=== PATIENT | female | born 1975 | race African-American/Black ===

== ENCOUNTER 2018-04-11 21:44 | Emergency (ER) | payer OTHER ==
[~2018-04-11] VITALS: Ht 170.2 cm; Wt 93.4 kg
[~2018-04-11 21:44] MED LIST: NO MEDS; PHENTERMINE H37.5 MG PO; TOPAMAX25 MG PO
--- OUTSIDE RECORDS SUMMARY | 2018-04-11 21:48 | XMS REPORT | Continuity of Care Document ---
Author Author Interface Organization Interface Address Unknown Phone Unavailable Problems Problem Status Onset Date Classification Date Reported Comments Source FOLLOW UP Active 03/30/2018 [facility] Benign neoplasm of meninges, unspecified 01/02/201803/2018 [facility] Encounter for antineoplastic radiation therapy 12/03/2017 03/06/2018 [facility] IMRT Active 10/29/2017 [facility] CONSULT Active 09/14/2017 [facility] Discharge Diagnosis: Abscess of right external cheek 07/04/2017 07/07/2017 [facility] ABSCESS Active 07/04/2017 [facility] BRAIN TUMOR Active 2016 [facility] Discharge Diagnosis: Headache 06/11/2017 06/14/2017 [facility] PAIN ON RIGHT SIDE OF HEAD BLURED VISION Active 06/07/2017 [facility] LAB, FOLLOW UP Active 2016 [facility] DVT; PRE SURGICAL CLEARANCE Active 02/04/2017 [facility] CAROTID OCCLUSION Active [facility] SEIZURE Active 01/02/2017 [facility] DX: D33.0=BENIGN NEOPLASM OF BRAIN, SUPR Active 05/06/2016 [facility] Discharge Diagnosis: Acute headache 04/16/20162015 [facility] Discharge Diagnosis: Brain mass 04/16/2016 04/19/2016 [facility] HEADACHE/NAUSEA Active 2015 [facility] Discharge Diagnosis: Corneal abrasion, left 06/24/2015 06/27/2015 [facility] EYE PAIN Active 06/24/2015 [facility] HEADACHE/BLURRED VISION Active 11/26/2013 [facility] RIGHT SIDE FACIAL PAIN Active 06/21/2013 [facility] Brain tumor Active Problem 04/06/2018 [facility], [facility] GERD (<span [id number]</span>) Active Problem 04/06/2018 [facility], [facility] Obesity Active Problem 04/06/2018 [facility], [facility] Obesity (<span [id number]">Confirmed</span>)<sup>1</sup> Active Problem 04/06/2018 BMI-33.3 [facility], [facility] Brain tumor Active Problem 06/25/2013 [facility] Skin lesion of cheek Active Diagnosis 01/19/2018 Enayet Rahim Screening for breast cancer Active Diagnosis 01/19/2018 Enayet Rahim Encounter to establish care Active Diagnosis 01/19/2018 Enayet Rahim Screening for cervical cancer Active Diagnosis 2017 Enayet Rahim UNSPECIFIED CONVULSIONS Active [facility] Medications Medication Details Route Status Patient Instructions Ordering Provider Order Date Source Ondansetron 8 MG Oral Tablet
8 mg=1 tab, PO, TID , as needed for nausea, # 90 tab, 0 Refill(s), Pharmacy: [facility]/pharmacy #[id number] Active 11/13/2017 [facility] {21 (Methylprednisolone 4 MG Oral Tablet [Medrol]) } Pack [Medrol Dosepak]
See Instructions, PO, Take by mouth as directed on label., # 1 Pack, 0 Refill(s), Pharmacy: [id number] Active 11/05/2017 [facility] Ondansetron 8 MG Oral Tablet
8 mg=1 tab, PO, TID , as needed for nausea, # 90 tab, 0 Refill(s), Pharmacy: [facility] [id number] Active 11/05/2017 [facility] Ondansetron 8 MG Oral Tablet
8 mg=1 tab, PO, TID , as needed for nausea, # 90 tab, 0 Refill(s), Pharmacy: [facility]/pharmacy #[id number] Active 10/29/2017 [facility] Acetaminophen 325 MG / Hydrocodone Bitartrate 10 MG Oral Tablet
1 tab, PO, Q6H, PRN Pain Score 4-6, # 60 tab, 0 Refill(s) Active 08/19/2017 [facility] Ondansetron 4 MG Oral Tablet [Zofran]
4 mg=1 tab , PO, Q8H, PRN Nausea/vomiting, # 30 tab, 0 Refill(s), Pharmacy: [facility]/pharmacy # [id number] Active 08/19/2017 [facility] senna 8.6 mg oral tablet
17.2 mg=2 tab, PO, Bedtime, PRN Constipation, X 10 day, # 20 tab, 0 Refill(s), Pharmacy: [facility]/ pharmacy #[id number] Active 2016 [facility] magnesium citrate 58.2 MG/ML Oral Solution
8.725 fn=784 ml, PO, ONCE, if no bowel movement in couple days, # 300 ml, 0 Refill(s) , Pharmacy: [facility]/pharmacy #[id number] Active 08/19/2017 [facility] Dexamethasone 4 MG Oral Tablet
See Instructions, 4 mg TID on days 1 and 2 2 mg BID on days 3 and 4 2 mg daily on days 5 and 6 1 mg daily on day 7 and then stop, # 20 tab, 0 Refill(s), Pharmacy: [facility]/ pharmacy #[id number] Active 2016 [facility] Docusate Sodium 100 MG Oral Capsule [Colace]
100 mg=1 cap, PO, BID, # 28 cap, 0 Refill(s), Pharmacy: [facility]/pharmacy #[id number] Active 08/19/2017 [facility] heparin sodium, porcine 2500 UNT/ML Injectable Solution
5,000 unit, 1 mL, Route: SUB-Q, Drug form: INJ, Q8H, Dosing Weight 100, kg, Start date: 08/19/17 0:00:00 CDT, Duration: 30 day, Stop date: 09/17/17 16: 00:00 [employer]
Notes: porcine heparin Inactive 08/19/2017 [facility] Erythromycin
1 appl, Route: RIGHT EYE, QID, Drug form: OINT, Start date: 08/18/17 21:00:00 CDT, Duration: 5 day, Stop date: 08/23 17:00:00 CDT No Longer Active 08/19/2017 [facility] Amlodipine
5 mg, 1 tab, Route: PO, Drug form: TAB , Daily, Dosing Weight 100, kg, Priority: NOW, Start date: 08/18/17 13:27:00 CDT , Duration: 30 day, Stop date: 09/17/17 9:00:00 [employer]
Notes: (Same as: Norvasc ) No Longer Active 08/18/2017 [facility] Cefazolin
2 gm, Route: IVPB, Q8H, Dosing Weight 100, kg, Start date: 08/17/17 22:00:00 CDT, Duration: 3 doses or times, Stop date: 08/18/17 14:00:00 CDT, ABX Indication: Surgical Prophylaxis
Notes: ( Same As: Annia Jensen) Cefazolin FOR IV SET ONLY MEDICATION WASTE * Product Size: 1000 mg Product Wasted: ___ mg No Longer Active 08/18/2017 [facility] Levetiracetam 500 MG Oral Tablet
1,000 mg, 2 tab , Route: PO, Drug form: TAB, Q12H, Dosing Weight 100, kg, Start date: 08/17/17 21:00:00 CDT, Duration: 30 day, Stop date: 09/16/17 9:00:00 [employer]
Notes: ( Same as:Keppra) No Longer Active 08/18/2017 [facility] Saline Flush 0.9%
10 ml, Route: IVP, Drug Form: INJ, Dosing Weight 100, kg, Q12H, Start date: 08/17/17 21:00:00 CDT, Duration: 30 day, Stop date: 09/16/17 9:00:00 [employer]
Notes: (Same as: BD Posiflush) No Longer Active 08/18/2017 [facility] Docusate
100 mg, 1 cap, Route: PO, Drug form: CAP , Q12H, Dosing Weight 100, kg, Start date: 08/17/17 21:00:00 CDT, Duration: 30 day, Stop date: 09/16/17 9:00:00 [employer]
Notes: (Same as: Colace) (Do Not Crush ) No Longer Active 08/18/2017 [facility] Famotidine
20 mg, 2 mL, Route: IVP, Drug form: INJ, Q12H, Dosing Weight 100, kg, Start date: 08/17/17 21:00:00 CDT, Duration: 30 day, Stop date: 09/16/17 9:00:00 [employer]
Notes: (Same as: Pepcid) Can be dilute in 5-10cc NS IVP: Slow IV push over at least 2 minutes. No Longer Active 08/18/2017 [facility] sennosides, RETIREMENT
8.6 mg, 1 tab, Route: PO, Drug Form: TAB, Dosing Weight 100, kg, Q12H, Start date: 08/17/17 21:00:00 CDT, Duration: 30 day, Stop date: 09/16/17 9:00:00 [employer]
Notes: (Same as: Garrettokot) No Longer Active 08/18/2017 [facility] Nicardipine
20 mg, 200 mL, Rate: Titrate, Start Dose: 5 mg/hr, Titration: 2.5 mg/hr every 15 minutes, Goal(s): SBP 110-140, Max Dose: 15 mg/hr, Route: IV, Dosing Weight 100 kg, Total Volume: 200, Start date: 08/17/17 19:34:00 CDT, Duration: 30 day, Stop date: ...
Notes: Same as: Cardene Concentration: (0.1 mg/ 1 ml) No Longer Active 08/18/2017 [facility] Ondansetron
4 mg, 2 mL, Route: IVP, Drug form: INJ, Q6H, Dosing Weight 100, kg, PRN Nausea & Vomiting, Priority: NOW, Start date: 08/17/17 19:10:00 CDT, Duration: 30 day, Stop date: 09/16/17 19:09:00 [employer]< br/>Notes: (Same as: Mily) MEDICATION WASTE Product Size: 4 mg Product Wasted: ___ mg No Longer Active 08/18/2017 [facility] Dexamethasone
4 mg, 1 mL, Route: IVP, Drug form: INJ, Q6H, Dosing Weight 100, kg, Start date: 08/17/17 19:07:00 CDT, Duration: 30 day, Stop date: 09/16/17 19:00:00 [employer] No Longer Active 08/18/2017 [facility] Labetalol
10 mg, 2 mL, Route: IVP, Drug form: INJ , Q4H, Dosing Weight 100, kg, PRN Hypertension, Start date: 08/17/17 19:00:00 CDT, Duration: 30 day, Stop date: 09/16/17 18:59:00 [employer] No Longer Active 08/18/2017 [facility] Nicardipine
20 mg, 200 mL, Rate: Titrate, Start Dose: 5 mg/hr, Titration: 2.5 mg/hr every 15 minutes, Goal(s): SBP < 140, Max Dose: 15 mg/hr, Route: IV, Dosing Weight 100 kg, Total Volume: 200, Start date: 08/17/17 18:48:00 CDT, Duration: 30 day, Stop date: 09/16...
Notes: Same as : Cardene Concentration: (0.1 mg/ 1 ml) Inactive 08/17/2017 [facility] Potassium Chloride
20 mEq, 1 tab, Route: PO, Drug form: ERTAB, PRN, Dosing Weight 100, kg, PRN Abnormal Lab Result, Start date: 08/17/17 17:37:00 CDT, Duration: 30 day, Stop date: 09/16/17 16:36:00 [employer] , FOR ICU USE ONLY
Notes: (Same as: K-Dur 20) "Do Not Crush" With food and full glass of water No Longer Active 08/17/2017 [facility] potassium phosphate
45 mmol, 15 mL, Route: IVPB, PRN, Dosing Weight 100, kg, PRN Abnormal Lab Result, Start date: 08/17/17 17:37: 00 CDT, Duration: 30 day, Stop date: 09/16/17 16:36:00 [employer], FOR ICU USE ONLY<br/ >Notes: (Same as: K Phosphate.) 1 mMol phoshate has 1.47 mEq potassium Infuse over 4 hours No Longer Active 08/17/2017 [facility] sodium phosphate
45 mmol, 15 mL, Route: IVPB, PRN , Dosing Weight 100, kg, PRN Abnormal Lab Result, Start date: 08/17/17 17:37:00 CDT, Duration: 30 day, Stop date: 09/16/17 16:36:00 [employer], FOR ICU USE ONLY No Longer Active 08/17/2017 [facility] Magnesium Sulfate
2 gm, 50 mL, Route: IVPB, Drug form: INJ, PRN, Dosing Weight 100, kg, PRN Abnormal Lab Result, Start date: 17:37:00 CDT, Duration: 30 day, Stop date: 09/16/17 16:36:00 [employer], FOR ICU USE ONLY
Notes: WASTE: F/P - Sink; E - Municipal Trash Bin No Longer Active 08/17/2017 [facility] Calcium Carbonate 500 MG Chewable Tablet
1,000 mg , 2 tab, Route: PO, Drug form: CHEWTAB, PRN, Dosing Weight 100, kg, PRN Abnormal Lab Result, FOR ICU USE ONLY, Start date: 08/17/17 17:37:00 CDT, Duration: 30 day, Stop date: 09/16/17 16:36:00 [employer]
Notes: (Same As: Tums) Calcium Carbonate 500 zc=328 mg elemental calcium Dose= mg calcium carbonate ( mg elemental calcium) No Longer Active 08/17/2017 [facility] Magnesium Oxide
800 mg, 2 tab, Route: PO, Drug form: TAB, PRN, Dosing Weight 100, kg, PRN Abnormal Lab Result, FOR ICU USE ONLY , Start date: 08/17/17 17:37:00 CDT, Duration: 30 day, Stop date: 09/16/17 16:36 :00 [employer]
Notes: (Same as: Mag-Ox 400) Magnesium oxide [id number] elemental magnesium Dose=____mg magnesium oxide (___mg elemental magnesium) No Longer Active 08/17/2017 [facility] potassium phosphate-sodium phosphate 250 mg-280 mg-160 mg oral powder for reconstitution
2 pkt, Route: PO, Drug Form: PDR/ REC, Dosing Weight 100, kg, PRN, PRN Abnormal Lab Result, FOR ICU USE ONLY, Start date: 08/17/17 17:37:00 CDT, Duration: 30 day, Stop date: 09/16/17 16:36: 00 [employer]
Notes: (Same as: Phos-NaK) Each 1.5 gm pkt has 250mg phosphorous. Mix w/2.5oz water and stir. No Longer Active 08/17/2017 [facility] Calcium Gluconate
1 gm, 10 mL, Route: IVPB, PRN, Dosing Weight 100, kg, PRN Abnormal Lab Result, Start date: 08/17/17 17:37:00 CDT, Duration: 30 day, Stop date: 09/16/17 16:36:00 [employer], FOR ICU USE ONLY<br/&gt ;Notes: WASTE: F/P - Sink; E - Municipal Trash Bin No Longer Active 08/17/2017 [facility] Nicardipine
20 mg, 200 mL, Rate: Titrate, Start Dose: 5 mg/hr, Titration: 2.5 mg/hr every 15 minutes, Goal(s): SBP < 140, Max Dose: 15 mg/hr, Route: IV, Dosing Weight 100 kg, Total Volume: 200, Start date: 08/17/17 15:30:00 CDT, Duration: 30 day, Stop date: 09/16... Inactive 08/17/2017 [facility] labetalol (ANES)
Route: IV, Drug form: INJ, ONCE , Stop date: 08/17/17 15:22:00 CDT Inactive 08/17/2017 [facility] niCARdipine (ANES)
Route: IV, Drug form: INJ, ONCE, Stop date: 08/17/17 15:22:00 CDT Inactive 08/17/2017 [facility] Hydralazine
10 mg, 0.5 mL, Route: IVP, Drug form : INJ, Q4H, Dosing Weight 100, kg, PRN Hypertension, Start date: 08/17/17 15:12: 00 CDT, Duration: 30 day, Stop date: 09/16/17 15:11:00 [employer]
Notes: (Same as: Apresoline) Push over 5 minutes No Longer Active 08/17/2017 [facility] Labetalol
10 mg, Route: IVP, Drug form: INJ, [id number], Dosing Weight 100, kg, PRN Hypertension, Start date: 08/17/17 15:11: 00 CDT, Duration: 3 doses or times, Stop date: Limited # of times Inactive 08/17/2017 [facility] Saline Flush 0.9%
10 ml, Route: IVP, Drug Form: INJ, Dosing Weight 100, kg, PRN, PRN Line Flush, Start date: 08/17/17 15:08:00 CDT, Duration: 30 day, Stop date: 09/16/17 14:07:00 [employer]
Notes: (Same as: BD Posiflush) No Longer Active [facility] Ondansetron
4 mg, 2 mL, Route: IVP, Drug form: INJ, Q8H, Dosing Weight 100, kg, PRN Nausea & Vomiting, Start date: 08/17/17 15: 08:00 CDT, Duration: 30 day, Stop date: 09/16/17 15:07:00 [employer]
Notes: (Same as: Mily) MEDICATION WASTE Product Size: 4 mg Product Wasted: ___ mg Inactive 08/17/2017 [facility] Acetaminophen 325 MG / Hydrocodone Bitartrate 10 MG Oral Tablet
1 tab, Route: PO, Drug Form: TAB, Dosing Weight 100, kg, Q4H, PRN Pain Score 4-6, Start date: 08/17/17 15:08:00 CDT, Duration: 30 day, Stop date: 09/16/17 15:07:00 [employer]
Notes: Do not exceed 4gm/day of acetaminophen. (Same as: [place] 325/10) No Longer Active 08/17/2017 [facility] Morphine
2 mg, 0.5 mL, Route: IVP, Drug form: SOLN, Q2H, Dosing Weight 100, kg, PRN Pain Score 7-10, Start date: 08/17/17 15: 08:00 CDT, Stop date: 09/16/17 15:07:00 [employer]
Notes: (Same as:MORPhine Sulfate ) No Longer Active 08/17/2017 [facility] sodium chloride 0.9% 1000 ml INJ 1,000 mL
1,000 mL, Rate: 100 ml/hr, Infuse over: 10 hr, Route: IV, Dosing Weight 100 kg, Total Volume: 1,000, Start date: 08/17/17 15:08:00 CDT, Stop date: 09/16/17 15:07:00 [employer] No Longer Active 2016 [facility] ondansetron (ANES)
Route: IV, Drug form: INJ, ONCE, Stop date: 08/17/17 14:52:00 CDT Inactive 08/17/2017 [facility] acetaminophen (ANES)
Route: IV, Drug form: INJ, ONCE, Stop date: 08/17/17 13:22:00 CDT Inactive 08/17/2017 [facility] Flumazenil
0.2 mg, 2 mL, Route: IVP, Drug form: INJ, PRN, Dosing Weight 100, kg, PRN Benzodiazepine Reversal, Initial dose, Start date: 08/17/17 12:57:00 CDT, Duration: 30 day, Stop date: 09/16/17 11:56: 00 [employer]
Notes: (Same as: Romazicon) Inactive 08/17/2017 [facility] Naloxone
0.4 mg, 1 mL, Route: IVP, Drug form: INJ , Q2MIN, Dosing Weight 100, kg, PRN Narcotic Reversal, Start date: 08/17/17 12: 57:00 CDT, Duration: 8 doses or times, Stop date: 08/18/17 0:00:00 CDT
Notes : Same as Narcan Inactive 08/17 [facility] Dexamethasone
4 mg, 1 mL, Route: IVP, Drug form: INJ, ONCE, Dosing Weight 100, kg, PRN Nausea & Vomiting, Start date: 08/17/17 12 :57:00 CDT
Notes: Concentration: 4mg/ml Inactive 08/17/2017 [facility] Ondansetron
4 mg, 2 mL, Route: IVP, Drug form: INJ, ONCE, Dosing Weight 100, kg, PRN Nausea & Vomiting, Start date: 08/17/17 12 :57:00 CDT
Notes: (Same as: Zoan) MEDICATION WASTE Product Size : 4 mg Product Wasted: ___ mg Inactive 08/17/2017 [facility] Hydralazine
10 mg, 0.5 mL, Route: IVP, Drug form : INJ, Q20Min, Dosing Weight 100, kg, PRN Elevated BP, Start date: 08/17/17 12: 57:00 CDT, Duration: 2 doses or times, Stop date: 08/18/17 0:00:00 CDT
Notes : (Same as: Apresoline) Push over 5 minutes Inactive 08/17/2017 [facility] Hydromorphone
0.5 mg, 0.25 mL, Route: IVP, Drug form: INJ, Q5Min, Dosing Weight 100, kg, PRN Pain Score 7-10, Start date: 12:57:00 CDT, Duration: 4 doses or times, Stop date: 08/18/17 0:00:00 CDT<br/ >Notes: Same as: Dilaudid Inactive 08/17/2017 [facility] famotidine (ANES)
Route: IV, Drug form: INJ, ONCE , Stop date: 08/17/17 10:17:00 CDT Inactive 08/17/2017 [facility] calcium chloride (ANES)
Route: IV, Drug form: INJ , ONCE, Stop date: 08/17/17 10:12:00 CDT Inactive 08/17/2017 [facility] phenylephrine (ANES)
Route: IV, Drug form: INJ, ONCE, Stop date: 08/17/17 10:02:00 CDT Inactive 08/17/2017 [facility] ePHEDrine (ANES)
Route: IV, Drug form: INJ, ONCE , Stop date: 08/17/17 10:02:00 CDT Inactive 08/17/2017 [facility] ceFAZolin (ANES)
Route: IV, Drug form: INJ, ONCE , Stop date: 08/17/17 10:02:00 CDT Inactive 08/17/2017 [facility] levETIRAcetam (ANES)
Route: IV, Drug form: INJ, ONCE, Stop date: 08/17/17 9:57:00 CDT Inactive 08/17/2017 [facility] dexamethasone (ANES)
Route: IV, Drug form: INJ, ONCE, Stop date: 08/17/17 9:37:00 CDT Inactive 08/17/2017 [facility] lidocaine (ANES)
Route: IV, Drug form: INJ, ONCE , Stop date: 08/17/17 9:32:00 CDT Inactive 08/17/2017 [facility] propofol (ANES)
Route: IV, Drug form: INJ, ONCE, Stop date: 08/17/17 9:32:00 CDT Inactive 08/17/2017 [facility] rocuronium (ANES)
Route: IV, Drug form: INJ, ONCE , Stop date: 08/17/17 9:32:00 CDT Inactive 08/17/2017 [facility] fentaNYL (ANES)
Route: IV, Drug form: INJ, ONCE, Stop date: 08/17/17 9:32:00 CDT Inactive 08/17/2017 [facility] mannitol (ANES) (ANES)
Route: IV, Drug form: INJ , Start date: 08/17/17 8:45:00 CDT, Stop date: 08/17/17 9:45:00 CDT Inactive 08/17/2017 [facility] sodium chloride 0.9% 1000 ml INJ (ANES)
Route: IV , Total Volume: 1,000, Start date: 08/17/17 8:30:00 CDT, Stop date: 08/17/17 9: 30:00 CDT Inactive 08/17/2017 [facility] sodium chloride 0.9% 500 ml INJ (ANES)
Route: IV , Total Volume: 500, Start date: 08/17/17 8:29:00 CDT, Stop date: 08/17/17 9:29: 00 CDT Inactive 08/17/2017 [facility] propofol (ANES) (ANES)
Route: IV, Drug form: INJ , Start date: 08/17/17 7:43:00 CDT, Stop date: 08/17/17 8:43:00 CDT Inactive 08/17/2017 [facility] remifentanil (ANES) (ANES)
Route: IV, Drug form: INJ, Start date: 08/17/17 7:43:00 CDT, Stop date: 08/17/17 8:43:00 CDT Inactive 08/17/2017 [facility] LR 1000 mL INJ (ANES)
Route: IV, Total Volume: 1, 000, Start date: 08/17/17 7:30:00 CDT, Stop date: 08/17/17 8:30:00 CDT Inactive 08/17/2017 [facility] Ibuprofen
PO, PRN, 0 Refill(s) No Longer Active 08/12/2017 [facility] Cephalexin 500 MG Oral Capsule [Keflex]
500 mg=1 cap, PO, BID, X 7 day, # 14 cap, 0 Refill(s) Active 07/05/2017 [facility] ibuprofen 600 mg oral tablet
600 mg=1 tab, PO, Q6H, PRN Pain or Fever, Take with food, X 10 day, # 40 tab, 0 Refill(s) Active 07/05/2017 [facility] Famotidine 20 MG Oral Tablet [Pepcid]
20 mg=1 tab , PO, BID, # 28 tab, 0 Refill(s) Active 06/11/2017 [facility] Dexamethasone 4 MG Oral Tablet
4 mg=1 tab, PO, BID, X 14 day, # 28 tab, 0 Refill(s) Active 06/11/2017 [facility] Compazine
10 mg, Route: IV, ONCE, Dosing Weight 95, kg, Start date: 06/11/17 5:45:00 CDT, Stop date: 06/11/17 5:45:00 CDT Inactive 06/11/2017 [facility] Ibuprofen
800 mg, Route: PO, Drug form: TAB, ONCE , Dosing Weight 95, kg, Priority: STAT, Start date: 06/11/17 5:44:00 CDT, Stop date: 06/11/17 5:44:00 CDT Inactive 06/11/2017 [facility] Valium
5 mg, Route: PO, ONCE, Dosing Weight 95, kg, Priority: STAT, Start date: 06/11/17 1:34:00 CDT, Stop date: 06/11/17 1:34: 00 CDT Inactive 06/11/2017 [facility] sodium chloride 0.9% 1000 ml INJ 1,000 mL
1,000 mL, Rate: 100 ml/hr, Infuse over: 10 hr, Route: IVPB, Dosing Weight 95 kg, Total Volume: 1,000, Start date: 06/10/17 23:41:00 CDT, Duration: 30 day, Stop date: 07/10/17 23:40:00 CDT No Longer Active 06/11/2017 [facility] Ketorolac
30 mg, Route: IVP, Drug form: INJ, ONCE , Dosing Weight 95, kg, Priority: STAT, Start date: 06/10/17 23:34:00 CDT, Stop date: 06/10/17 23:34:00 CDT Inactive 06/11/2017 [facility] Ketorolac
30 mg, Route: IM, Drug form: INJ, ONCE , Dosing Weight 95, kg, Priority: STAT, Start date: 06/10/17 22:51:00 CDT, Stop date: 06/10/17 22:51:00 CDT Inactive 06/11/2017 [facility] Reglan
10 mg, Route: IVP, Drug form: INJ, ONCE, Dosing Weight 95, kg, Priority: STAT, Start date: 06/10/17 22:51:00 CDT, Stop date: 06/10/17 22:51:00 CDT Inactive 06/11/2017 [facility] apixaban 5 mg oral tablet
5 mg=1 tab, PO, BID, # 120 tab, 0 Refill(s) Active 05/2017 [facility] apixaban 5 mg oral tablet
10 mg=2 tab, PO, BID, # 24 tab, 0 Refill(s) Active [facility] Acetaminophen 300 MG / Codeine Phosphate 30 MG Oral Tablet [Tylenol with Codeine #3]
1 tab, PO, Q6H, PRN Pain, X 5 day, # 20 tab, 0 Refill(s) Active 03/2017 [facility] apixaban 5 mg oral tablet
10 mg=2 tab, PO, Q12H, # 28 tab, 0 Refill(s) Inactive 02/04/2017 [facility] Levetiracetam 500 MG Oral Tablet
1,000 mg=2 tab, PO, Q12H, 0 Refill(s) Active [facility] apixaban
10 mg, 2 tab, Route: PO, Drug form: TAB , Q12H, Dosing Weight 99.54, kg, Start date: 02/03/17 21:00:00 CDT, Duration: 7 day, Stop date: 02/10/17 9:00:00 CDT
Notes: Same as: Eliquis No Longer Active 02/04/2017 [facility] heparin sodium, porcine 2500 UNT/ML Injectable Solution
5,000 unit, 1 mL, Route: SUB-Q, Drug form: INJ, Q8H, Dosing Weight 99.545, kg, Start date: 02/03/17 16:00:00 CDT, Duration: 30 day, Stop date: 02/16 8:00:00 CDT
Notes: porcine heparin Inactive 02/03/2017 [facility] Dexamethasone
4 mg, 1 mL, Route: IV, Drug form: INJ, Q6H, Dosing Weight 99.545, kg, Start date: 02/03/17 12:00:00 CDT, Duration : 30 day, Stop date: 03/05/17 6:00:00 CDT
Notes: Concentration: 4mg/ml Inactive 02/03/2017 [facility] iodixanol
85 mL, Route: IVP, Drug Form: SOLN, Dosing Weight 99.545, kg, ONCALL, STAT, Start date: 02/03/17 10:51:00 CDT, Duration: 1 doses or times, Dose=2.2ml/kg, Max [id number] -- "To be infused by Radiology Staff ONLY" Inactive 02/03/2017 [facility] niCARdipine (ANES)
Route: IV, Drug form: INJ, ONCE, Stop date: 02/03/17 10:38:00 CDT Inactive 02/03/2017 [facility] ceFAZolin (ANES)
Route: IV, Drug form: INJ, ONCE , Stop date: 02/03/17 10:38:00 CDT Inactive 02/03/2017 [facility] remifentanil (ANES)
Route: IV, Drug form: INJ, ONCE, Stop date: 02/03/17 10:38:00 CDT Inactive 02/03/2017 [facility] ceFAZolin (ANES)
Route: IV, Drug form: INJ, ONCE , Stop date: 02/03/17 10:05:00 CDT Inactive 02/03/2017 [facility] naloxone (ANES)
Route: IV, Drug form: INJ, ONCE, Stop date: 02/03/17 10:05:00 CDT Inactive 02/03/2017 [facility] fentaNYL (ANES)
Route: IV, Drug form: INJ, ONCE, Stop date: 02/03/17 10:05:00 CDT Inactive 02/03/2017 [facility] rocuronium (ANES)
Route: IV, Drug form: INJ, ONCE , Stop date: 02/03/17 10:05:00 CDT Inactive 02/03/2017 [facility] propofol (ANES)
Route: IV, Drug form: INJ, ONCE, Stop date: 02/03/17 10:05:00 CDT Inactive 02/03/2017 [facility] ondansetron (ANES)
Route: IV, Drug form: INJ, ONCE, Stop date: 02/03/17 10:05:00 CDT Inactive 02/03/2017 [facility] lidocaine (ANES)
Route: IV, Drug form: INJ, ONCE , Stop date: 02/03/17 10:05:00 CDT Inactive 02/03/2017 [facility] Saline Flush 0.9%
10 ml, Route: IVP, Drug Form: INJ, Dosing Weight 99.545, kg, Q12H, Start date: 02/03/17 9:00:00 CDT, Duration : 30 day, Stop date: 03/04/17 21:00:00 CDT
Notes: Same as: BD Posiflush Sterile No Longer Active 2016 [facility] sennosides, RETIREMENT
8.6 mg, 1 tab, Route: PO, Drug Form: TAB, Dosing Weight 99.545, kg, Q12H, Start date: 02/03/17 9:00:00 CDT, Duration: 30 day, Stop date: 03/04/17 21:00:00 CDT
Notes: (Same as: Senokot ) No Longer Active 02/03/2017 [facility] Docusate
100 mg, 1 cap, Route: PO, Drug form: CAP , Q12H, Dosing Weight 99.545, kg, Start date: 02/03/17 9:00:00 CDT, Duration: 30 day, Stop date: 03/04/17 21:00:00 CDT
Notes: (Same as: Colace) (Do Not Crush) No Longer Active 2016 [facility] Famotidine
20 mg, 2 mL, Route: IVP, Drug form: INJ, Q12H, Dosing Weight 99.545, kg, Start date: 02/03/17 9:00:00 CDT, Duration : 30 day, Stop date: 03/04/17 21:00:00 CDT
Notes: (Same as: Pepcid) Can be dilute in 5-10cc NS IVP: Slow IV push over at least 2 minutes. Inactive 02/03/2017 [facility] Levetiracetam
1,000 mg, 2 tab, Route: PO, Drug form: TAB, Q12H, Dosing Weight 99.545, kg, Start date: 02/03/17 9:00:00 CDT, Duration: 30 day, Stop date: 03/04/17 21:00:00 CDT
Notes: (Same as:Keppra) No Longer Active 02/03/2017 [facility] Cefazolin
2 gm, Route: IVPB, ABXQ8H, Dosing Weight 99.545, kg, Start date: 02/03/17 8:00:00 CDT, Duration: 3 doses or times , Stop date: 02/04/17 0:00:00 CDT
Notes: (Same As: Ancef, Kefzol) MEDICATION WASTE Product Size: 1000 mg Product Wasted: ___ mg No Longer Active 02/03/2017 [facility] remifentanil (ANES) (ANES)
Route: IV, Drug form: INJ, Start date: 02/03/17 7:49:00 CDT, Stop date: 02/03/17 8:49:00 CDT Inactive 02/03/2017 [facility] LR 1000 mL INJ (ANES)
Route: IV, Total Volume: 1, 000, Start date: 02/03/17 7:47:00 CDT, Stop date: 02/03/17 8:47:00 CDT Inactive 02/03/2017 [facility] Regular Insulin, Human 100 UNT/ML Injectable Solution
7 unit, 0.07 mL, Route: SUB-Q, Drug form: SOLN, PRN, Dosing Weight 99.545, kg, PRN Abnormal Lab Result, Start date: 02/03/17 6:26:00 CDT, Duration: 30 day , Stop date: 03/05/17 6:25:00 CDT
Notes: (Same as: Humulin R) Roll in palms of hands gently; Do not shake vigorously. "single patient use only" ( Restricted to patients requiring a dose > 60 units) WASTE: F/P - Black; E - Municipal Trash Bin Stable for 28 days at room temperature Expires in days from Date Inactive 02/03/2017 [facility] Dextrose 50% Syringe
6.25 gm, 12.5 mL, Route: IVP , Drug Form: INJ, Dosing Weight 99.545, kg, PRN, PRN Abnormal Lab Result, Start date: 02/03/17 6:26:00 CDT, Duration: 30 day, Stop date: 03/05/17 6:25:00 CDT Inactive 02/03/2017 [facility] Saline Flush 0.9%
10 ml, Route: IVP, Drug Form: INJ, Dosing Weight 99.545, kg, PRN, PRN Line Flush, Start date: 02/03/17 6:26: 00 CDT, Duration: 30 day, Stop date: 03/05/17 6:25:00 CDT
Notes: Same as: BD Posiflush Sterile No Longer Active 02/03/2017 [facility] Hydromorphone
0.5 mg, 0.25 mL, Route: IV, Drug form: INJ, Q3H, Dosing Weight 99.545, kg, PRN Pain Score 7-10, Start date: 02/03 6:26:00 CDT, Duration: 30 day, Stop date: 03/05/17 6:25:00 CDT
Notes: Same as: Dilaudid No Longer Active 02/03/2017 [facility] Ondansetron
4 mg, 2 mL, Route: IVP, Drug form: INJ, Q8H, Dosing Weight 99.545, kg, PRN Nausea & Vomiting, Start date: 02/03/17 6:26:00 CDT, Duration: 30 day, Stop date: 03/05/17 6:25:00 CDT
Notes: ( Same as: Mily) MEDICATION WASTE Product Size: 4 mg Product Wasted: ___ mg No Longer Active 02/03 [facility] Metoclopramide
10 mg, 2 mL, Route: IVP, Drug form : INJ, Q6H, Dosing Weight 99.545, kg, PRN as needed for nausea/vomiting, Start date: 02/03/17 6:26:00 CDT, Duration: 48 hr, Stop date: 02/05/17 6:25:00 CDT<br/ >Notes: (Same as: Reglan) No Longer Active 02/03/2017 [facility] Acetaminophen 325 MG / Hydrocodone Bitartrate 5 MG Oral Tablet
1 tab, Route: PO, Drug Form: TAB, Dosing Weight 99.545, kg, Q4H, PRN Pain Score 1-3, Start date: 02/03/17 6:26:00 CDT, Duration: 30 day, Stop date: 03/05/17 6:25:00 CDT
Notes: (Same as: [place] 325/5) Do not exceed 4gm/ day of acetaminophen. No Longer Active 02/03/2017 [facility] Acetaminophen 325 MG / Hydrocodone Bitartrate 10 MG Oral Tablet
1 tab, Route: PO, Drug Form: TAB, Dosing Weight 99.545, kg, Q4H , PRN Pain Score 4-6, Start date: 02/03/17 6:26:00 CDT, Duration: 30 day, Stop date: 03/05/17 6:25:00 CDT
Notes: Do not exceed 4gm/day of acetaminophen. ( Same as: [place] 325/10) No Longer Active 02/03/2017 [facility] Ibuprofen 400 MG Oral Tablet
600 mg, Route: PO, ONCE, Dosing Weight 94.545, kg, Start date: 01/27/17 16:13:00 CDT, Stop date: 16:13:00 CDT Inactive [facility] Ofirmev
1,000 mg, Route: IV, Drug form: INJ, ONCE , Dosing Weight 94.545, kg, PRN Pain Score 1-3, for > or=50 kg, Start date: 14:10:00 CDT Inactive [facility] Verapamil
5 mg, Route: INTRAARTERIAL, ONCE, Dosing Weight 94.545, kg, Start date: 01/27/17 12:15:00 CDT, Stop date: 12:15:00 CDT Inactive 2016 [facility] Nitroglycerin
200 microgram, Route: INTRAARTERIAL , ONCE, Dosing Weight 94.545, kg, Start date: 01/27/17 12:12:00 CDT, Stop date: 01/27/17 12:12:00 CDT Inactive 01/27/2017 [facility] Nitroglycerin
200 microgram, Route: INTRAARTERIAL , ONCE, Dosing Weight 94.545, kg, Start date: 01/27/17 12:08:00 CDT, Stop date: 01/27/17 12:08:00 CDT Inactive 01/27/2017 [facility] Lidocaine Hydrochloride 10 MG/ML Injectable Solution < br/>1 ml, Route: SUB-Q, Dosing Weight 94.545, kg, ONCE, Start date: 01/27/17 11: 33:00 CDT, Stop date: 01/27/17 11:33:00 CDT Inactive 01/27/2017 [facility] Omnipaque 300
150 ml, Route: INTRAARTERIAL, Dosing Weight 94.545, kg, ONCE, Start date: 01/27/17 11:32:00 CDT, Stop date: 11:32:00 CDT Inactive [facility] Saline Flush 0.9%
10 ml, Route: IVP, Drug Form: INJ, Dosing Weight 93.636, kg, Q12H, Start date: 01/02/17 21:00:00 [employer], Duration : 30 day, Stop date: 02/01/17 9:00:00 CDT
Notes: Same as: BD Posiflush Sterile Inactive 01/03/2017 [facility] Famotidine
20 mg, 2 mL, Route: IVP, Drug form: INJ, Q12H, Dosing Weight 93.636, kg, Start date: 01/02/17 21:00:00 [employer], Duration : 30 day, Stop date: 02/01/17 9:00:00 CDT
Notes: (Same as: Pepcid) Can be dilute in 5-10cc NS IVP: Slow IV push over at least 2 minutes. Inactive 01/03/2017 [facility] sennosides, RETIREMENT
8.6 mg, 1 tab, Route: PO, Drug Form: TAB, Dosing Weight 93.636, kg, Q12H, Start date: 01/02/17 21:00:00 [employer], Duration: 30 day, Stop date: 02/01/17 9:00:00 CDT
Notes: (Same as: Senokot) Inactive 01/03/2017 [facility] Docusate
100 mg, 1 cap, Route: PO, Drug form: CAP , Q12H, Dosing Weight 93.636, kg, Start date: 01/02/17 21:00:00 [employer], Duration: 30 day, Stop date: 02/01/17 9:00:00 CDT
Notes: (Same as: Colace) (Do Not Crush) Inactive 01/03/2017 [facility] Levetiracetam 500 MG Oral Tablet [Keppra]
500 mg , 1 tab, Route: PO, Drug form: TAB, BID, Dosing Weight 93.636, kg, Start date: 01/02/17 21:00:00 [employer], Duration: 30 day, Stop date: 02/01/17 9:00:00 CDT
Notes: (Same as:Keppra) Inactive 01/03/2017 [facility] pneumococcal capsular polysaccharide type 1 vaccine / pneumococcal capsular polysaccharide type 10A vaccine / pneumococcal capsular polysaccharide type 11A vaccine / pneumococcal capsular polysaccharide type 12F vaccine / pneumococcal capsular polysacchar
0.5 mL, Route: IM, Drug Form : INJ, Daily, Start date: 01/02/17 18:30:00 [employer], Duration: 1 doses or times, Stop date: 01/02/17 18:30:00 [employer]
Notes: (Same as: Pneumovax 23) Refrigerate Inactive 2016 [facility] Dexamethasone
4 mg, 1 tab, Route: PO, Drug form: TAB, Q6H, Dosing Weight 93.636, kg, Start date: 01/02/17 18:00:00 [employer], Duration : 30 day, Stop date: 02/01/17 12:00:00 CDT
Notes: Give with food. (Same As: Decadron) Inactive 01/03/2017 [facility] dexamethasone 4 mg oral tablet
4 mg=1 tab, PO, BID, with food, X 7 day, # 14 tab, 0 Refill(s) Active 01/02/2017 [facility] dexamethasone 4 mg oral tablet
4 mg=1 tab, PO, BID, with food, 0 Refill(s) Inactive 01/02/2017 [facility] Famotidine 20 MG Oral Tablet [Pepcid]
20 mg=1 tab , PO, BID, # 60 tab, 0 Refill(s) Active 01/02/2017 [facility] Levetiracetam 500 MG Oral Tablet [Keppra]
1,000 mg=2 tab, PO, BID, # 120 tab, 0 Refill(s) Active 01/02/2017 [facility] Saline Flush 0.9%
10 ml, Route: IVP, Drug Form: INJ, Dosing Weight 93.636, kg, PRN, PRN Line Flush, Start date: 01/02/17 11:26: 00 [employer], Duration: 30 day, Stop date: 02/01/17 12:25:00 CDT
Notes: Same as: BD Posiflush Sterile Inactive 01/02/2017 [facility] Ondansetron
4 mg, 2 mL, Route: IVP, Drug form: INJ, Q8H, Dosing Weight 93.636, kg, PRN Nausea & Vomiting, Start date: 01/02/17 11:26:00 [employer], Duration: 30 day, Stop date: 02/01/17 11:25:00 CDT
Notes: ( Same as: Mily) MEDICATION WASTE Product Size: 4 mg Product Wasted: ___ mg Inactive 01/02/2017 [facility] Dexamethasone
10 mg, 1 mL, Route: IVP, Drug form : INJ, ONCE, Dosing Weight 93.636, kg, Start date: 01/02/17 11:26:00 [employer], Stop date: 01/02/17 11:26:00 [employer]
Notes: MEDICATION WASTE Product Size: 10 mg Product Wasted: ___ mg Inactive 01/02/2017 [facility] Acetaminophen
650 mg, 2 tab, Route: PO, Drug form : TAB, Q4H, Dosing Weight 93.636, kg, PRN Pain 1-3/Temp > 99.5 F, Start date: 11:26:00 [employer], Duration: 30 day, Stop date: 02/01/17 11:25:00 CDT
Notes: Do not exceed 4 gm/day. (Same as: Tylenol) Inactive 01/02/2017 [facility] Acetaminophen 325 MG / Hydrocodone Bitartrate 5 MG Oral Tablet
1 tab, Route: PO, Drug Form: TAB, Dosing Weight 93.636, kg, Q4H, PRN Pain Score 1-3, Start date: 01/02/17 11:26:00 [employer], Duration: 30 day, Stop date: 02/01/17 11:25:00 CDT
Notes: (Same as: [place] 325/5) Do not exceed 4gm /day of acetaminophen. Inactive 01/02/2017 [facility] Keppra
1,000 mg, Route: IVP, ONCE, Dosing Weight 93.636, kg, Start date: 01/02/17 9:24:00 [employer], Stop date: 01/02/17 9:24:00 [employer] Inactive 01/02/2017 [facility] Iohexol
60 mL, Route: IVP, Drug Form: SOLN, Dosing Weight 93.636, kg, ONCALL, STAT, Start date: 01/02/17 9:15:00 [employer], Duration: 1 doses or times, Stop date: 01/02/17 21:00:00 [employer], Dose=2.2ml/kg, Max smpd=[id number] -- "To be infused by Radiology Staff ONLY"
Notes: (same as: Omnipaque 350). WASTE: F/P - Black; E - Municipal Trash Bin Inactive 01/02/2017 [facility] Valium
5 mg, Route: PO, ONCE, Dosing Weight 93.636, kg, Priority: STAT, Start date: 01/02/17 8:56:00 [employer], Stop date: 8:56:00 [employer] Inactive 2016 [facility] Isolyte S PH-7.4 (Bolus) IV
1,000 mL, Route: IV, Dosing Weight 93.636, kg, ONCE, Start date: 01/02/17 6:10:00 [employer], Stop date: 01/16 6:10:00 [employer] Inactive 12/2016 [facility] Acetaminophen 325 MG / Hydrocodone Bitartrate 5 MG Oral Tablet [[place] 5/325]
1 tab, PO, Q6H, PRN for pain, X 3 day, # 12 tab, 0 Refill(s) Active 04/16/2016 [facility] Morphine
4 mg, Route: IVP, Drug form: INJ, ONCE, Dosing Weight 91.818, kg, Priority: STAT, Start date: 04/16/16 14:37:00 CDT, Stop date: 04/16/16 14:37:00 CDT Inactive 04/16/2016 [facility] Sodium Chloride 0.154 MEQ/ML Injectable Solution
500 mL, 500 ml/hr, Infuse Over: 1 hr, Route: IV, ONCE, Priority: STAT, Dosing Weight 91.818 kg, Start date: 04/16/16 13:48:00 CDT, Duration: 1 doses or times , Stop date: 04/16/16 13:48:00 CDT Inactive 04/16/2016 [facility] Reglan
20 mg, Route: IV, ONCE, Dosing Weight 91.818, kg, Start date: 04/16/16 13:48:00 CDT, Stop date: 04/16/16 13:48:00 CDT Inactive 04/16/2016 [facility] Benadryl
25 mg, Route: IVP, ONCE, Dosing Weight 91.818, kg, Start date: 04/16/16 13:48:00 CDT, Stop date: 04/16/16 13:48:00 CDT Inactive 04/16/2016 [facility] tramadol hydrochloride 50 MG Oral Tablet
50 mg=1 tab, PO, Q6H, PRN Pain, X 7 day, # 28 tab, 0 Refill(s) Active 06/25/2015 [facility] moxifloxacin 0.5% ophthalmic solution
1 drp, Each Affected Eye, TID, X 7 day, # 3 mL, 0 Refill(s) Active 06/25/2015 [facility] Acetaminophen 325 MG / Hydrocodone Bitartrate 7.5 MG Oral Tablet [[place] 7.5/325 ]
1 tab, Route: PO, Drug Form: TAB, Dosing Weight 90, kg, ONCE, STAT, Start date: 06/24/15 20:24:00, Stop date: 06/24/15 20:24:00 Inactive 06/25/2015 [facility] Zofran ODT 4 mg, Route: PO, ONCE, Dosing Weight 90, kg , Start date: 11/26/13 18:01:00, Stop date: 11/26/13 18:01:00 Inactive Will 11/27/2013 [facility] Zofran 4 mg oral tablet 4 mg=1 tab, PO, BID, # 6 tab, 0 Refill(s) Active Will [facility] [place] 5/325 oral tablet 1 tab, PO, Q4-6H, as needed for pain, # 12 tab, 0 Refill(s) Active Will 11/26/2013 [facility] Dilaudid 1 mg, 1 mL, Route: IM, Drug form: INJ, ONCE, Dosing Weight 90, kg, Start date: 11/26/13 17:00:00, Stop date: 11/26/13 17:00: 00 Inactive Will 2013 [facility] ondansetron 4 mg, 1 tab, Route: PO, Drug form: TABDIS , ONCE, Dosing Weight 90, kg, Priority: STAT, Start date: 11/26/13 16:59:00, Stop date: 11/26/13 16:59:00(Same as: Zofran ODT) Inactive Will 11/26/2013 [facility] acetaminophen-hydrocodone 325 mg-5 mg oral tablet 1 tab, PO, Q4H, PRN, 12 tab, for pain, Substitution Allowed, Maintenance, TAB PO Active [place] 06/23/2013 [facility] ketorolac 30 mg, Route: IVP, Drug form: INJ, ONCE, kg , Priority: STAT, Start date: 06/23/13 0:13:00, Stop date: 06/23/13 0:13:00 IVP No Longer Active Ch[facility] Reglan 20 mg, Route: IV, ONCE, kg, Start date: 0:13:00, Stop date: 06/23/13 0:13:00 IV No Longer Active [place] 06/23/2013 [facility] Benadryl 25 mg, Route: IVP, ONCE, kg, Priority: STAT, Start date: 06/23/13 0:13:00, Stop date: 06/23/13 0:13:00 IVP No Longer Active [place] 06/23/2013 [facility] Sodium Chloride 0.9% (Bolus) IV 1000 mL 1,000 mL, Rate : 1,000 ml/hr, Infuse over: 1 hr, Route: IV, Total Volume: 1,000, Priority: STAT , Start date: 06/23/13 0:13:00, Duration: 1 doses or times, Stop date: 06/23/13 1:12:00, Bolus Dose
Bolus Dose IV No Longer Active [place] 06/23/2013 [facility] Allergies, Adverse Reactions, Alerts Substance Category Reaction Severity Reaction type Status Date Reported Comments Source N.K.D.A. Adverse Reaction Info Not Available Adverse Reaction Active 01/11/2018 [facility] DOUGLASS Assertion Drug allergy Active [facility] Immunizations Immunization Date Given Site Status Last Updated Comments Source pneumococcal 23-valent vaccine 01/03/2017 Left deltoid completed [place] [facility], CALIN Chávez,[facility] Results Order Name Results Value Reference Range Date Interpretation Comments Source Brain w/wo contrast MRI Brain w/wo contrast MRI EXAM: MRI BRAIN WITHOUT AND WITH CONTRAST DATE: 02/09/2018 INDICATION: 42 years old Female patient with history of - D32.9 Benign neoplasm of meninges, unspecified. COMPARISON: MRI brain 09/25/2017 TECHNIQUE: Multiplanar, multisequence non-contrast MRI images of the brain. Multiplanar imaging is subsequently obtained following intravenous gadolinium contrast. FINDINGS: Evolving postoperative changes of the right pterional craniectomy for debulking of the right paraclinoid meningioma. A resection cavity is again identified in the right frontotemporal lobes. Interval resolution of the linear enhancement along the margins of the resection cavity seen in the prior exam compatible with resolved postoperative changes. Residual enhancing tissue is again identified in the right cavernous sinus and encasing the cavernous and supraclinoid right internal carotid artery, unchanged compared to prior exam. Small residual tumor is again identified in the right prepontine cistern, unchanged. FLAIR hyperintensity is again identified surrounding the resection cavity in the right frontal and temporal lobes, unchanged. No significant mass effect or midline shift is present. Passive dilatation of the right lateral ventricle is again identified. The ventricles are unchanged in size. Small intrinsic T1 hyperintense extra axial fluid in the craniectomy site compatible with hemorrhagic fluid. No focal brain parenchymal diffusion restriction is identified. No acute intracranial hemorrhage is identified. Hemosiderin deposition is seen along the margins of the resection cavity. No additional brain parenchymal enhancing lesion is identified. The paranasal sinuses are clear. Trace right mastoid effusion is identified. Major intracranial vascular flow voids are preserved. IMPRESSION: 1. Evolving postoperative changes of the debulking of the right paraclinoid/ supraclinoid meningioma, as detailed above. Residual tumor is again identified along the right clinoid process, right cavernous sinus, encasing the supraclinoid right ICA and along the right aspect of the prepontine cistern, unchanged. 2. Hemorrhagic fluid and thick dural enhancement overlying the right frontotemporal lobes, postoperative, not significantly changed. 02/09/2018 - - Read by: Armaan Oneal MD Dictated Date/time: 02/10/18 08:36 Electronically Signed by: Armaan Oneal MD 02/10/18 08 :54 FINAL REPORT [facility] CHEM PANEL eGFR 123 mL/min/ 1.73m2 10/08/2017 Result Comment: The eGFR is calculated using the CKD-EPI formula. In most young, healthy individuals the eGFR will be >90 mL/min/1.73m2. The eGFR declines with age. An eGFR of 60-89 may be normal in some populations, particularly the elderly, for whom the CKD- EPI formula has not been extensively validated. Use of the eGFR is not recommended in the following populations: Individuals with unstable creatinine concentrations, including patients and those with serious co-morbid conditions. Patients with extremes in muscle mass or diet. The data above are obtained from the National Kid[employer] Disease Education Program ( NKDEP) which additionally recommends that when the eGFR is used in patients with extremes of body mass index for purposes of drug dosing, the eGFR should be multiplied by the estimated BMI. [facility] CHEM PANEL POC Creatinine 0.7 mg/dL 0.5 - 1.4 2016 [facility] Brain w/wo contrast MRI Brain w/wo contrast MRI EXAM: Brain w/wo contrast MRI DATE: 09/25/2017 3:57 PM [employer] INDICATION: - STEALTH PROTOCOL COMPARISON: MRI 06/11/2017 TECHNIQUE: Multiplanar multisequence images of the ring were obtained before and after the intravenous administration of 20 cc Dotarem DISCUSSION: Postoperative changes of a right frontal temporal craniotomy. There has been interval debulking of the suprasellar component of the large central skull base meningioma on the right side. Residual tumor is present in the right cavernous sinus encasing the right DENNIS extending superiorly into the right paraclinoid region, displacing posteriorly the supraclinoid right ICA and proximal right MCA stem. There is tumor in the prepontine cistern on the right side. Interval removal of the tumor involving the right optic canal. Evaluation of the prechiasmatic right optic nerve is limited due slice thickness. Residual tumor measures approximately 18 x 29 mm. There is postoperative encephalomalacia lateral to the head of the right caudate nucleus. Foci of thickened dural enhancement along the roof of the right orbit and right fovea ethmoidalis are compatible with small meningiomas. Thickened dural enhancement deep to the craniotomy is present. Small amount of blood is present at the operative bed. No mass effect. No hydrocephalus or midline shift. No restricted diffusion. IMPRESSION: Postoperative changes following debulking of the large central skull base meningioma with residual tumor in the right cavernous sinus and supraclinoid region encasing the right ICA and proximal right MCA stem. There is also residual tumor in the prepontine cistern on the right side. 09/25/2017 - - Read by: Adriana Quinonez MD Dictated Date/time: 09/25/17 17:14 Electronically Signed by: Adriana Quinonez MD 09/25/17 17 :44 FINAL REPORT [facility] Ch[facility] BACTERIAL - SEROLOGY MRSA by PCR Negative (08/18/17 8:58 AM) 2016 [facility] ELECTROLYTES Potassium Lvl 4.3 meq/L 3.5 - 5.1 2016 [facility] CARDIAC ENZYMES Total CK 1299 unit/L 12 - 191 2016 [facility] CHEM PANEL Phosphorus 3.1 mg/ dL 2.5 - 4.5 08/18/2017 [facility] CHEM PANEL Magnesium Lvl 1.8 mg/dL 1.8 - 2.4 08/18/2017 [facility] CHEM PANEL eGFR 84 mL/min/ 1.73m2 08/18/2017 Result Comment: The eGFR is calculated using the CKD-EPI formula. In most young, healthy individuals the eGFR will be >90 mL/min/1.73m2. The eGFR declines with age. An eGFR of 60-89 may be normal in some populations, particularly the elderly, for whom the CKD- EPI formula has not been extensively validated. Use of the eGFR is not recommended in the following populations: Individuals with unstable creatinine concentrations, including patients and those with serious co-morbid conditions. Patients with extremes in muscle mass or diet. The data above are obtained from the National Kidney Disease Education Program ( NKDEP) which additionally recommends that when the eGFR is used in patients with extremes of body mass index for purposes of drug dosing, the eGFR should be multiplied by the estimated BMI. [facility] CHEM PANEL Glucose Lvl 134 mg /dL 70 - 99 08/18/2017 [facility] CHEM PANEL BUN 5 mg/dL 7 - 22 08/18/2017 [facility] CHEM PANEL Chloride Lvl 104 meq/L 95 - 109 08/18/2017 [facility] CHEM PANEL Potassium Lvl 3.4 meq/L 3.5 - 5.1 08/18/2017 [facility] CHEM PANEL Calcium Lvl 8.4 mg /dL 8.5 - 10.5 08/18/2017 [facility] CHEM PANEL CO2 22 meq/L 24 - 32 08/18/2017 [facility] CHEM PANEL Sodium Lvl 140 meq /L 135 - 145 08/18/2017 [facility] CHEM PANEL Creatinine Lvl 0.96 mg/dL 0.50 - 1.40 2016 [facility] CHEM PANEL AGAP 17.4 meq/L 10.0 - 20.0 08/18/2017 [facility] HEMATOLOGY PTT 30.8 s 22.9 - 35.8 08/18/2017 [facility] HEMATOLOGY PT 14.6 s 12.0 - 14.7 08/18/2017 [facility] HEMATOLOGY INR 1.12 0.85 - 1.17 08/18/2017 [facility] HEMATOLOGY Hgb 10.6 g/dL 12.0 - 16.0 08/18/2017 [facility] HEMATOLOGY WBC 15.1 K/CMM 3.7 - 10.4 08/18/2017 [facility] HEMATOLOGY RBC 3.72 M/CMM 4.20 - 5.40 08/18/2017 [facility] HEMATOLOGY MCHC 33.3 g/dL 32.0 - 36.0 08/18/2017 [facility] HEMATOLOGY RDW 14.4 % 11.5 - 14.5 08/18/2017 [facility] HEMATOLOGY MCV 85.7 fL 80.0 - 98.0 08/18/2017 [facility] HEMATOLOGY MCH 28.5 pg 27.0 - 31.0 08/18/2017 [facility] HEMATOLOGY Hct 31.9 % 36.0 - 48.0 08/18/2017 [facility] HEMATOLOGY MPV 8.2 fL 7.4 - 10.4 08/18/2017 [facility] HEMATOLOGY Platelet 285 K/ CMM 133 - 450 08/18/2017 [facility] HEMATOLOGY Segs 92.1 % 45.0 - 75.0 08/18/2017 [facility] HEMATOLOGY Lymphocytes 5.5 % 20.0 - 40.0 08/18/2017 [facility] HEMATOLOGY Monocytes 2.3 % 2.0 - 12.0 08/18/2017 [facility] HEMATOLOGY Basophils 0.1 % 0.0 - 1.0 08/18/2017 [facility] HEMATOLOGY Monocytes # 0.3 K/ CMM 0.0 - 0.8 08/18/2017 [facility] HEMATOLOGY Segs-Bands # 13.9 K/CMM 1.5 - 8.1 08/18/2017 [facility] HEMATOLOGY Lymphocytes # 0.8 K/CMM 1.0 - 5.5 08/18/2017 [facility] PARATHYROID PROFILE Ca Ion WB 1.09 mMol/L 1.05 - 1.25 [facility] PARATHYROID PROFILE Ca Norm WB 1.09 mMol/L 1.05 - 1.25 [facility] Chest 1view DX Chest 1view DX EXAM: XR CHEST 1 VIEW DATE: 08/18/2017 3:00 AM CDT INDICATION: - follow up COMPARISON: Chest radiograph 08/17/2017 TECHNIQUE: AP chest FINDINGS: Lines, tubes and hardware: None. Lungs and pleura: The lung volumes are diminished. The nodular opacity overlying the right midlung seen on the prior study is not clearly identified on this study, likely represented a pulmonary vessel. Mild bibasilar atelectasis is present. The costophrenic sulci are sharp. No definite pneumothorax is seen within the limitations of this semierect radiograph. Heart and mediastinum: The cardiomediastinal silhouette is stable. Bones: The osseous structures are stable. IMPRESSION: 1. No acute cardiopulmonary abnormality. 08/18/2017 - - This report was dictated by a Cell Reliner/Fellow. I have personally reviewed the images as well as the Resident's interpretation and agree with the findings. Read by: Oj Patterson (Fellow) Resident: Oj Patterson (Fellow) Dictated Date/time: 08/18/17 09:03 Electronically Signed by: Rodrigo Aguilera MD 08/18/17 09 :14 FINAL REPORT [facility] CARDIAC ENZYMES Total CK 1114 unit/L 12 - 191 2016 [facility] CARDIAC ENZYMES Troponin-I null 0.00 - 0.40 08/18/2017 [facility] CARDIAC ENZYMES CK MB Index 0.5 0.0 - 2.5 08/18/2017 [facility] CARDIAC ENZYMES CK MB 6.0 ng/ mL 0.5 - 3.6 08/18/2017 [facility] HEMATOLOGY PTT 28.6 s 22.9 - 35.8 08/18/2017 [facility] HEMATOLOGY PT 13.9 s 12.0 - 14.7 08/18/2017 [facility] HEMATOLOGY INR 1.05 0.85 - 1.17 08/18/2017 [facility] CHEM PANEL Phosphorus 2.5 mg/ dL 2.5 - 4.5 08/17/2017 [facility] CHEM PANEL Magnesium Lvl 1.7 mg/dL 1.8 - 2.4 08/17/2017 [facility] ELECTROLYTES AGAP 11.1 meq/L 10.0 - 20.0 08/17/2017 [facility] ELECTROLYTES eGFR 89 mL/min/ 1.73m2 08/17/2017 Result Comment: The eGFR is calculated using the CKD-EPI formula. In most young, healthy individuals the eGFR will be >90 mL/min/1.73m2. The eGFR declines with age. An eGFR of 60-89 may be normal in some populations, particularly the elderly, for whom the CKD- EPI formula has not been extensively validated. Use of the eGFR is not recommended in the following populations: Individuals with unstable creatinine concentrations, including patients and those with serious co-morbid conditions. Patients with extremes in muscle mass or diet. The data above are obtained from the National Kidney Disease Education Program ( NKDEP) which additionally recommends that when the eGFR is used in patients with extremes of body mass index for purposes of drug dosing, the eGFR should be multiplied by the estimated BMI. [facility] ELECTROLYTES Potassium Lvl 4.1 meq/L 3.5 - 5.1 2016 [facility] ELECTROLYTES Sodium Lvl 139 meq/L 135 - 145 08/17/2017 [facility] ELECTROLYTES CO2 23 meq/L 24 - 32 08/17/2017 [facility] ELECTROLYTES Chloride Lvl 109 meq/L 95 - 109 2016 [facility] ELECTROLYTES Calcium Lvl 7.8 mg/dL 8.5 - 10.5 08/17/2017 [facility] ELECTROLYTES Creatinine Lvl 0.91 mg/dL 0.50 - 1.40 2016 [facility] ELECTROLYTES Glucose Lvl 143 mg/dL 70 - 99 08/17/2017 [facility] ELECTROLYTES BUN 6 mg/dL 7 - 22 08/17/2017 [facility] HEMATOLOGY MCHC 33.1 g/dL 32.0 - 36.0 08/17/2017 [facility] HEMATOLOGY RDW 14.7 % 11.5 - 14.5 08/17/2017 [facility] HEMATOLOGY Platelet 247 K/ CMM 133 - 450 08/17/2017 [facility] HEMATOLOGY MPV 7.7 fL 7.4 - 10.4 08/17/2017 [facility] HEMATOLOGY MCV 86.6 fL 80.0 - 98.0 08/17/2017 [facility] HEMATOLOGY MCH 28.6 pg 27.0 - 31.0 08/17/2017 [facility] HEMATOLOGY Hgb 9.6 g/dL 12.0 - 16.0 08/17/2017 [facility] HEMATOLOGY Hct 29.1 % 36.0 - 48.0 08/17/2017 [facility] HEMATOLOGY WBC 7.5 K/CMM 3.7 - 10.4 08/17/2017 [facility] HEMATOLOGY RBC 3.37 M/CMM 4.20 - 5.40 08/17/2017 [facility] HEMATOLOGY PTT 28.6 s 22.9 - 35.8 08/17/2017 [facility] HEMATOLOGY PT 14.5 s 12.0 - 14.7 08/17/2017 [facility] HEMATOLOGY INR 1.11 0.85 - 1.17 08/17/2017 [facility] HEMATOLOGY Segs 82.1 % 45.0 - 75.0 08/17/2017 [facility] HEMATOLOGY Lymphocytes 15.5 % 20.0 - 40.0 08/17/2017 [facility] HEMATOLOGY Monocytes 2.0 % 2.0 - 12.0 08/17/2017 [facility] HEMATOLOGY Segs-Bands # 6.2 K /CMM 1.5 - 8.1 08/17/2017 [facility] HEMATOLOGY Lymphocytes # 1.2 K/CMM 1.0 - 5.5 08/17/2017 [facility] HEMATOLOGY Eosinophils 0.1 % 0.0 - 4.0 08/17/2017 [facility] HEMATOLOGY Basophils 0.3 % 0.0 - 1.0 08/17/2017 [facility] HEMATOLOGY Monocytes # 0.1 K/ CMM 0.0 - 0.8 08/17/2017 [facility] Chest 1 v for Placement DX Chest 1 v for Placement DX EXAM: XR CHEST 1 VIEW DATE: 08/17/2017 3:52 PM CDT INDICATION: Line Placement - attempted LIJ line placement unsuccessful COMPARISON: CXR 1 view 01/02/2017 TECHNIQUE: AP chest FINDINGS: Lines, tubes and hardware: None. Lungs and pleura: There is incomplete expansion of the lungs resulting in vascular crowding. The bilateral costophrenic sulci are sharp. No pneumothorax identified. There is a small nodular opacity overlying the right lower midlung. This may represent a pulmonary vessel or overlying object and is not thought to represent a nodule. Heart and mediastinum: The heart size is normal for technique. The mediastinal contours are normal. Bones: No acute bony abnormality is identified. IMPRESSION: The lungs are clear. No pneumothorax. 08/17/2017 - - This report was dictated by a Cell Reliner/Fellow. I have personally reviewed the images as well as the Resident's interpretation and agree with the findings. Read by: Sharif Paris MD Resident: Sharif Paris MD Dictated Date/time: 08/17/17 15:55 Electronically Signed by: Rodrigo Aguilera MD 08/17/17 16 :37 FINAL REPORT [facility] BLOOD BANK RESULTS ABO/Rh A POS 08/17/2017 [facility] BLOOD BANK RESULTS Antibody Scrn Negative (08/17/17 6:06 AM) 2016 [facility] CHEM PANEL eGFR 123 mL/min/ 1.73m2 08/12/2017 Result Comment: The eGFR is calculated using the CKD-EPI formula. In most young, healthy individuals the eGFR will be >90 mL/min/1.73m2. The eGFR declines with age. An eGFR of 60-89 may be normal in some populations, particularly the elderly, for whom the CKD- EPI formula has not been extensively validated. Use of the eGFR is not recommended in the following populations: Individuals with unstable creatinine concentrations, including patients and those with serious co-morbid conditions. Patients with extremes in muscle mass or diet. The data above are obtained from the National Kidney Disease Education Program ( NKDEP) which additionally recommends that when the eGFR is used in patients with extremes of body mass index for purposes of drug dosing, the eGFR should be multiplied by the estimated BMI. [facility] CHEM PANEL Calcium Lvl 8.9 mg /dL 8.5 - 10.5 08/12/2017 [facility] CHEM PANEL CO2 28 meq/L 24 - 32 08/12/2017 [facility] CHEM PANEL Chloride Lvl 104 meq/L 95 - 109 08/12/2017 [facility] CHEM PANEL Creatinine Lvl 0.69 mg/dL 0.50 - 1.40 2016 [facility] CHEM PANEL Glucose Lvl 90 mg/ dL 70 - 99 08/12/2017 [facility] CHEM PANEL Sodium Lvl 141 meq /L 135 - 145 08/12/2017 [facility] CHEM PANEL BUN 11 mg/dL 7 - 22 08/12/2017 [facility] CHEM PANEL AGAP 13.9 meq/L 10.0 - 20.0 08/12/2017 [facility] HEMATOLOGY Hct 38.7 % 36.0 - 48.0 08/12/2017 [facility] HEMATOLOGY Hgb 12.8 g/dL 12.0 - 16.0 08/12/2017 [facility] HEMATOLOGY MCV 87.3 fL 80.0 - 98.0 08/12/2017 [facility] HEMATOLOGY Platelet 313 K/ CMM 133 - 450 08/12/2017 [facility] HEMATOLOGY MPV 8.3 fL 7.4 - 10.4 08/12/2017 [facility] HEMATOLOGY RDW 14.8 % 11.5 - 14.5 08/12/2017 [facility] HEMATOLOGY MCH 28.8 pg 27.0 - 31.0 08/12/2017 [facility] HEMATOLOGY MCHC 33.0 g/dL 32.0 - 36.0 08/12/2017 [facility] HEMATOLOGY RBC 4.43 M/CMM 4.20 - 5.40 08/12/2017 [facility] HEMATOLOGY WBC 7.5 K/CMM 3.7 - 10.4 08/12/2017 [facility] HEMATOLOGY TEG Data See Note (08/12/17 1:30 PM) 2016 [facility] HEMATOLOGY Coag Index 2.1 -3.0-3.0 - 3.0 08/12/2017 [facility] HEMATOLOGY Max Amp 70.5 mm 50.0 - 70.0 08/12/2017 [facility] HEMATOLOGY Angle 71.0 degrees 53.0 - 72.0 2016 [facility] HEMATOLOGY Ly30 0.2 % 0.0 - 7.5 08/12/2017 [facility] HEMATOLOGY G-value 11.9 K d/ sc 4.5 - 11.0 08/12/2017 [facility] HEMATOLOGY K-time 1.3 min 1.0 - 3.0 08/12/2017 [facility] HEMATOLOGY R-time 5.6 min 5.0 - 10.0 08/12/2017 [facility] HEMATOLOGY TEG Interp Thrombelastograph results show increased values of MA. This finding is suggestive of platelet hypercoagulation.[id number] 08/12/2017 [facility] HEMATOLOGY Basophils # 0.1 K/ CMM 0.0 - 0.2 08/12/2017 [facility] HEMATOLOGY Lymphocytes # 3.5 K/CMM 1.0 - 5.5 08/12/2017 [facility] HEMATOLOGY Segs-Bands # 3.4 K /CMM 1.5 - 8.1 08/12/2017 [facility] HEMATOLOGY Eosinophils # 0.1 K/CMM 0.0 - 0.5 08/12/2017 [facility] HEMATOLOGY Monocytes # 0.5 K/ CMM 0.0 - 0.8 08/12/2017 [facility] HEMATOLOGY Basophils 0.8 % 0.0 - 1.0 08/12/2017 [facility] HEMATOLOGY Lymphocytes 46.0 % 20.0 - 40.0 08/12/2017 [facility] HEMATOLOGY Eosinophils 0.8 % 0.0 - 4.0 08/12/2017 [facility] HEMATOLOGY Monocytes 6.7 % 2.0 - 12.0 08/12/2017 [facility] HEMATOLOGY Segs 45.7 % 45.0 - 75.0 08/12/2017 [facility] HEMATOLOGY INR 0.93 0.85 - 1.17 06/11/2017 [facility] HEMATOLOGY PT 12.7 s 12.0 - 14.7 06/11/2017 [facility] HEMATOLOGY PTT 31.5 s 22.9 - 35.8 06/11/2017 [facility] HEMATOLOGY Angle Rapid 81 degrees 64 - 80 06/11/2017 [facility] HEMATOLOGY Max Amplitude Rapid 68 mm 52 - 71 06/11/2017 [facility] HEMATOLOGY G-value Rapid 10.4 K d/sc 5.0 - 11.6 2016 [facility] HEMATOLOGY ACT (TEG) Rapid 89 s 86 - 118 06/11/2017 [facility] HEMATOLOGY R-time Rapid 0.4 min 0.4 - 0.7 06/11/2017 [facility] HEMATOLOGY K-time Rapid 0.8 min 0.6 - 2.3 06/11/2017 [facility] HEMATOLOGY [place] Rapid 0.3 min 06/11/2017 [facility] HEMATOLOGY Estimated % Lysis Rapid 0.3 % 0.0 - 7.5 2016 [facility] Brain w/wo contrast MRI Brain w/wo contrast MRI EXAM: MRI BRAIN WITH AND WITHOUT CONTRAST EXAM: MRI BRAIN WITH CONTRAST, [facility] PR[facility] DATE: 06/11/2017 12:16 AM CDT INDICATION: Right meningioma clinoidal, vision loss COMPARISON: MRI brain 01/02/[address] brain 06/23/2013 TECHNIQUE: Multiplanar, multisequence non-contrast MRI images of the brain. Multiplanar imaging is subsequently obtained following intravenous gadolinium contrast. Thin section postcontrast T1-weighted images were obtained through the brain as per standard [facility] protocol IV contrast: 18 mL MultiHance FINDINGS: There is a 2.9 x 2.1 cm extra-axial suprasellar/clinoidal mass which is slightly increased when compared to the MRI brain from 01/02/2017 where it measured 2.6 x 2 on a similar image. The mass is involves the bone of the lesser wing of the sphenoid and has components on either side including involvement of the orbital apex. Vasogenic edema is seen in the portion of the adjacent parenchyma. There is persistent involvement of the cavernous sinus (series 6, image 14) and the mass is contiguous with the sella. The mass engulfs the prechiasmatic right optic nerve and displaces the left optic nerve. Postsurgical changes related to right frontal craniotomy from prior partial resection. Stable defect in the right orbital roof and right frontal encephalocele/gliosis. Dural thickening and enhancement underlying the right craniotomy defect is stable when compared to the 01/02/2017 exam and likely reactive. The appearance of the remainder of the brain parenchyma and associated postoperative changes are stable. No restricted diffusion to suggest acute ischemia. No acute intracranial hemorrhage. No ventriculomegaly. The visible paranasal sinuses and skull base are unremarkable. IMPRESSION: 1. 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 2. Dural thickening and enhancement underlying the right craniotomy defect is stable when compared to the 01/02/2017 exam and likely postoperative. 3. Images are adequate for localization purpose. 06/11/2017 - - This report was dictated by a Cell Reliner/Fellow. I have personally reviewed the images as well as the Resident's interpretation and agree with the findings. Read by: Stevie Portillo MD Resident: Stevie Portillo MD Dictated Date/time: 06/11/17 08:36 Electronically Signed by: Piotr Dangelo MD 06/11/17 11 :19 FINAL REPORT [facility] Brain w contrast MRI [facility] Brain w contrast MRI [facility] EXAM: MRI BRAIN WITH AND WITHOUT CONTRAST EXAM: MRI BRAIN WITH CONTRAST, [facility] PROT[facility] DATE: 06/11/2017 12:16 AM CDT INDICATION: Right meningioma clinoidal, vision loss COMPARISON: MRI brain 01/02/[address] brain 06/23/2013 TECHNIQUE: Multiplanar, multisequence non-contrast MRI images of the brain. Multiplanar imaging is subsequently obtained following intravenous gadolinium contrast. Thin section postcontrast T1-weighted images were obtained through the brain as per standard [employer] protocol IV contrast: 18 mL MultiHance FINDINGS: There is a 2.9 x 2.1 cm extra-axial suprasellar/clinoidal mass which is slightly increased when compared to the MRI brain from 01/02/2017 where it measured 2.6 x 2 on a similar image. The mass is involves the bone of the lesser wing of the sphenoid and has components on either side including involvement of the orbital apex. Vasogenic edema is seen in the portion of the adjacent parenchyma. There is persistent involvement of the cavernous sinus (series 6, image 14) and the mass is contiguous with the sella. The mass engulfs the prechiasmatic right optic nerve and displaces the left optic nerve. Postsurgical changes related to right frontal craniotomy from prior partial resection. Stable defect in the right orbital roof and right frontal encephalocele/gliosis. Dural thickening and enhancement underlying the right craniotomy defect is stable when compared to the 01/02/2017 exam and likely reactive. The appearance of the remainder of the brain parenchyma and associated postoperative changes are stable. No restricted diffusion to suggest acute ischemia. No acute intracranial hemorrhage. No ventriculomegaly. The visible paranasal sinuses and skull base are unremarkable. IMPRESSION: 1. 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 2. Dural thickening and enhancement underlying the right craniotomy defect is stable when compared to the 01/02/2017 exam and likely postoperative. 3. Images are adequate for localization purpose. 06/11/2017 - - This report was dictated by a Cell Reliner/Fellow. I have personally reviewed the images as well as the Resident's interpretation and agree with the findings. Read by: Stevie Portillo MD Resident: Stevie Portillo MD Dictated Date/time: 06/11/17 08:36 Electronically Signed by: Piotr Dangelo MD 06/11/17 11 :19 FINAL REPORT [facility] ELECTROLYTES Potassium Lvl 4.6 meq/L 3.5 - 5.1 2016 [facility] ELECTROLYTES Chloride Lvl 104 meq/L 95 - 109 2016 [facility] ELECTROLYTES Calcium Lvl 8.8 mg/dL 8.5 - 10.5 06/11/2017 [facility] ELECTROLYTES CO2 27 meq/L 24 - 32 06/11/2017 [facility] ELECTROLYTES eGFR 93 mL/min/ 1.73m2 06/11/2017 Result Comment: The eGFR is calculated using the CKD-EPI formula. In most young, healthy individuals the eGFR will be >90 mL/min/1.73m2. The eGFR declines with age. An eGFR of 60-89 may be normal in some populations, particularly the elderly, for whom the CKD- EPI formula has not been extensively validated. Use of the eGFR is not recommended in the following populations: Individuals with unstable creatinine concentrations, including patients and those with serious co-morbid conditions. Patients with extremes in muscle mass or diet. The data above are obtained from the National Kidney Disease Education Program ( NKDEP) which additionally recommends that when the eGFR is used in patients with extremes of body mass index for purposes of drug dosing, the eGFR should be multiplied by the estimated BMI. [facility] ELECTROLYTES Creatinine Lvl 0.88 mg/dL 0.50 - 1.40 2016 [facility] ELECTROLYTES BUN 13 mg/dL 7 - 22 06/11/2017 [facility] ELECTROLYTES Glucose Lvl 100 mg/dL 70 - 99 06/11/2017 [facility] ELECTROLYTES Sodium Lvl 139 meq/L 135 - 145 06/11/2017 [facility] ELECTROLYTES AGAP 12.6 meq/L 10.0 - 20.0 06/11/2017 [facility] HEMATOLOGY Segs 47.3 % 45.0 - 75.0 06/11/2017 [facility] HEMATOLOGY Lymphocytes 43.1 % 20.0 - 40.0 06/11/2017 [facility] HEMATOLOGY Lymphocytes # 2.7 K/CMM 1.0 - 5.5 06/11/2017 [facility] HEMATOLOGY Eosinophils 1.3 % 0.0 - 4.0 06/11/2017 [facility] HEMATOLOGY Basophils 0.7 % 0.0 - 1.0 06/11/2017 [facility] HEMATOLOGY Segs-Bands # 3.0 K /CMM 1.5 - 8.1 06/11/2017 [facility] HEMATOLOGY Monocytes 7.6 % 2.0 - 12.0 06/11/2017 [facility] HEMATOLOGY Monocytes # 0.5 K/ CMM 0.0 - 0.8 06/11/2017 [facility] HEMATOLOGY Eosinophils # 0.1 K/CMM 0.0 - 0.5 06/11/2017 [facility] HEMATOLOGY PTT 28.4 s 22.9 - 35.8 06/11/2017 [facility] HEMATOLOGY PT 12.3 s 12.0 - 14.7 06/11/2017 [facility] HEMATOLOGY INR 0.90 0.85 - 1.17 06/11/2017 [facility] HEMATOLOGY MPV 8.0 fL 7.4 - 10.4 06/11/2017 [facility] HEMATOLOGY Hgb 13.1 g/dL 12.0 - 16.0 06/11/2017 [facility] HEMATOLOGY Hct 39.6 % 36.0 - 48.0 06/11/2017 [facility] HEMATOLOGY MCH 28.4 pg 27.0 - 31.0 06/11/2017 [facility] HEMATOLOGY MCV 85.7 fL 80.0 - 98.0 06/11/2017 [facility] HEMATOLOGY MCHC 33.1 g/dL 32.0 - 36.0 06/11/2017 [facility] [facility] HEMATOLOGY Platelet 294 K/ CMM 133 - 450 06/11/2017 [facility] HEMATOLOGY RDW 13.7 % 11.5 - 14.5 06/11/2017 [facility] HEMATOLOGY RBC 4.62 M/CMM 4.20 - 5.40 06/11/2017 [facility] HEMATOLOGY WBC 6.3 K/CMM 3.7 - 10.4 06/11/2017 [facility] Brain wo contrast CT Brain wo contrast CT EXAM: CT BRAIN WITHOUT CONTRAST DATE: 06/10/2017 INDICATION: Dizziness COMPARISON: Brain CT and MRI dated 01/02/2017 TECHNIQUE: Routine axial images of the brain were obtained. IV contrast: None DISCUSSION: There is no acute intracerebral hemorrhage or recent ischemic change. The ventricles are patent. Postsurgical changes are again shown, consistent with prior right-sided craniotomy. Previously described sellar/suprasellar mass invading the right cavernous sinus is again demonstrated. The overall size and appearance of the lesion are similar in comparison with the reference studies. Right anterior frontal in cephalocele is again shown, unchanged. IMPRESSION: No acute intracranial abnormality Sellar/suprasellar mass invading the right cavernous sinus is again demonstrated. Stable right anterior frontal and cephalocele and postsurgical changes 06/10/2017 - - This report was dictated by a Cell Reliner/Fellow. I have personally reviewed the images as well as the Resident's interpretation and agree with the findings. Read by: Marcela Alarcon MD Resident: Marcela Alarcon MD Dictated Date/time: 06/10/17 20:21 Electronically Signed by: Vitaliy Valera MD 06/10/17 20 :53 FINAL REPORT [facility] Ext Upper Venous Doppler Bilat US Ext Upper Venous Doppler Bilat US EXAM: US BILATERAL UPPER EXTREMITY VENOUS DOPPLER EXAM: US BILATERAL LOWER EXTREMITY VENOUS DOPPLER DATE: 05/04/2017 10:42 AM CDT INDICATION: I82.90 Acute embolism and thrombosis of unspecified vein - NO ADDITIONAL INFORMATION: None. COMPARISON: Deep vein thrombosis ultrasound 02/03/2017 TECHNIQUE: Multiplanar grayscale, color Doppler and spectral Doppler ultrasound of the bilateral upper and lower extremity veins. FINDINGS: Right Upper Extremity Veins: Internal Jugular: Patent. Subclavian: Patent. Axillary: Patent. Brachial: Patent. Basilic: Patent. Cephalic: Not visualized. Left Upper Extremity Veins: Internal Jugular: Patent and fully compressible. Echogenic focus in the left internal jugular vein felt to be artifactual (image 51). Subclavian: Patent. Axillary: Patent. Brachial: Patent. Basilic: Patent. Cephalic: Patent. Right Thigh Veins: Common Femoral: Patent. Femoral (SFV): Patent. Popliteal: Patent. Proximal Greater Saphenous: Patent. Deep Femoral Veins: Patent. Left Thigh Veins: Common Femoral: Patent. Femoral (SFV): Patent. Popliteal: Patent. Proximal Greater Saphenous: Patent. Deep Femoral Veins: Patent. Other: None. IMPRESSION: No deep venous thrombosis (DVT) in the upper or lower extremity. Echogenic focus in the left internal jugular vein is felt to be artifactual. However, recommend correlation with physical exam in this area for any pain or swelling. 05/04/2017 - - Read by: Jason Reaves MD Dictated Date/time: 05/04/17 13:54 Electronically Signed by: Jason Reaves MD 05/04/17 14 :08 FINAL REPORT [facility] Ext Lower Venous Doppler Bilat US Ext Lower Venous Doppler Bilat US EXAM: US BILATERAL UPPER EXTREMITY VENOUS DOPPLER EXAM: US BILATERAL LOWER EXTREMITY VENOUS DOPPLER DATE: 05/04/2017 10:42 AM CDT INDICATION: I82.90 Acute embolism and thrombosis of unspecified vein - NO ADDITIONAL INFORMATION: None. COMPARISON: Deep vein thrombosis ultrasound 02/03/2017 TECHNIQUE: Multiplanar grayscale, color Doppler and spectral Doppler ultrasound of the bilateral upper and lower extremity veins. FINDINGS: Right Upper Extremity Veins: Internal Jugular: Patent. Subclavian: Patent. Axillary: Patent. Brachial: Patent. Basilic: Patent. Cephalic: Not visualized. Left Upper Extremity Veins: Internal Jugular: Patent and fully compressible. Echogenic focus in the left internal jugular vein felt to be artifactual (image 51). Subclavian: Patent. Axillary: Patent. Brachial: Patent. Basilic: Patent. Cephalic: Patent. Right Thigh Veins: Common Femoral: Patent. Femoral (SFV): Patent. Popliteal: Patent. Proximal Greater Saphenous: Patent. Deep Femoral Veins: Patent. Left Thigh Veins: Common Femoral: Patent. Femoral (SFV): Patent. Popliteal: Patent. Proximal Greater Saphenous: Patent. Deep Femoral Veins: Patent. Other: None. IMPRESSION: No deep venous thrombosis (DVT) in the upper or lower extremity. Echogenic focus in the left internal jugular vein is felt to be artifactual. However, recommend correlation with physical exam in this area for any pain or swelling. 05/04/2017 - - Read by: Jason Reaves MD Dictated Date/time: 05/04/17 13:54 Electronically Signed by: Jason Reaves MD 05/04/17 14 :08 FINAL REPORT [facility] ANEMIA STUDY Vitamin B12 Lvl 547 pg/mL 254 - 1320 2016 [facility] IMMUNOLOGY C-REACTIVE PROTEIN 10.7 mg/L <=2.9 mg/L 2016 [facility] IMMUNOLOGY Treponemal Scr Non Reactive *NA* (02/03/17 9:15 PM) Non Reactive 02/04/2017 [facility] IMMUNOLOGY C4 Complement 31 mg/dL 16 - 47 02/04/2017 [facility] IMMUNOLOGY C3 Complement 158 mg/dL 88 - 201 02/04/2017 [facility] IMMUNOLOGY Homocyst Tot 12.0 umol/L 3.7 - 13.9 02/04/2017 [facility] IMMUNOLOGY HIV 1/2 Ab Negative *NA* (02/03/17 9:15 PM) Negative 02/04/2017 [facility] HEMATOLOGY dRVV Ratio 0.79 <=1.20 02/04/2017 [facility] HEMATOLOGY Hex Phos N Negative (02/03/17 9:14 PM) Negative 02/04/2017 [facility] HEMATOLOGY Lup Interp Negative for lupus anticoagulant with all tests performed (dRVVT, and hexagonal phospholipid neutralization). CPT: 75884 02/04/2017 [facility] HEMATOLOGY Sed Rate 4 mm/h 0 - 20 02/04/2017 [facility] HEMATOLOGY F2 Mutation PCR Negative (02/03/17 9:14 PM) 2016 [facility] HEMATOLOGY F2 Mut Interp FACTOR II PT: NegativeINTERPRETATION:Molecular analysis for the Factor II ( Prothrombin) [id number] mutation wasnegative. Other causes of elevated prothrombin levels and hereditary formsof venous thrombosis are not ruled out. Final diagnosis requires correlationwith clinical history and other pertinent laboratory findings.Where appropriate, medical consultation and genetic counseling should beoffered to inform and explain the risk implications and genetic implicationsof these test results.ASSAY LIMITATIONS:The assay uses the FDA-cleared Veronica Factor II (Prothrombin) [id number] IVD(Polymerase chain reaction/ FRET detection)kit, [employer] LC Instrumentand the Veronica LightCycler 1.2 Instrument. A 165-bp fragment of Factor IIgene(FII) containing the Factor II [id number] sequence is amplified in theassay. The assay is designed to detect the [id number] mutation only. Othercauses of elevated prothrombin levels and hereditary forms of venousthrombosis are not ruled out. However, the melting curve analysis mayimplicate the presence of a possible rare mutation at position 22683 (Furthertesting will be recommended in the report). A minimum detection level is 198copies of Factor II per reaction. The level of agreement between the FactorII(Prothrombin) [id number] Kit and sequence analysis was 98.9%. The test resultmust be interpreted along with the patient's clinical history and revelant laboratory data. This assay has been validated by [facility]. 02/04/2017 [facility] HEMATOLOGY F5 Leiden PCR Negative (02/03/17 9:14 PM) 2016 [facility] HEMATOLOGY F5 Leiden Intrp FACTOR V LEIDEN: NegativeINTERPRETATION:Molecular analysis for the Factor V Leiden, R506Q mutation was negative.Other causes of activated protein C resistance and hereditary forms of venousthrombosis are not ruled out. Final diagnosis requires correlation withclinical history and other pertinent laboratory findings.Where appropriate, medical consultation and/or genetic counseling should beoffered to inform and explain the risk implications and genetic implicationsof these test results.ASSAY LIMITATIONS:The assay uses the FDA-cleared Veronica Factor V Leiden IVD(Poymerase chain reaction/FRET detection) kit, Veronica [employer] LC Instrument and the Veronica LightCycler 1.2 Instrument. A 222-bp fragment of Factor V gene (FV) containing the Factor V Leiden sequence is amplified in the assay. The assay is designed to detect the G 1691A mutation only. Other causes of activated protein C resistance and hereditary forms of venous thrombosis are not ruled out. However,the melting curve analysis may implicate the presence of possible rare mutations at positions 1689, 1692 and 1696. (Further testing will be recommended in the report). A minimum detection level is 202 copies of Factor V Leiden per reaction. The level of agreement between the Factor V Leiden Kit and sequence analysis was 99.4%. The test result must be interpreted along with the patient's clinical history and relevant laboratory data. This assay has been validated by [facility]. 02/04/2017 [facility] HEMATOLOGY Protein S Func 73 % 54 - 137 02/04/2017 [facility] HEMATOLOGY AT III Func 105 % 77 - 140 02/04/2017 [facility] HEMATOLOGY Protein C Func 117 % 72 - 147 02/04/2017 [facility] HEMATOLOGY Factor VIII 207 % 50 - 242 02/04/2017 [facility] IMMUNOLOGY C-ANCA Negative (02/03/17 9:14 PM) Negative 02/04/2017 [facility] IMMUNOLOGY P-ANCA Negative (02/03/17 9:14 PM) Negative 02/04/2017 [facility] IMMUNOLOGY SS-B (La) Ab null <=0.9 AI 02/04/2017 [facility] IMMUNOLOGY SS-A (Ro) Ab null <=0.9 AI 02/04/2017 [facility] IMMUNOLOGY Hgb Interp No abnormal hemoglobins are detected. This is a normal hemoglobin electrophoresis pattern.The electronic medical record has been reviewed for relevant medical information.I have personally reviewed the test results and concur with the resident's interpretation.CPT 51223-GG 02/04/2017 [facility] IMMUNOLOGY Hgb C % 0.0 % 0.0 - 0.0 02/04/2017 [facility] IMMUNOLOGY Hgb S % 0.0 % 0.0 - 0.0 02/04/2017 [facility] IMMUNOLOGY Hgb F % 0.2 % 0.0 - 1.0 02/04/2017 [facility] IMMUNOLOGY Hgb A2 % 2.7 % 2.2 - 3.2 02/04/2017 [facility] IMMUNOLOGY Hgb A % 97.1 % 95.8 - 97.8 02/04/2017 [facility] IMMUNOLOGY IRVING Negative (02/03/17 9:14 PM) Negative 02/04/2017 [facility] IMMUNOLOGY DNA Ab (DS) Negative (02/03/17 9:14 PM) Negative 02/04/2017 [facility] IMMUNOLOGY Beta2-Glycoprotein IgM 0.2 unit/mL <=19.9 unit/mL 02/04/2017 [facility] IMMUNOLOGY Beta2-Glycoprotein IgA 0.6 unit/mL <=19.9 unit/mL 02/04/2017 [facility] IMMUNOLOGY Beta2-Glycoprotein IgG null <=19.9 unit/mL 03/2017 [facility] IMMUNOLOGY Cardiolipin IgG null <=19.9 GPL 02/04/2017 [facility] IMMUNOLOGY Cardiolipin IgM 0.5 MPL-U/mL <=19.9 MPL 02/04 [facility] IMMUNOLOGY Cardiolipin IgA 1.4 APL-U/mL <=19.9 APL 02/04 [facility] CHEM PANEL Calcium Lvl 7.9 mg /dL 8.5 - 10.5 02/03/2017 [facility] CHEM PANEL Creatinine Lvl 0.69 mg/dL 0.50 - 1.40 2016 [facility] CHEM PANEL Sodium Lvl 140 meq /L 135 - 145 02/03/2017 [facility] CHEM PANEL BUN 11 mg/dL 7 - 22 02/03/2017 [facility] CHEM PANEL Glucose Lvl 88 mg/ dL 70 - 99 02/03/2017 [facility] CHEM PANEL CO2 25 meq/L 24 - 32 02/03/2017 [facility] CHEM PANEL Chloride Lvl 103 meq/L 95 - 109 02/03/2017 [facility] CHEM PANEL Potassium Lvl 3.7 meq/L 3.5 - 5.1 02/03/2017 [facility] CHEM PANEL eGFR 123 mL/min/ 1.73m2 02/03/2017 Result Comment: The eGFR is calculated using the CKD-EPI formula. In most young, healthy individuals the eGFR will be >90 mL/min/1.73m2. The eGFR declines with age. An eGFR of 60-89 may be normal in some populations, particularly the elderly, for whom the CKD- EPI formula has not been extensively validated. Use of the eGFR is not recommended in the following populations: Individuals with unstable creatinine concentrations, including patients and those with serious co-morbid conditions. Patients with extremes in muscle mass or diet. The data above are obtained from the National Kidney Disease Education Program ( NKDEP) which additionally recommends that when the eGFR is used in patients with extremes of body mass index for purposes of drug dosing, the eGFR should be multiplied by the estimated BMI. [facility] CHEM PANEL AGAP 15.7 meq/L 10.0 - 20.0 02/03/2017 [facility] HEMATOLOGY Hct 35.6 % 36.0 - 48.0 02/03/2017 [facility] HEMATOLOGY MPV 8.0 fL 7.4 - 10.4 02/03/2017 [facility] HEMATOLOGY Platelet 328 K/ CMM 133 - 450 02/03/2017 [facility] HEMATOLOGY MCHC 33.3 g/dL 32.0 - 36.0 02/03/2017 [facility] HEMATOLOGY RDW 14.2 % 11.5 - 14.5 02/03/2017 [facility] HEMATOLOGY MCH 29.2 pg 27.0 - 31.0 02/03/2017 [facility] HEMATOLOGY MCV 87.7 fL 80.0 - 98.0 02/03/2017 [facility] HEMATOLOGY Hgb 11.9 g/dL 12.0 - 16.0 02/03/2017 [facility] HEMATOLOGY RBC 4.06 M/CMM 4.20 - 5.40 02/03/2017 [facility] HEMATOLOGY WBC 8.0 K/CMM 3.7 - 10.4 02/03/2017 [facility] HEMATOLOGY INR 1.06 0.85 - 1.17 02/03/2017 [facility] HEMATOLOGY PT 14.0 s 12.0 - 14.7 02/03/2017 [facility] HEMATOLOGY PTT 29.7 s 22.9 - 35.8 02/03/2017 [facility] HEMATOLOGY Segs 42.4 % 45.0 - 75.0 02/03/2017 [facility] HEMATOLOGY Monocytes 7.9 % 2.0 - 12.0 02/03/2017 [facility] HEMATOLOGY Lymphocytes 48.4 % 20.0 - 40.0 02/03/2017 [facility] HEMATOLOGY Basophils 0.6 % 0.0 - 1.0 02/03/2017 [facility] HEMATOLOGY Eosinophils 0.7 % 0.0 - 4.0 02/03/2017 [facility] HEMATOLOGY Lymphocytes # 3.9 K/CMM 1.0 - 5.5 02/03/2017 [facility] HEMATOLOGY Segs-Bands # 3.4 K /CMM 1.5 - 8.1 02/03/2017 [facility] HEMATOLOGY Monocytes # 0.6 K/ CMM 0.0 - 0.8 02/03/2017 [facility] HEMATOLOGY Eosinophils # 0.1 K/CMM 0.0 - 0.5 02/03/2017 [facility] Ext Upper & Lower Venous Doppler Reynaldo US Ext Upper & Lower Venous Doppler Reynaldo US EXAM: US BILATERAL UPPER EXTREMITY VENOUS DOPPLER EXAM: US BILATERAL LOWER EXTREMITY VENOUS DOPPLER DATE: 02/03/2017 at 1630 INDICATION: Evaluate for DVT TECHNIQUE: Multiplanar grayscale, color Doppler and spectral Doppler ultrasound of the bilateral upper and lower extremity veins. FINDINGS: Right Upper Extremity Veins: Internal Jugular: An occlusive deep venous thrombus is seen in the proximal portion. The distal portion is patent. Subclavian: An occlusive deep venous thrombosis in the proximal portion. The distal portion is patent. Axillary: Patent. Brachial: Patent. Basilic: Patent. Cephalic: Patent. Left Upper Extremity Veins: Internal Jugular: Patent. Subclavian: Patent. Axillary: Patent. Brachial: Patent. Basilic: Patent. Cephalic: Patent. Right Thigh Veins: Common Femoral: Patent. Femoral (SFV): Patent. Popliteal: Patent. Proximal Greater Saphenous: Patent. Proximal Deep Femoral: Patent. Left Thigh Veins: Common Femoral: Patent. Femoral (SFV): Patent. Popliteal: Patent. Proximal Greater Saphenous: Patent. Proximal Deep Femoral: Patent. Other: None. IMPRESSION: 1. Occlusive deep venous thrombosis (DVT) in the proximal right internal jugular and subclavian veins. 2. No deep venous thrombosis (DVT) in the imaged left upper or bilateral lower extremity veins. Dr. Gross was notified of the occlusive DVT in the proximal right IJ vein by Dr. Nabor Grissom on February 03, [address] Gross was notified of the updated finding of the occlusive DVT in the proximal right subclavian vein on February 04, 2017 at 0823 hours. 02/03/2017 - - This report was dictated by a Cell Reliner/Fellow. I have personally reviewed the images as well as the Resident's interpretation and agree with the findings. Read by: Satnam Díaz MD Resident: Satnam Díaz MD Dictated Date/time: 02/04/17 08:06 Electronically Signed by: Ricky Dia 02/04/17 13 :39 FINAL REPORT [facility] BLOOD BANK RESULTS Antibody Scrn Negative (02/03/17 6:55 AM) 2016 [facility] BLOOD BANK RESULTS ABO/Rh A POS 02/03/2017 [facility] Chest Pulmonary Embolism CTA Chest Pulmonary Embolism CTA EXAM: CTA CHEST WITH CONTRAST, pulmonary embolism protocol DATE: 02/03/2017 INDICATION: Respiratory distress. Evaluate for pulmonary embolism. COMPARISON: Outside chest radiograph dated 01/02/2017 TECHNIQUE: Volumetric CT acquisition of the chest, during pulmonary arterial phase, after intravenous contrast. Axial, sagittal, coronal, and oblique MIP reconstructions are created at the acquisition workstation. IV Contrast: 85 mL of Visipaque 320 DLP: 698 mGy-cm FINDINGS: Lines and tubes: None Heart and Mediastinum: Cardiothoracic ratio measures 11.7/25.7 cm.. Measurements and appearance of the thoracic aorta are normal. At the same level where the ascending aorta measures 3.3 cm the pulmonary trunk measures 2.7 cm. The bolus of contrast is suboptimal with most of the contrast in the superior vena cava during this examination. There is no pulmonary embolus to the segmental level. Pleura: No effusion and no pneumothorax. Lymph Nodes: There is no hilar, mediastinal, axillary or internal mammary lymphadenopathy. Lungs: There is a flat irregular opacity in the left lung apex best seen on axial image 54 and coronal images 112 -- 117 and sagittal image 164. Calcified granuloma in the right lower lobe, the residua of prior granulomatous infection. Trachea and central bronchi are unremarkable. Upper abdomen: Unremarkable. Bones and soft tissues: Unremarkable. IMPRESSION: 1. The bolus of contrast is suboptimal with most of the contrast in the superior vena cava during this examination. There is no pulmonary embolus to the segmental level. 2. There is a flat irregular opacity in the left lung apex as described above. Its appearance is nonspecific and could represent a scar or area of atelectasis. It could also represent a neoplasm or an infection. If there are any prior chest CTs for comparison they would be beneficial. If not, a follow- up chest CT in 3 months is recommended. 02/03/2017 - - Read by: Elizabeth Reyna MD Dictated Date/time: 02/03/17 11:23 Electronically Signed by: Elizabeth Reyna MD 02/03/17 11 :34 FINAL REPORT [facility] URINE CHEM U Preg Negative (01/27/17 7:03 AM) Negative 01/27/2017 [facility] Angiogram cervical artery bilateral VR Angiogram cervical artery bilateral VR PROCEDURE: 1. Diagnostic Cerebral Angiogram: 2. 3D right internal carotid artery balloon test occlusion angiography: none DATE: 01/27/2017 11:04 AM CDT INDICATION: Due to the patient oncologic history coupled with the MRA brain of the appearance of the right internal carotid artery encasement of the tumor. Cerebral angiogram with balloon test occlusion is indicated in preparation for surgical resection HISTORY: 41 years Female with a history of parasellar meningioma and previous surgical resection. Follow-up MRI brain showed evidence of tumor recurrence that extend in the right middle fossa and encase the right internal carotid artery. Dr. Brown request cerebral angiogram for further evaluation of the patency of the external carotid artery together with balloon test occlusion. ATTENDING: Ray Pratt M.D. He was present and immediately available for entire procedure, performing all critical portions. Reviewed all angiographic results. FELLOW: Ruby Carter M.D. COMPARISON: Magnetic resonance imaging 01/02/2017 PROCEDURE: Informed consent was obtained describing all the risks, benefits and alternatives of the procedure the patient was brought to the interventional suite placed in the supine position where moderate sedation was administered under the supervision of the attending. The patient was then prepped and draped in sterile fashion. The Right femoral artery was accessed using single wall micropuncture technique and a 6 Indian sheath was placed. A 5 Indian Vert catheter was coaxially advanced with a 0.035 Terumo Glidewire through the sheath into aorta arch to select the below mentioned arteries using roadmap technique. Two-dimensional cerebral angiogram runs were performed. After review of the angiography data, we proceeded to the balloon test occlusion. The left femoral artery was accessed using single wall micropuncture technique and a 6-Indian sheath was placed . Using a telescope technique a 6-Indian envInfoAssure DA guide catheter was telescoped over a long 5-Indian Vert catheter to select the right internal carotid artery. Then after and using a magnified roadmap, a 7 x 7 hyper form balloon was advanced to select the right internal carotid artery upper cervical segment. 6000 units of heparin were administered intravenously following sheath placement; additional boluses of heparin were administered at one-hour intervals. The ACT was checked to ensure that it was between 250-300. The balloon was inflated and right internal carotid artery run was performed and confirmed the complete occlusion of the right internal carotid artery. The left internal carotid artery injection was performed simultaneously conforming the crossover through a patent anterior communicating artery. After detailed neurological exam was performed frequently over a period of 20 minutes. Then after a hypotensive challenge was applied coping the map by 25% with continuous exam over a period of 30 minute. Through which the patient maintained her into neuro exam. Repeat bilateral internal carotid artery cerebral angiogram were performed , the catheter was withdrawn. Bilateral femoral artery angiogram was performed and the catheter was removed. The femoral artery sheath removed and closed by Application of Mynx closure device Post procedure neurological examination was at the patient's baseline. The patient was was then transferred to interventional holding area for post procedure care. MEDICATIONS: 6000 heparin IV 40 mg protamine IV CONTRAST: 170 cc. RADIATION DOSE: Cumulative Air KERMA Frontal: 2017 mGy Cumulative Air KERMA Lateral: 543 mGy FLUOROSCOPY TIME: 24.4 minutes TASKS: 1. Right femoral artery catheterization with 2-D angiogram run 2. Right external carotid artery selective catheterization with 2D angiogram run 3. Right Internal carotid artery selective catheterization and 2D angiogram Runs 4. Right vertebral artery selective catheterization and 2D angiogram Runs 5. Left external carotid artery selective catheterization and 2D angiogram Runs 6. Left Internal carotid artery selective catheterization and 2D angiogram Runs 7. Left vertebral artery selective catheterization and 2D angiogram Runs 8. Right internal carotid artery catheterization using a 7 x 7 hyper form balloon 9. Right internal carotid artery balloon test occlusion 10. Application of Mynx closure device FINDINGS: 1- Right common carotid artery: Right common carotid reveals normal takeoff of the internal carotid artery and external carotid artery and terminal branches. The bifurcation is smooth without irregularity or any significant evidence of atherosclerotic disease or stenosis. No early venous shunting is present. 2- Right external carotid artery: External carotid artery injection shows normal opacification of the external carotid artery and its terminal branches. The right superficial temporal artery and middle meningeal artery is missing due to previous surgical intervention There is no evidence of tumor blush, arteriovenous shunting or other abnormalities. 3- Right internal carotid artery: Right internal carotid artery injection revealed brisk opacification of the internal carotid artery (ICA), middle cerebral artery (MCA), and the anterior cerebral artery (DENNIS). There is evidence of upward displacement of the right anterior cerebral artery with narrowing of the right internal carotid artery along the ophthalmic and communicating segment most likely due to to the tumor mass effect .No aneurysm, arteriovenous malformation or fistula. Capillary and Venous phases show normal opacification without any evidence of perfusion deficits or abnormal flow obstruction. 4- Right vertebral artery: Right vertebral artery injection revealed brisk opacification of the right vertebral artery, right posterior inferior cerebellar artery, basilar trunk, bilateral anterior inferior cerebellar artery , bilateral superior cerebellar artery and bilateral posterior cerebral artery no aneurysm, arteriovenous fistula or malformation. . Capillary and Venous phases show normal opacification without any evidence of perfusion deficits or abnormal flow obstruction. 5- Left common carotid artery: Left common carotid reveals normal takeoff of the cervical internal carotid artery and external carotid artery and terminal branches. The bifurcation is smooth without irregularity or any significant evidence of atherosclerotic disease or stenosis. No early venous shunting is present. 6- Left external carotid artery: External carotid artery injection shows normal opacification of the external carotid artery and its terminal branches. There is no evidence of tumor blush, arteriovenous shunting or other abnormalities. 7- Left internal carotid artery: Left internal carotid artery injection reveals revealed brisk opacification of the internal carotid artery (ICA), middle cerebral artery (MCA), and the anterior cerebral artery (DENNIS). There is evidence of upward displacement of the left anterior cerebral artery likely due to the mass effect of the skull base tumor .No aneurysm, arteriovenous malformation or fistula. Capillary and Venous phases show normal opacification without any evidence of perfusion deficits or abnormal flow obstruction. 8- Left vertebral artery: Left vertebral artery injection reveals brisk opacification of the left vertebral artery, left posterior inferior cerebellar artery, basilar trunk, bilateral anterior inferior cerebellar artery, bilateral superior cerebellar artery and bilateral posterior cerebral artery no aneurysm, arteriovenous fistula or malformation. . Capillary and Venous phases show normal opacification without any evidence of perfusion deficits or abnormal flow obstruction. IMPRESSION: - Bilateral anterior cerebral arteries out for displacement due to the skull base tumor mass effect . - Right internal carotid artery ophthalmic segment narrowing due to the tumor encasement. - Patent anterior communicating artery with a slight delay of the right hemisphere from the left side injection . - Successful right internal carotid artery balloon test occlusion with no evidence of neurological deterioration through 30 minutes of balloon occlusion and hypotensive challenge. 01/27/2017 - - This report was dictated by a Cell Reliner/Fellow. I have personally reviewed the images as well as the Resident's interpretation and agree with the findings. Read by: Ruby Street MD Resident: Ruby Street MD Dictated Date/time: 01/27/17 13:39 Electronically Signed by: Ray Pratt MD 01/27/17 16 :42 FINAL REPORT [facility] ENDOCRINOLOGY Prolactin Lvl 9.7 ng/mL 01/02/2017 [facility] ENDOCRINOLOGY LH 2.42 mIU/mL 01/02/2017 [facility] ENDOCRINOLOGY Growth Hormone 0.1 ng/mL 0.0 - 8.0 2016 [facility] ENDOCRINOLOGY FSH 4.2 mIU/mL 01/02/2017 [facility] ENDOCRINOLOGY Cortisol 5.6 ug /dl 01/02/2017 [facility] IMMUNOLOGY IGF I 83 ng/mL 62 - 204 01/02/2017 Result Comment: Performed At: [facility] [address] [id number] Zeke Banda MD Ph:[phone] [facility] SPECIAL CHEMISTRY ACTH Lvl null 0 - 46 01/02/2017 [facility] BLOOD BANK RESULTS Antibody Scrn Negative (01/02/17 6:14 AM) 2016 [facility] BLOOD BANK RESULTS ABO/Rh A POS 01/02/2017 [facility] CHEM PANEL Lactic Acid Lvl 0.9 mMol/L 0.5 - 2.2 2016 [facility] CHEM PANEL eGFR 108 mL/min/ 1.73m2 01/02/2017 Result Comment: The eGFR is calculated using the CKD-EPI formula. In most young, healthy individuals the eGFR will be >90 mL/min/1.73m2. The eGFR declines with age. An eGFR of 60-89 may be normal in some populations, particularly the elderly, for whom the CKD- EPI formula has not been extensively validated. Use of the eGFR is not recommended in the following populations: Individuals with unstable creatinine concentrations, including patients and those with serious co-morbid conditions. Patients with extremes in muscle mass or diet. The data above are obtained from the National Kidney Disease Education Program ( NKDEP) which additionally recommends that when the eGFR is used in patients with extremes of body mass index for purposes of drug dosing, the eGFR should be multiplied by the estimated BMI. [facility] CHEM PANEL Potassium Lvl 4.4 meq/L 3.5 - 5.1 01/02/2017 [facility] CHEM PANEL BUN 9 mg/dL 7 - 22 01/02/2017 [facility] CHEM PANEL Creatinine Lvl 0.78 mg/dL 0.50 - 1.40 2016 [facility] CHEM PANEL Sodium Lvl 138 meq /L 135 - 145 01/02/2017 [facility] CHEM PANEL CO2 22 meq/L 24 - 32 01/02/2017 [facility] CHEM PANEL Chloride Lvl 107 meq/L 95 - 109 01/02/2017 [facility] CHEM PANEL Calcium Lvl 8.1 mg /dL 8.5 - 10.5 01/02/2017 [facility] CHEM PANEL Glucose Lvl 118 mg /dL 70 - 99 01/02/2017 [facility] CHEM PANEL AGAP 13.4 meq/L 10.0 - 20.0 01/02/2017 [facility] HEMATOLOGY Monocytes # 0.1 K/ CMM 0.0 - 0.8 01/02/2017 [facility] HEMATOLOGY Segs 90.3 % 45.0 - 75.0 01/02/2017 [facility] HEMATOLOGY Lymphocytes 8.9 % 20.0 - 40.0 01/02/2017 [facility] HEMATOLOGY Monocytes 0.6 % 2.0 - 12.0 01/02/2017 [facility] HEMATOLOGY Segs-Bands # 11.9 K/CMM 1.5 - 8.1 01/02/2017 [facility] HEMATOLOGY Lymphocytes # 1.2 K/CMM 1.0 - 5.5 01/02/2017 [facility] HEMATOLOGY Basophils 0.2 % 0.0 - 1.0 01/02/2017 [facility] HEMATOLOGY Platelet 275 K/ CMM 133 - 450 01/02/2017 [facility] HEMATOLOGY MPV 7.8 fL 7.4 - 10.4 01/02/2017 [facility] HEMATOLOGY Hgb 12.6 g/dL 12.0 - 16.0 01/02/2017 [facility] HEMATOLOGY Hct 38.3 % 36.0 - 48.0 01/02/2017 [facility] HEMATOLOGY WBC 13.2 K/CMM 3.7 - 10.4 01/02/2017 [facility] HEMATOLOGY MCV 87.9 fL 80.0 - 98.0 01/02/2017 [facility] HEMATOLOGY RBC 4.36 M/CMM 4.20 - 5.40 01/02/2017 [facility] HEMATOLOGY MCH 29.0 pg 27.0 - 31.0 01/02/2017 [facility] HEMATOLOGY RDW 13.5 % 11.5 - 14.5 01/02/2017 [facility] HEMATOLOGY MCHC 33.0 g/dL 32.0 - 36.0 01/02/2017 [facility] HEMATOLOGY PTT 28.0 s 22.9 - 35.8 01/02/2017 [facility] HEMATOLOGY PT 13.2 s 12.0 - 14.7 01/02/2017 [facility] HEMATOLOGY INR 0.98 0.85 - 1.17 01/02/2017 [facility] URINE AND STOOL UA Leuk Est Negative (01/02/17 6:14 AM) Negative 01/02/2017 [facility] URINE AND STOOL UA pH 5.5 5.0 - 8.0 01/02/2017 [facility] URINE AND STOOL UA Turbidity Clear (01/02/17 6:14 AM) Clear 12/2016 [facility] URINE AND STOOL UA Spec Grav 1.010 <=1.030 01/02/2017 [facility] URINE AND STOOL UA Protein Negative (01/02/17 6:14 AM) Negative 01/02/2017 [facility] URINE AND STOOL UA Glucose Negative (01/02/17 6:14 AM) Negative 01/02/2017 [facility] URINE AND STOOL UA Ketones Negative *NA* (01/02/17 6:14 AM) Negative 01/02/2017 [facility] URINE AND STOOL UA Bili Negative *NA* (01/02/17 6:14 AM) Negative 01/02/2017 [facility] URINE AND STOOL UA Blood Trace *ABN* (01/02/17 6:14 AM) Negative 01/02/2017 [facility] URINE AND STOOL UA Nitrite Negative (01/02/17 6:14 AM) Negative 01/02/2017 [facility] URINE AND STOOL UA Urobilinogen 0.2 EU/dL 0.1 - 1.0 01/02 [facility] URINE AND STOOL UA Color Yellow *NA* (01/02/17 6:14 AM) Yellow 12/2016 [facility] URINE AND STOOL UA RBC 0-2 / HPF 0 - 2 01/02/2017 [facility] URINE AND STOOL UA Bacteria None Seen (01/02/17 6:14 AM) None Seen 01/02/2017 [facility] URINE AND STOOL UA Sq Epi None Seen (01/02/17 6:14 AM) Few 2016 [facility] URINE AND STOOL UA WBC None Seen (01/02/17 6:14 AM) None Seen 01/02/2017 [facility] Brain w/wo contrast MRI Brain w/wo contrast MRI EXAM: MRI BRAIN WITH AND WITHOUT CONTRAST DATE: 01/02/2017 904 AM [employer] INDICATION: Altered level of consciousness, history of pituitary macroadenoma COMPARISON: 5brain CT same day TECHNIQUE: Multiplanar, multisequence non-contrast MRI images of the brain. Multiplanar imaging is subsequently obtained following intravenous gadolinium contrast. IV contrast: 20 mL MultiHance FINDINGS: 27 x 25 x 30 mm (transaxial by craniocaudal) avidly enhancing sellar and suprasellar mass is identified invading the right cavernous sinus. A dural tail is seen along the tuberculum sellae. The mass encases the right cavernous carotid artery with no definite focal narrowing. It has localized mass effect on the right frontal lobe with minimal parenchymal edema. The right A1 segment is displaced superiorly and posteriorly and draped over the anterior segment of the mass. There is partial encasement (less than 180 degrees) of the cavernous left internal carotid artery with no definite evidence of invasion of the left cavernous sinus. Mass is not associated with calcification on CT. The mass is inseparable from the right optic nerve and optic chiasm, as well as the prechiasmatic segment of the left optic nerve. There is posterior extension of the mass into the prepontine cistern with abutment of the basilar artery. Right optic nerve also appears smaller compared to the left. There are postsurgical changes of a right frontal craniotomy. Next There is no acute infarct, downward herniation, midline shift, or hydrocephalus. IMPRESSION: 1. 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 Postsurgical changes of a right frontal craniotomy. 2. The mass encases the flow void of the right cavernous carotid artery with no definite focal narrowing. The mass also engulfs the optic chiasm and prechiasmatic right optic nerve resulting abnormal signal and atrophy of the the right optic nerve. 3. There is also localized mass effect upon the right frontal lobe with mild amount of vasogenic edema. Right inferior frontal encephalomalacia is present. 4. A right inferior frontal encephalocele is present along the superolateral margin of the right orbit(series 1001 image 10). The comparison brain CT shows absence of the bone in this region and changes of cranioplasty. 01/02/2017 - - This report was dictated by a Cell Reliner/Fellow. I have personally reviewed the images as well as the Resident's interpretation and agree with the findings. Read by: Bruno Burgos MD Resident: Bruno Burgos MD Dictated Date/time: 01/02/17 12:14 Electronically Signed by: Armaan Oneal MD 01/02/17 13 :56 FINAL REPORT [facility] Brain wo contrast CT Brain wo contrast CT Patient Name: SUMI NIXON : 1975; Age: 40 years y/o Female MR: [id number] Study: Brain wo contrast CT 04/16/2016 1:47 PM CDT Clinical Indication: Headache with Dizziness and Giddiness; history of brain tumor. Headache onset early this morning with gradual onset intensifying throughout the day. Complains of nausea and vomiting. Comparison: CT head 11/26/2013. TECHNIQUE: CT images were obtained from the foramen magnum to the vertex without the use of intravenous contrast on a multidetector CT. Coronal and sagittal reconstructions were obtained. FINDINGS: BRAIN PARENCHYMA: Interval enlargement of and extra-axial partially calcified right suprasellar lobulated mildly dense mass is seen, now measuring approximately 2.6 x 2 x 2.5 cm, previously measuring approximately 1.9 x 1.9 cm. There is mild worsening of mass effect on the right inferior frontal lobe. Right inferior frontal lobe encephalomalacia is again seen. Mustafa-white matter interfaces are preserved. No midline shift or herniation is seen. There are no intra-axial or extra-axial hemorrhage or collection. VENTRICLES: Ventricles are unchanged in size. The basilar cisterns are patent. ORBITS, MASTOIDS AND PARANASAL SINUSES: Visualized orbits show no acute pathology. Paranasal sinuses are clear. The mastoid air cells are clear. SKULL: No fracture is identified. Right frontotemporal craniotomy changes are seen. Microplate and screw fixation of the right zygomatic arch is also identified. If there is further concern for intracranial pathology or acute stroke, MRI of the brain may be performed for complete assessment. IMPRESSION: 1. 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 SL: [id number] 04/16/2016 - - Read by: Chiquita Hebert MD Dictated Date/time: 04/16/16 14:53 Electronically Signed by: Chiquita Hebert MD 04/16/16 15 :10 FINAL REPORT [facility] Brain wo contrast CT Brain wo contrast CT Examination: CT scan of the brain without contrast. HISTORY: Blurry vision COMPARISON: CT of the brain from 06/23/2013 DLP: 895.82 TECHNIQUE: Multiple axial CT images of the brain were obtained without the administration of intravenous contrast. FINDINGS: Stable postsurgical changes of right frontotemporal craniotomy again seen. Mild encephalomalacia of the underlying right frontal lobe is again seen. Lobulated, mildly hyperdense sellar/suprasellar mass is again noted. No acute intracranial hemorrhage, mass effect, midline shift, or hydrocephalus is seen. There are no extra-axial fluid collections. The visualized paranasal sinuses and mastoid air cells are well-aerated. The optic globes and retrobulbar soft tissues are unremarkable. IMPRESSION: 1. No acute intracranial abnormality. 2. Stable postoperative changes with stable appearance of a sellar/suprasellar mass. SL: 14 11/26/2013 - - Read by: Tristan Flores Dictated Date/time: 11/26/13 15:53 Electronically Signed by: Tristan Flores MD 11/26/13 15 :55 FINAL REPORT [facility] CHEMISTRY S Preg Negative (06/23/2013 00:24:00) Negative 06/23/2013 Normal [facility] CHEMISTRY Sodium Lvl 141 meq/ L 135 - 145 06/23/2013 Normal [facility] CHEMISTRY CO2 29 meq/L 24 - 32 06/23/2013 Normal [facility] CHEMISTRY Potassium Lvl 3.8 meq/L 3.5 - 5.1 06/23/2013 Normal [facility] CHEMISTRY BUN 12 mg/dL 7 - 22 06/23/2013 Normal [facility] CHEMISTRY Glucose Lvl 82 mg/ dL 70 - 99 06/23/2013 Normal 2Interpretive Data: Adult reference range values reflect the clinical guidelines of the [place] [employer]. [facility] CHEMISTRY AGAP 10.8 meq/L 10.0 - 20.0 06/23/2013 Normal [facility] CHEMISTRY Calcium Lvl 8.4 mg/ dL 8.5 - 10.5 06/23/2013 LOW [facility] CHEMISTRY Creatinine Lvl 0.9 mg/dL 0.5 - 1.4 06/23/2013 Normal [facility] CHEMISTRY Chloride Lvl 105 meq/L 95 - 109 06/23/2013 Normal [facility] CHEMISTRY eGFR 93 mL/min/ 1.73m2 06/23/2013 NA 1Result Comment: The eGFR is calculated using the CKD-EPI formula. In most young, healthy individuals the eGFR will be >90 mL/min/1.73m2. The eGFR declines with age. An eGFR of 60-89 may be normal in some populations, particularly the elderly, for whom the CKD- EPI formula has not been extensively validated. Use of the eGFR is not recommended in the following populations: Individuals with unstable creatinine concentrations, including patients and those with serious co-morbid conditions. Patients with extremes in muscle mass or diet. The data above are obtained from the National Kidney Disease Education Program ( NKDEP) which additionally recommends that when the eGFR is used in patients with extremes of body mass index for purposes of drug dosing, the eGFR should be multiplied by the estimated BMI. [facility] HEMATOLOGY PTT 29.2 s 22.9 - 35.8 06/23/2013 Normal 4Interpretive Data: Heparin Therapeutic Range: 57 - 92 Seconds [facility] INR 0.90 0.85 - 1.17 06/23/2013 Normal 3Interpretive Data: RECOMMENDED RANGES FOR PROTIME INR: 2.0-3.0 for most medical and surgical thromboembolic states. 2.5-3.5 for artificial heart valves and recurrent embolism. INR SHOULD BE USED ONLY FOR PATIENTS ON STABLE ANTICOAGULANT THERAPY. [facility] PT 12.4 s 12.0 - 14.7 06/23/2013 Normal [facility] MPV 7.8 fL 7.4 - 10.4 06/23/2013 Normal [facility] MCHC 32.2 g/dL 32.0 - 36.0 06/23/2013 Normal [facility] Hgb 12.8 g/dL 12.0 - 16.0 06/23/2013 Normal [facility] MCH 29.4 pg 27.0 - 31.0 06/23/2013 Normal [facility] MCV 91.3 fL 81.0 - 99.0 06/23/2013 Normal [facility] RBC 4.35 M/CMM 4.20 - 5.40 06/23/2013 Normal [facility] Platelet 292 K/ CMM 133 - 450 06/23/2013 Normal [facility] RDW 13.6 % 11.5 - 14.5 06/23/2013 Normal [facility] Hct 39.7 % 36.0 - 48.0 06/23/2013 Normal [facility] WBC 7.8 K/CMM 3.7 - 10.4 06/23/2013 Normal [facility] Lymphocytes # 3.6 K/CMM 1.0 - 5.5 06/23/2013 Normal [facility] HEMATOLOGY Basophils # 0.1 K/ CMM 0.0 - 0.2 06/23/2013 Normal [facility] HEMATOLOGY Segs-Bands # 3.2 K /CMM 1.5 - 8.1 06/23/2013 Normal [facility] HEMATOLOGY Monocytes 8.6 % 2.0 - 12.0 06/23/2013 Normal [facility] HEMATOLOGY Eosinophils # 0.2 K/CMM 0.0 - 0.5 06/23/2013 Normal [facility] HEMATOLOGY Monocytes # 0.7 K/ CMM 0.0 - 0.8 06/23/2013 Normal [facility] HEMATOLOGY Eosinophils 2.3 % 0.0 - 4.0 06/23/2013 Normal [facility] HEMATOLOGY Basophils 0.7 % 0.0 - 1.0 06/23/2013 Normal [facility] HEMATOLOGY Segs 41.8 % 45.0 - 75.0 06/23/2013 LOW [facility] HEMATOLOGY Lymphocytes 46.6 % 20.0 - 40.0 06/23/2013 HI [facility] Vital Signs Vital Sign Value Date Comments Source BMI Calculated 35 2017 [facility] [place] [place] [facility] Weight 101.364 02/24/2018 [facility] [place] [place] [facility] Height 170.18 cm 02/24/2018 [facility] [place] [place] [facility] Temperature Oral (F) 98.0 F 02/24/2018 [facility] [place] [place] [facility] Heart Rate 86 02/24/2018 [facility] [place] [place] [facility] Systolic (mm Hg) 113 2017 [facility] [place] [place] [facility] Diastolic (mm Hg) 78 2017 [facility] [place] [place] [facility] Weight 226 01/11/2018 [facility] Height 67 01/11/2018 [facility] Temperature Oral (F) 98.2 F 01/11/2018 [facility] Diastolic (mm Hg) 98 2017 [facility] Systolic (mm Hg) 128 2017 [facility] Weight 102.955 12/07/2017 [facility] Systolic (mm Hg) 114 2017 [facility] Diastolic (mm Hg) 76 2017 [facility] Heart Rate 85 12/07/2017 [facility] Temperature Oral (F) 98.2 F 12/07/2017 [facility] Respitory Rate 18 2017 [facility] Heart Rate 82 11/30/2017 [facility] Temperature Oral (F) 96.9 F 11/30/2017 [facility] Respitory Rate 18 2017 [facility] Systolic (mm Hg) 113 2017 [facility] Diastolic (mm Hg) 74 2017 [facility] Weight 103.807 11/30/2017 [facility] Weight 102.727 11/23/2017 [facility] Respitory Rate 18 2017 [facility] Temperature Oral (F) 97.4 F 11/23/2017 [facility] Heart Rate 78 11/23/2017 [facility] Systolic (mm Hg) 124 2017 [facility] Diastolic (mm Hg) 74 2017 [facility] Weight 103.636 11/16/2017 [facility] Systolic (mm Hg) 118 2017 [facility] Diastolic (mm Hg) 76 2017 [facility] Temperature Oral (F) 98.0 F 11/16/2017 [facility] Heart Rate 90 11/16/2017 [facility] Weight 102.727 11/09/2017 [facility] Systolic (mm Hg) 122 2017 [facility] Diastolic (mm Hg) 83 2017 [facility] Temperature Oral (F) 98.2 F 11/09/2017 [facility] Respitory Rate 18 2017 [facility] Heart Rate 80 11/09/2017 [facility] Weight 103 11/03/2017 [facility] Systolic (mm Hg) 128 2017 [facility] Diastolic (mm Hg) 83 2017 [facility] Temperature Oral (F) 96.5 F 11/03/2017 [facility] Heart Rate 83 11/03/2017 [facility] Respitory Rate 14 2017 [facility] [facility] Temperature Oral (F) 98.3 F 09/30/2017 [facility] Respitory Rate 20 2016 [facility] Heart Rate 91 09/30/2017 [facility] Systolic (mm Hg) 124 2016 [facility] Diastolic (mm Hg) 85 2016 [facility] Height 172.72 cm 09/30/2017 [facility] BMI Calculated 34.66 2016 [facility] Weight 103.409 09/30/2017 [facility] Systolic (mm Hg) 119 2016 [facility] Diastolic (mm Hg) 86 2016 [facility] Temperature Oral (F) 92 F [facility] Temperature Oral (F) 98.0 F 08/19/2017 [facility] Systolic (mm Hg) 132 2016 [facility] Diastolic (mm Hg) 82 2016 [facility] Heart Rate 72 08/19/2017 [facility] Respitory Rate 18 2016 [facility] Systolic (mm Hg) 146 2016 [facility] Diastolic (mm Hg) 85 2016 [facility] Heart Rate 75 08/19/2017 [facility] Respitory Rate 18 2016 [facility] Temperature Oral (F) 98.2 F 08/19/2017 [facility] Heart Rate 71 08/19/2017 [facility] Temperature Oral (F) 98.1 F 08/19/2017 [facility] Systolic (mm Hg) 137 2016 [facility] Diastolic (mm Hg) 79 2016 [facility] Respitory Rate 17 2016 [facility] BMI Calculated 33.52 2016 [facility] Weight 100 08/17/2017 [facility] Height 172.72 cm 08/17/2017 [facility] BMI Calculated 33.52 2016 [facility] Weight 100 08/17/2017 [facility] Height 172.72 cm 08/12/2017 [facility] BMI Calculated 33.83 2016 [facility] Height 172.72 cm 08/12/2017 [facility] Weight 100.909 08/12/2017 [facility] Height 170.18 cm 07/05/2017 [facility] BMI Calculated 32.17 2016 [facility] Weight 93.182 07/05/2017 [facility] Temperature Oral (F) 98.3 F 07/05/2017 [facility] Systolic (mm Hg) 134 2016 [facility] Diastolic (mm Hg) 78 2016 [facility] Heart Rate 94 07/05/2017 [facility] Respitory Rate 16 2016 [facility] Respitory Rate 18 2016 [facility] Systolic (mm Hg) 136 2016 [facility] Diastolic (mm Hg) 79 2016 [facility] Temperature Oral (F) 97.9 F 06/11/2017 [facility] Systolic (mm Hg) 131 2016 [facility] Diastolic (mm Hg) 76 2016 [facility] Respitory Rate 18 2016 [facility] Temperature Oral (F) 98.1 F 06/11/2017 [facility] Systolic (mm Hg) 120 2016 [facility] Diastolic (mm Hg) 76 2016 [facility] Respitory Rate 18 2016 [facility] Temperature Oral (F) 98.3 F 06/11/2017 [facility] Heart Rate 85 06/11/2017 [facility] Height 172.72 cm 06/10/2017 [facility] BMI Calculated 31.84 2016 [facility] Weight 95 06/10/2017 [facility] Heart Rate 64 06/10/2017 [facility] Height 170.1 cm 05/20/2017 [facility] Systolic (mm Hg) 110 2016 [facility] Diastolic (mm Hg) 79 2016 [facility] Weight 100.273 05/20/2017 [facility] BMI Calculated 34.66 2016 [facility] Heart Rate 98 05/20/2017 [facility] Respitory Rate 18 2016 [facility] Temperature Oral (F) 98 F [facility] BMI Calculated 34.62 2016 [facility] Weight 100.273 02/18/2017 [facility] Height 170.18 cm 02/18/2017 [facility] Respitory Rate 18 2016 [facility] Heart Rate 85 02/18/2017 [facility] Systolic (mm Hg) 114 2016 [facility] Diastolic (mm Hg) 84 2016 [facility] Temperature Oral (F) 98.3 F 02/18/2017 [facility] Respitory Rate 18 2016 [facility] Systolic (mm Hg) 122 2016 [facility] Diastolic (mm Hg) 78 2016 [facility] Temperature Oral (F) 97.8 F 02/04/2017 [facility] Heart Rate 72 02/04/2017 [facility] Weight 102 02/04/2017 [facility] Heart Rate 67 02/04/2017 [facility] Respitory Rate 16 2016 [facility] Systolic (mm Hg) 127 2016 [facility] Diastolic (mm Hg) 79 2016 [facility] Temperature Oral (F) 98.1 F 02/04/2017 [facility] Temperature Oral (F) 98.0 F 02/04/2017 [facility] Systolic (mm Hg) 125 2016 [facility] Diastolic (mm Hg) 83 2016 [facility] Respitory Rate 16 2016 [facility] Heart Rate 65 02/04/2017 [facility] Weight 99.54 02/03/2017 [facility] Weight 99.545 01/29/2017 [facility] Height 172.72 cm 01/29/2017 [facility] BMI Calculated 33.37 2016 [facility] Systolic (mm Hg) 92 2016 [facility] Diastolic (mm Hg) 61 2016 [facility] Respitory Rate 18 2016 [facility] Systolic (mm Hg) 96 2016 [facility] Diastolic (mm Hg) 62 2016 [facility] Respitory Rate 15 2016 [facility] Systolic (mm Hg) 93 2016 [facility] Diastolic (mm Hg) 60 2016 [facility] Respitory Rate 14 2016 [facility] BMI Calculated 32.16 2016 [facility] Weight 94.545 01/27/2017 [facility] Height 171.45 cm 01/27/2017 [facility] Weight 93.6 01/02/2017 [facility] Systolic (mm Hg) 137 2016 [facility] Diastolic (mm Hg) 96 2016 [facility] Respitory Rate 17 2016 [facility] Respitory Rate 15 2016 [facility] Systolic (mm Hg) 123 2016 [facility] Diastolic (mm Hg) 83 2016 [facility] Respitory Rate 14 2016 [facility] Systolic (mm Hg) 116 2016 [facility] Diastolic (mm Hg) 82 2016 [facility] Heart Rate 79 01/02/2017 [facility] BMI Calculated 32.33 2016 [facility] Weight 93.636 01/02/2017 [facility] Heart Rate 73 01/02/2017 [facility] Temperature Oral (F) 97.9 F 01/02/2017 [facility] Height 170.18 cm 01/02/2017 [facility] Systolic (mm Hg) 116 2015 [facility] Diastolic (mm Hg) 78 2015 [facility] Temperature Oral (F) 97.6 F 04/16/2016 [facility] Heart Rate 82 04/16/2016 [facility] Respitory Rate 20 2015 [facility] BMI Calculated 30.78 2015 [facility] Weight 91.818 04/16/2016 [facility] Temperature Oral (F) 98.4 F 04/16/2016 [facility] Respitory Rate 20 2015 [facility] Heart Rate 91 04/16/2016 [facility] Height 172.72 cm 04/16/2016 [facility] Systolic (mm Hg) 125 2015 [facility] Diastolic (mm Hg) 87 2015 [facility] Temperature Oral (F) 97.9 F 06/25/2015 [facility] Systolic (mm Hg) 118 2014 [facility] Diastolic (mm Hg) 89 2014 [facility] Heart Rate 85 06/25/2015 [facility] Respitory Rate 22 2014 [facility] BMI Calculated 31.08 2014 [facility] Weight 90 06/24/2015 [facility] Respitory Rate 18 2014 [facility] Heart Rate 99 06/24/2015 [facility] Systolic (mm Hg) 127 2014 [facility] Diastolic (mm Hg) 85 2014 [facility] Temperature Oral (F) 98.5 F 06/24/2015 [facility] Height 170.18 cm 06/24/2015 [facility] Systolic (mm Hg) 117 2013 [facility] Diastolic (mm Hg) 88 2013 [facility] Temperature Oral (F) 98.1 F 11/27/2013 [facility] Heart Rate 86 11/27/2013 [facility] Respitory Rate 16 2013 [facility] Height 170.18 cm 11/26/2013 [facility] Weight 90 11/26/2013 [facility] Temperature Oral (F) 98.5 F 11/26/2013 [facility] Heart Rate 84 11/26/2013 [facility] Diastolic (mm Hg) 72 2013 [facility] Respitory Rate 18 2013 [facility] Systolic (mm Hg) 115 2013 [facility] Respitory Rate 16 2012 [facility] Heart Rate 83 06/23/2013 [facility] Temperature Oral (F) 98.4 F 06/23/2013 [facility] Diastolic (mm Hg) 71 2012 [facility] Systolic (mm Hg) 109 2012 [facility] Diastolic (mm Hg) 71 2012 [facility] Systolic (mm Hg) 113 2012 [facility] Diastolic (mm Hg) 70 2012 [facility] Systolic (mm Hg) 104 2012 [facility] Heart Rate 84 06/23/2013 [facility] Respitory Rate 18 2012 [facility] Temperature Oral (F) 98.8 F 06/23/2013 [facility] Encounters Location Location Details Encounter Type Encounter Number Reason For Visit Attending Provider ADM Date DC Date Status Source [facility] Emergency [id number] KEDAR CHAVEZ 06/22/2013 06/23/2013 Active [facility] Emergency [id number] SHREE WILL 11/26/2013 11/26/2013 Active [facility] [id number] Hermann Rodríguez 06/24/2015 06/25/2015 [facility] [id number] Kedar Chavez 04/16/2016 04/16/2016 [facility] Inpatient [id number] Jcarlos Villa 01/02/2017 01/03/2017 [facility] Outpatient [id number] SAWYER L DAY 01/07/2017 Active [facility] Outpatient [id number] Ray Pratt 01/27/2017 01/27/2017 [facility] Outpatient [id number] SAWYER L DAY 02/03/2017 Active [facility] Inpatient [id number] Sawyer Day 02/03/2017 02/04/2017 [facility] Oncology [facility] Recurring [id number] Effrosyni Apostolidou 201603/20/2017 [facility] Outpatient [id number] SAWYER L DAY 03/11/2017 Active [facility] [id number] Effrosyni Apostolidou 05/04/2017 05/05/2017 [facility] Oncology [facility] Recurring [id number] Effrosyni Apostolidou 201606/19/2017 [facility] Emergency [id number] Eleazar Briceño 06/10/2017 06/11/2017 [facility] Outpatient [id number] SAWYER L DAY 06/24/2017 Active [facility] Emergency [id number] Misha Shelby 201607/05/2017 [facility] Outpatient [id number] SAWYER L DAY 08/17/2017 Active [facility] Inpatient [id number] Sawyer Day 08/17/2017 08/19/2017 [facility] Outpatient [id number] SAWYER L DAY 09/02/2017 Active [facility] Neurosurgery [facility] Phone Message [id number] 09/11/2017 09/13/2017 [facility] [place] [place] Neuro [facility] Neurosurgery [facility] Phone Message [id number] 09/16/2017 09/18/2017 [facility] [place] [place] Neuro [facility] Outpatient [facility] [id number] Radha Spencer 09/26/2017 [facility] Outpatient [id number] SAWYER L DAY 09/30/2017 Active [facility] Neurosurgery [facility] Outpatient [id number] Sawyer Day 09/30/2017 10/01/2017 [facility] Radiation Therapy [facility] Recurring [id number] Fito Anderson 201610/30/2017 [facility] Radiation Therapy [facility] Recurring [id number] Fito Anderson 201611/29/2017 [facility] Neurosurgery [facility] Phone Message [id number] 11/03/2017 11/05/2017 [facility] Recurring [id number] Fito Marino 201712/30/2017 [facility] Outpatient [facility] [id number] [place] 201702/10/2018 [facility] Outpatient [id number] SAWYER L DAY 02/10/2018 Active [facility] Neurosurgery [facility] Ambulatory Pre-Reg [id number] Sawyer Day 02/10/2018 02/10/2018 [facility] Outpatient [id number] SAWYER L DAY 02/24/2018 Active [facility] Neurosurgery [facility] Outpatient [id number] Sawyer Day 02/24/2018 02/25/2018 [facility] Procedures Procedure Code Date Perfomer Comments Source Cerebral angiogram [id number] [facility] Tumor destruction [id number] [facility] Tumor destruction [id number] [facility] Tumor destruction [facility] Cerebral [facility]ogram [id number] [facility] Tumor destruction [id number] [facility] Craniotomy [id number] [facility] Craniotomy [id number] [facility] Cerebral angiogram [id number] [facility]iot[facility] [id number] [facility] Tumor destruction [id number] [facility] [place] [place] Neuro Cerebral angiogram [id number] [facility] Biopsy of brain tissue tumor [id number] [facility]
--- OUTSIDE RECORDS SUMMARY | 2018-04-11 21:49 | XMS REPORT | Summary of Care ---
Author Author [facility] Organization [facility] Address Unknown Phone Unavailable Encounter TRISHA Collins(RAZA) [id number] Date(s): 02/18/17 - 03/19/17 [facility] [address] [place], [place] [address] [phone] Discharge Disposition: Home or Self Care Attending Physician: Abbe Vasquez MD Referring Physician: Abbe Vasquez MD Vital Signs Most recent to 1 oldest [Reference Range]: Height 170.18 cm (02/18/17 1:36 PM) Temperature Oral 98.3 DegF [96.4-99.1 DegF] (02/18/17 1:36 PM) Blood Pressure 114/84 mmHg [90-140/60-90 mmHg] (02/18/17 1:36 PM) Respiratory Rate 18 BRMIN [14-20 BRMIN] (02/18/17 1:36 PM) Peripheral Pulse 85 bpm Rate [60-100 bpm] (02/18/17 1:36 PM) Weight 100.273 kg (02/18/17 1:36 PM) Body Mass Index 34.62 m2 (02/18/17 1:36 PM) Problem List Condition Effective Dates Status Health Status Informant Brain Active tumor(Confirmed) GERD Active (gastroesophageal reflux disease)(Confirmed) Obesity(Confirmed) Active Obesity (BMI Active 30.0-34.9)(Confirmed )1 1BMI-33.3 Allergies, Adverse Reactions, Alerts Substance Reaction Severity Status NKDA Active Medications No Known Medications Results No data available for this section Immunizations Given and Recorded Vaccine Date Status Refusal Reason pneumococcal 23-valent vaccine 01/02/17 Given Procedures Procedure Date Related Diagnosis Body Site Cerebral angiogram Tumor destruction Social History Social History Type Response Alcohol Current, Type Wine. Frequency: 1-2 times per week. Alcohol use interferes with work or home: No. Drinks more than intended: No. Others hurt by drinking: No. Ready to change: No. Household alcohol concerns: No. Smoking Status Current some day smoker; Type: Cigarettes; Number of years: 10; Previous treatment: None; Ready to change: Yes; Concerns about tobacco use in household: No; Exposure to Tobacco Smoke None; Cigarette Smoking Last 365 Days Yes; Reg Smoking Cessation Counseling Yes Assessment and Plan No data available for this section
--- OUTSIDE RECORDS SUMMARY | 2018-04-11 21:49 | XMS REPORT | Summary of Care ---
Author Author [facility] Organization [facility] Address Unknown Phone Unavailable Encounter TRISHA Collins(RAZA) [id number] Date(s): 06/10/17 - 06/11/17 [facility] [address] [employer] provided by [employer] [place] [address]- Discharge Diagnosis: Headache Discharge Disposition: Home or Self Care Attending Physician: Eleazar Briceño MD Vital Signs 1 2 3 Most recent to oldest [Reference Range]: 172.72 cm (06/10/17 6:12 PM) Height 97.9 DegF (06/11/17 7:00 AM) 98.1 DegF (06/11/17 5:30 AM) 98.3 DegF (06/11/17 1:28 AM) Temperature Oral [96.4-99.1 DegF] 136/79 mmHg (06/11/17 7:00 AM) 131/76 mmHg (06/11/17 5:30 AM) 120/76 mmHg (06/11/17 4:20 AM) Blood Pressure [90-140/60-90 mmHg] 18 BRMIN (06/11/17 7:00 AM) 18 BRMIN (06/11/17 5:30 AM) 18 BRMIN (06/11/17 4:20 AM) Respiratory Rate [14-20 BRMIN] 85 bpm (06/10/17 7:48 PM) 64 bpm (06/10/17 6:12 PM) Peripheral Pulse Rate [60-100 bpm] 95 kg (06/10/17 6:12 PM) Weight 31.84 m2 (06/10/17 6:12 PM) Body Mass Index Problem List Condition Effective Dates Status Health Status Informant Brain Active tumor(Confirmed) GERD Active (gastroesophageal reflux disease)(Confirmed) Obesity(Confirmed) Active Obesity (BMI Active 30.0-34.9)(Confirmed )1 1BMI-33.3 Allergies, Adverse Reactions, Alerts Substance Reaction Severity Status NKDA Active Medications Compazine 10 mg, Route: IV, ONCE, Dosing Weight 95, kg, Start date: 06/11/17 5:45:00 CDT, Stop date: 06/11/17 5:45:00 CDT Start Date: 06/11/17 Stop Date: 06/11/17 Status: Completed dexamethasone 4 mg oral tablet 4 mg=1 tab, PO, BID, X 14 day, # 28 tab, 0 Refill(s) Start Date: 06/11/17 Stop Date: 06/25/17 Status: Ordered ibuprofen 800 mg, Route: PO, Drug form: TAB, ONCE, Dosing Weight 95, kg, Priority: STAT, Start date: 06/11/17 5:44:00 CDT, Stop date: 06/11/17 5:44:00 CDT Start Date: 06/11/17 Stop Date: 06/11/17 Status: Completed ketOROLAC 30 mg, Route: IVP, Drug form: INJ, ONCE, Dosing Weight 95, kg, Priority: STAT, Start date: 06/10/17 23:34:00 CDT, Stop date: 06/10/17 23:34:00 CDT Start Date: 06/10/17 Stop Date: 06/10/17 Status: Completed ketOROLAC 30 mg, Route: IM, Drug form: INJ, ONCE, Dosing Weight 95, kg, Priority: STAT, Start date: 06/10/17 22:51:00 CDT, Stop date: 06/10/17 22:51:00 CDT Start Date: 06/10/17 Stop Date: 06/10/17 Status: Completed Pepcid 20 mg oral tablet 20 mg=1 tab, PO, BID, # 28 tab, 0 Refill(s) Start Date: 06/11/17 Stop Date: 06/25/17 Status: Ordered Reglan 10 mg, Route: IVP, Drug form: INJ, ONCE, Dosing Weight 95, kg, Priority: STAT, Start date: 06/10/17 22:51:00 CDT, Stop date: 06/10/17 22:51:00 CDT Start Date: 06/10/17 Stop Date: 06/10/17 Status: Completed sodium chloride 0.9% 1000 ml INJ 1,000 mL 1,000 mL, Rate: 100 ml/hr, Infuse over: 10 hr, Route: IVPB, Dosing Weight 95 kg , Total Volume: 1,000, Start date: 06/10/17 23:41:00 CDT, Duration: 30 day, Stop date: 07/10/17 23:40:00 CDT Start Date: 06/10/17 Stop Date: 06/11/17 Status: Discontinued Valium 5 mg, Route: PO, ONCE, Dosing Weight 95, kg, Priority: STAT, Start date: 1:34:00 CDT, Stop date: 06/11/17 1:34:00 CDT Start Date: 06/11/17 Stop Date: 06/11/17 Status: Completed Results ELECTROLYTES Most recent to 1 oldest [Reference Range]: Sodium Lvl [135-145 139 mEq/L mEq/L] (06/10/17 8:07 PM) Potassium Lvl 4.6 mEq/L [3.5-5.1 mEq/L] (06/10/17 8:07 PM) Chloride Lvl [95-109 104 mEq/L mEq/L] (06/10/17 8:07 PM) CO2 [24-32 mEq/L] 27 mEq/L (06/10/17 8:07 PM) AGAP [10.0-20.0 12.6 mEq/L mEq/L] (06/10/17 8:07 PM) CHEM PANEL Most recent to 1 2 oldest [Reference Range]: Creatinine Lvl 0.88 mg/dL [0.50-1.40 mg/dL] (06/10/17 8:07 PM) eGFR 93 mL/min/1.73m2 1 *NA* (06/10/17 8:07 PM) BUN [7-22 mg/dL] 13 mg/dL (06/10/17 8:07 PM) Glucose Lvl [70-99 100 mg/dL mg/dL] *HI* (06/10/17 8:07 PM) Calcium Lvl 8.8 mg/dL [8.5-10.5 mg/dL] (06/10/17 8:07 PM) 1Result Comment: The eGFR is calculated using the CKD-EPI formula. In most young , healthy individuals the eGFR will be >90 mL/min/1.73m2. The eGFR declines with age. An eGFR of 60-89 may be normal in some populations, particularly the elderly, for whom the CKD-EPI formula has not been extensively validated. Use [...] should be multiplied by the estimated BMI. HEMATOLOGY Most recent to 1 2 oldest [Reference Range]: WBC [3.7-10.4 K/CMM] 6.3 K/CMM (06/10/17 8:07 PM) RBC [4.20-5.40 4.62 M/CMM M/CMM] (06/10/17 8:07 PM) Hgb [12.0-16.0 g/dL] 13.1 g/dL (06/10/17 8:07 PM) Hct [36.0-48.0 %] 39.6 % (06/10/17 8:07 PM) MCV [80.0-98.0 fL] 85.7 fL (06/10/17 8:07 PM) MCH [27.0-31.0 pg] 28.4 pg (06/10/17 8:07 PM) MCHC [32.0-36.0 33.1 g/dL g/dL] (06/10/17 8:07 PM) RDW [11.5-14.5 %] 13.7 % (06/10/17 8:07 PM) Platelet [133-450 294 K/CMM K/CMM] (06/10/17 8:07 PM) MPV [7.4-10.4 fL] 8.0 fL (06/10/17 8:07 PM) Segs [45.0-75.0 %] 47.3 % (06/10/17 8:07 PM) Lymphocytes 43.1 % [20.0-40.0 %] *HI* (06/10/17 8:07 PM) Monocytes [2.0-12.0 7.6 % %] (06/10/17 8:07 PM) Eosinophils [0.0-4.0 1.3 % %] (06/10/17 8:07 PM) Basophils [0.0-1.0 0.7 % %] (06/10/17 8:07 PM) Segs-Bands # 3.0 K/CMM [1.5-8.1 K/CMM] (06/10/17 8:07 PM) Lymphocytes # 2.7 K/CMM [1.0-5.5 K/CMM] (06/10/17 8:07 PM) Monocytes # [0.0-0.8 0.5 K/CMM K/CMM] (06/10/17 8:07 PM) Eosinophils # 0.1 K/CMM [0.0-0.5 K/CMM] (06/10/17 8:07 PM) PT [12.0-14.7 12.7 seconds 12.3 seconds seconds] (06/11/17 12:36 AM) (06/10/17 8:07 PM) INR [0.85-1.17] 0.93 0.90 (06/11/17 12:36 AM) (06/10/17 8:07 PM) PTT [22.9-35.8 31.5 seconds 28.4 seconds seconds] (06/11/17 12:36 AM) (06/10/17 8:07 PM) ACT (TEG) Rapid 89 seconds [86-118 seconds] (06/11/17 12:36 AM) Split Point Rapid 0.3 minutes *NA* (06/11/17 12:36 AM) R-time Rapid 0.4 minutes [0.4-0.7 minutes] (06/11/17 12:36 AM) K-time Rapid 0.8 minutes [0.6-2.3 minutes] (06/11/17 12:36 AM) Angle Rapid [64-80 81 degrees degrees] *HI* (06/11/17 12:36 AM) Max Amplitude Rapid 68 mm [52-71 mm] (06/11/17 12:36 AM) G-value Rapid 10.4 K d/sc [5.0-11.6 K d/sc] (06/11/17 12:36 AM) Estimated % Lysis 0.3 % Rapid [0.0-7.5 %] (06/11/17 12:36 AM) Immunizations Given and Recorded Vaccine Date Status [...] Smoking Cessation Counseling Yes Assessment and Plan Extracted from: Title: Ophthalmology Consult Note Author: Deirdre Lopez MD Date: Ophthalmology Consultation Note Patient Name: Neelima Iqbal MR#: [id number] Room: ED 37 Requesting Team: ED Date of Consult: 06/11/17 Consulting Attending: Vee Anderson MD Consulting Resident: Deirdre Lopez MD, MPH Reason for Consult: blurry vision in the setting of suprasellar mass History of Present Illness: Ms. Iqbal is a 41 year old woman with PMHx migraine headaches, sellar/ suprasellar mass s/p partial resection in 2008 (follows with [facility] neurosurgery), and IJ thrombus s/p anticoagulation who presented to the ED with worse headache for the past 3 days. Ophthalmology is consulted to evaluate blurry vision associated with her headache. Previous CT and MRI scan done by neurosurgery has shown a right sided suprasellar mass consistent with a meningioma. She has known that she had a brain tumor since 2008 when she initially presented due to decreased vision in the right eye, for which she had a partial resection of the tumor. She states that her vision in the right eye slowly faded over time and is currently at baseline (where she can only see some light out of it). She says that for the past 3 days she had a worse headache than normal which caused blurry vision in her left eye. She was concerned she would lose vision in the left eye similar to how she lost vision in the right eye, however she says that since her headache has improved here, her vision is back at baseline in both eyes. She was most recently seen by the Ophthalmology team in December 2016 when she initially presented here. She was unable to undergo resection of the tumor at that time by neurosurgery due to an IJ thrombus and is now s/p anticoagulation for this. Review of Systems: Constitutional Symptoms: no fever, weight changes. Eyes: as above Ears, Nose, Mouth, Throat: no rhinorrhea, hearing changes, or oral lesions. Cardiovascular: no chest pain Respiratory: No cough or shortness of breath. Gastrointestinal: no nausea, vomiting, diarrhea Genitourinary: no changes in UOP. Hematopoietic/Lymphatic: no easy bruising, LAD. Musculoskeletal: no generalized pain. Integumentary: no rash Neurological: + headache, balance issues. Psychiatry: no behavioral change. Allergy/Immune system: No allergies. Past Ocular History: no previous diagnoses Past Medical History: migraine headaches, sellar/suprasellar mass Past Surgical History: partial resection of brain tumor/craniotomy Social History: Alcohol Details: Current, Type Wine. Frequency: 1-2 times per week. Alcohol use interferes with work or home: No. Drinks more than intended: No. Others hurt by drinking: No. Ready to change: No. Household alcohol concerns: No. Tobacco Details: Use: Current some day smoker. Type: Cigarettes. 10 year(s). Previous treatment: None. Ready to change: Yes. Household tobacco concerns: No. Tobacco smoke exposure: None. Did the Patient Smoke Cigarettes Anytime During the Last 365 Days? Yes. Cessation Counseling Provided? Yes. Family History: No known ocular disease. Mother: Hypertension Allergies: NKDA One Time Meds (3): 06/10/17 22:51 (not done) ketOROLAC 30 mg IM ONCE 06/10/17 23:34 (Completed) ketOROLAC 30 mg IVP ONCE 06/10/17 22:51 (Completed) metoclopramide (Reglan) 10 mg IVP ONCE Eye Medication: none Examination: Neuro/MS: Patient is alert and oriented to person, place, and time. Mental status is grossly normal. 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 Left eye: 12/12 Ishihara plates. 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 Left eye: full to CF Extraocular motility: Full both eyes. Pupils: Right eye: 6->5mm with normal direct and consensual response. +afferent pupillary defect noted. Left eye: 5->3mm with normal direct and consensual response. No afferent pupillary defect noted. Intraocular Pressure: Symmetric and normal to palpation both eyes. Right eye 19 , Left eye 19 using the Tonopen. External: Within normal limits both eyes. ANTERIOR SEGMENT EXAM: Lids/Lashes/Lacrimals: As above. Conjunctiva/Sclera: White and quiet both eyes. Cornea: Clear both eyes. Anterior Chamber: Formed and grossly clear both eyes. Iris: Round and reactive both eyes. Lens: Clear both eyes. Dilated Fundus Exam (Both eyes dilated with phenylephrine 2.5% and tropicamide 1 % @12:30AM): Optic Nerve: Right eye: diffuse pallor Left eye: pink, sharp margins, flat C:D Ratio: Right eye: 0.2 Left eye: 0.2 Posterior Segment: Right eye: macula, vessels, periphery within normal limits Left eye: macula, vessels, periphery within normal limits Imaging: MRI brain pending Procedures Performed: none Diagnoses/Recommendation: 1. 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 Monocular precautions - MRI brain per neurosurgery pending We will continue to follow MRI results. Please call if any changes develop. Please call for a follow-up appointment at the [facility] with Dr. Anderson after discharge. (Located: [address] [place] [address], 18th floor; Appt #: [phone]) Deirdre Lopez MD, MPH PGY3, Ophthalmology Pager #[phone]
--- OUTSIDE RECORDS SUMMARY | 2018-04-11 21:49 | XMS REPORT | Summary of Care ---
Author Author [facility] Organization [facility] Address Unknown Phone Unavailable Encounter TRISHA Collins(RAZA) [id number] Date(s): 07/04/17 - 07/04/17 [facility] [address] [place] [address]- Discharge Diagnosis: Abscess of right external cheek Discharge Disposition: Home or Self Care Attending Physician: Misha Shelby DO Vital Signs Most recent to 1 oldest [Reference Range]: Height 170.18 cm (07/04/17 8:25 PM) Temperature Oral 98.3 DegF [96.4-99.1 DegF] (07/04/17 8:25 PM) Blood Pressure 134/78 mmHg [90-140/60-90 mmHg] (07/04/17 8:25 PM) Respiratory Rate 16 BRMIN [14-20 BRMIN] (07/04/17 8:25 PM) Peripheral Pulse 94 bpm Rate [60-100 bpm] (07/04/17 8:25 PM) Weight 93.182 kg (07/04/17 8:25 PM) Body Mass Index 32.17 m2 (07/04/17 8:25 PM) Problem List Condition Effective Dates Status Health Status Informant Brain Active tumor(Confirmed) GERD Active (gastroesophageal reflux disease)(Confirmed) Obesity(Confirmed) Active Obesity (BMI Active 30.0-34.9)(Confirmed )1 1BMI-33.3 Allergies, Adverse Reactions, Alerts Substance Reaction Severity Status NKDA Active Medications ibuprofen 600 mg oral tablet 600 mg=1 tab, PO, Q6H, PRN Pain or Fever, Take with food, X 10 day, # 40 tab, 0 Refill(s) Start Date: 07/04/17 Stop Date: 07/14/17 Status: Ordered Keflex 500 mg oral capsule 500 mg=1 cap, PO, BID, X 7 day, # 14 cap, 0 Refill(s) Start Date: 07/04/17 Stop Date: 07/11/17 Status: Ordered Results No data available for this section [...] No. Household alcohol concerns: No. Smoking Status Cigarette Smoking Last 365 Days Yes; Reg Smoking Cessation Counseling Yes; Current some day smoker; Type: Cigarettes; Number of years: 10; Previous treatment: None; Ready to change: Yes; Concerns about tobacco use in household: No; Exposure to Tobacco Smoke None Assessment and Plan No data available for this section
--- OUTSIDE RECORDS SUMMARY | 2018-04-11 21:49 | XMS REPORT | Summary of Care ---
Author Author [facility] Organization [facility] Address Unknown Phone Unavailable Encounter TRISHA Collins(RAZA) [id number] Date(s): 01/02/17 - 01/02/17 [facility] [address] [employer] provided by [facility] [place] [address]- Discharge Disposition: Home or Self Care Attending Physician: Sawyer Brown MD Admitting Physician: Sawyer Brown MD Referring Physician: Jcarlos Villa MD Vital Signs 1 2 3 Most recent to oldest [Reference Range]: 170.18 cm (01/02/17 5:43 AM) Height 97.9 DegF (01/02/17 5:43 AM) Temperature Oral [96.4-99.1 DegF] 137/96 mmHg (01/02/17 12:07 PM) 123/83 mmHg (01/02/17 11:08 AM) 116/82 mmHg (01/02/17 10:00 AM) Blood Pressure [90-140/60-90 mmHg] 17 BRMIN (01/02/17 12:07 PM) 15 BRMIN (01/02/17 12:04 PM) 14 BRMIN (01/02/17 11:08 AM) Respiratory Rate [14-20 BRMIN] 79 bpm (01/02/17 6:07 AM) 73 bpm (01/02/17 5:43 AM) Peripheral Pulse Rate [60-100 bpm] 93.6 kg (01/02/17 1:16 PM) 93.636 kg (01/02/17 5:43 AM) Weight 32.33 m2 (01/02/17 5:43 AM) Body Mass Index Problem List Condition Effective Dates Status Health Status Informant Brain Active tumor(Confirmed) Allergies, Adverse Reactions, Alerts Substance Reaction Severity Status NKDA Active Medications acetaminophen 650 mg, 2 tab, Route: PO, Drug form: TAB, Q4H, Dosing Weight 93.636, kg, PRN Pain 1-3/Temp > 99.5 F, Start date: 01/02/17 11:26:00 NAIL TECH, Duration: 30 day, Stop date: 02/01/17 11:25:00 CDT Notes: Do not exceed 4 gm/day. (Same as: Tylenol) Start Date: 01/02/17 Stop Date: 01/02/17 Status: Discontinued acetaminophen-hydrocodone 325 mg-5 mg oral tablet 1 tab, Route: PO, Drug Form: TAB, Dosing Weight 93.636, kg, Q4H, PRN Pain Score 1-3, Start date: 01/02/17 11:26:00 NAIL TECH, Duration: 30 day, Stop date: 02/01/17 11 :25:00 CDT Notes: (Same as: [place] 325/5) Do not exceed 4gm/day of acetaminophen. Start Date: 01/02/17 Stop Date: 01/02/17 Status: Discontinued dexamethasone 10 mg, 1 mL, Route: IVP, Drug form: INJ, ONCE, Dosing Weight 93.636, kg, Start date: 01/02/17 11:26:00 NAIL TECH, Stop date: 01/02/17 11:26:00 NAIL TECH Notes: MEDICATION WASTE Product Size: 10 mgProduct Wasted: ___ mg Start Date: 01/02/17 Stop Date: 01/02/17 Status: Completed dexamethasone 4 mg, 1 tab, Route: PO, Drug form: TAB, Q6H, Dosing Weight 93.636, kg, Start date: 01/02/17 18:00:00 NAIL TECH, Duration: 30 day, Stop date: 02/01/17 12:00:00 CDT Notes: Give with food.(Same As: Decadron) Start Date: 01/02/17 Stop Date: 01/02/17 Status: Discontinued dexamethasone 4 mg oral tablet 4 mg=1 tab, PO, BID, with food, 0 Refill(s) Start Date: 01/02/17 Stop Date: 01/02/17 Status: Discontinued dexamethasone 4 mg oral tablet 4 mg=1 tab, PO, BID, with food, X 7 day, # 14 tab, 0 Refill(s) Start Date: 01/02/17 Stop Date: 01/09/17 Status: Ordered docusate 100 mg, 1 cap, Route: PO, Drug form: CAP, Q12H, Dosing Weight 93.636, kg, Start date: 01/02/17 21:00:00 NAIL TECH, Duration: 30 day, Stop date: 02/01/17 9:00:00 CDT Notes: (Same as: Colace) (Do Not Crush) Start Date: 01/02/17 Stop Date: 01/02/17 Status: Canceled famotidine 20 mg, 2 mL, Route: IVP, Drug form: INJ, Q12H, Dosing Weight 93.636, kg, Start date: 01/02/17 21:00:00 NAIL TECH, Duration: 30 day, Stop date: 02/01/17 9:00:00 CDT Notes: (Same as: Pepcid)Can be dilute in 5-10cc NS IVP: Slow IV push over at least 2 minutes. Start Date: 01/02/17 Stop Date: 01/02/17 Status: Canceled Isolyte S PH-7.4 (Bolus) IV 1,000 mL, Route: IV, Dosing Weight 93.636, kg, ONCE, Start date: 01/02/17 6:10: 00 NAIL TECH, Stop date: 01/02/17 6:10:00 NAIL TECH Start Date: 01/02/17 Stop Date: 01/02/17 Status: Completed Keppra 1,000 mg, Route: IVP, ONCE, Dosing Weight 93.636, kg, Start date: 01/02/17 9:24: 00 NAIL TECH, Stop date: 01/02/17 9:24:00 NAIL TECH Start Date: 01/02/17 Stop Date: 01/02/17 Status: Completed Keppra 500 mg oral tablet 500 mg, 1 tab, Route: PO, Drug form: TAB, BID, Dosing Weight 93.636, kg, Start date: 01/02/17 21:00:00 NAIL TECH, Duration: 30 day, Stop date: 02/01/17 9:00:00 CDT Notes: (Same as:Keppra) Start Date: 01/02/17 Stop Date: 01/02/17 Status: Canceled Keppra 500 mg oral tablet 1,000 mg=2 tab, PO, BID, # 120 tab, 0 Refill(s) Start Date: 01/02/17 Stop Date: 02/01/17 Status: Ordered Omnipaque 350mg/ml 60 mL, Route: IVP, Drug Form: SOLN, Dosing Weight 93.636, kg, ONCALL, STAT, Start date: 01/02/17 9:15:00 NAIL TECH, Duration: 1 doses or times, Stop date: 21:00:00 NAIL TECH, Dose=2.2ml/kg, Max ngfn=030kw -- "To be infused by Radiology Staff ONLY" Notes: (same as:Omnipaque 350).WASTE: F/P - Black; E - Municipal Trash Bin Start Date: 01/02/17 Stop Date: 01/02/17 Status: Discontinued ondansetron 4 mg, 2 mL, Route: IVP, Drug form: INJ, Q8H, Dosing Weight 93.636, kg, PRN Nausea & Vomiting, Start date: 01/02/17 11:26:00 NAIL TECH, Duration: 30 day, Stop date: 02/01/17 11:25:00 CDT Notes: (Same as: Mily) MEDICATION WASTE Product Size: 4 mgProduct Wasted: ___ mg Start Date: 01/02/17 Stop Date: 01/02/17 Status: Discontinued Pepcid 20 mg oral tablet 20 mg=1 tab, PO, BID, # 60 tab, 0 Refill(s) Start Date: 01/02/17 Status: Ordered pneumococcal 23-valent vaccine 0.5 mL, Route: IM, Drug Form: INJ, Daily, Start date: 01/02/17 18:30:00 NAIL TECH, Duration: 1 doses or times, Stop date: 01/02/17 18:30:00 NAIL TECH Notes: (Same as: Pneumovax 23) Refrigerate Start Date: 01/02/17 Stop Date: 01/02/17 Status: Completed Saline Flush 0.9% 10 ml, Route: IVP, Drug Form: INJ, Dosing Weight 93.636, kg, PRN, PRN Line Flush , Start date: 01/02/17 11:26:00 NAIL TECH, Duration: 30 day, Stop date: 02/01/17 12:25 :00 CDT Notes: Same as: BD Posiflush Sterile Start Date: 01/02/17 Stop Date: 01/02/17 Status: Discontinued Saline Flush 0.9% 10 ml, Route: IVP, Drug Form: INJ, Dosing Weight 93.636, kg, Q12H, Start date: 01/02/17 21:00:00 NAIL TECH, Duration: 30 day, Stop date: 02/01/17 9:00:00 CDT Notes: Same as: BD Posiflush Sterile Start Date: 01/02/17 Stop Date: 01/02/17 Status: Canceled senna 8.6 mg, 1 tab, Route: PO, Drug Form: TAB, Dosing Weight 93.636, kg, Q12H, Start date: 01/02/17 21:00:00 NAIL TECH, Duration: 30 day, Stop date: 02/01/17 9:00:00 CDT Notes: (Same as: Senokot) Start Date: 01/02/17 Stop Date: 01/02/17 Status: Canceled Valium 5 mg, Route: PO, ONCE, Dosing Weight 93.636, kg, Priority: STAT, Start date: 01/16 8:56:00 NAIL TECH, Stop date: 01/02/17 8:56:00 NAIL TECH Start Date: 01/02/17 Stop Date: 01/02/17 Status: Completed Results BLOOD BANK RESULTS Most recent to 1 oldest [Reference Range]: ABO/Rh A POS *Unknown* (01/02/17 6:14 AM) Antibody Scrn Negative (01/02/17 6:14 AM) ELECTROLYTES Most recent to 1 oldest [Reference Range]: Sodium Lvl [135-145 138 mEq/L mEq/L] (01/02/17 6:14 AM) Potassium Lvl 4.4 mEq/L [3.5-5.1 mEq/L] (01/02/17 6:14 AM) Chloride Lvl [95-109 107 mEq/L mEq/L] (01/02/17 6:14 AM) CO2 [24-32 mEq/L] 22 mEq/L *LOW* (01/02/17 6:14 AM) AGAP [10.0-20.0 13.4 mEq/L mEq/L] (01/02/17 6:14 AM) CHEM PANEL Most recent to 1 oldest [Reference Range]: Creatinine Lvl 0.78 mg/dL [0.50-1.40 mg/dL] (01/02/17 6:14 AM) eGFR 108 mL/min/1.73m2 1 *NA* (01/02/17 6:14 AM) BUN [7-22 mg/dL] 9 mg/dL (01/02/17 6:14 AM) Glucose Lvl [70-99 118 mg/dL mg/dL] *HI* (01/02/17 6:14 AM) Calcium Lvl 8.1 mg/dL [8.5-10.5 mg/dL] *LOW* (01/02/17 6:14 AM) Lactic Acid Lvl 0.9 mMol/L [0.5-2.2 mMol/L] (01/02/17 6:14 AM) 1Result Comment: The eGFR is calculated using [...] should be multiplied by the estimated BMI. SPECIAL CHEMISTRY Most recent to 1 oldest [Reference Range]: ACTH Lvl [0-46 <5 pg/mL pg/mL] (01/02/17 7:52 AM) ENDOCRINOLOGY Most recent to 1 oldest [Reference Range]: Cortisol 5.6 ug/dl *NA* (01/02/17 7:52 AM) Growth Hormone 0.1 ng/mL [0.0-8.0 ng/mL] (01/02/17 7:52 AM) LH 2.42 mIU/mL *NA* (01/02/17 7:52 AM) FSH 4.2 mIU/mL *NA* (01/02/17 7:52 AM) Prolactin Lvl 9.7 ng/mL *NA* (01/02/17 7:52 AM) URINE AND STOOL Most recent to 1 oldest [Reference Range]: UA Turbidity [Clear] Clear (01/02/17 6:14 AM) UA Color [Yellow] Yellow *NA* (01/02/17 6:14 AM) UA pH [5.0-8.0] 5.5 (01/02/17 6:14 AM) UA Spec Grav 1.010 [<=1.030] (01/02/17 6:14 AM) UA Glucose Negative [Negative] (01/02/17 6:14 AM) UA Blood [Negative] Trace *ABN* (01/02/17 6:14 AM) UA Ketones Negative [Negative] *NA* (01/02/17 6:14 AM) UA Protein Negative [Negative] (01/02/17 6:14 AM) UA Urobilinogen 0.2 EU/dL [0.1-1.0 EU/dL] (01/02/17 6:14 AM) UA Bili [Negative] Negative *NA* (01/02/17 6:14 AM) UA Leuk Est Negative [Negative] (01/02/17 6:14 AM) UA Nitrite Negative [Negative] (01/02/17 6:14 AM) UA WBC [None Seen] None Seen (01/02/17 6:14 AM) UA RBC [0-2 /HPF] 0-2 /HPF (01/02/17 6:14 AM) UA Bacteria [None None Seen Seen] (01/02/17 6:14 AM) UA Sq Epi [Few] None Seen (01/02/17 6:14 AM) IMMUNOLOGY Most recent to 1 oldest [Reference Range]: IGF I [62-204 ng/mL] 83 ng/mL 1 *NA* (01/02/17 7:52 AM) 1Result Comment: Performed At: [address] [id number] Zeke Banda MD Ph:[phone] HEMATOLOGY Most recent to 1 oldest [Reference Range]: WBC [3.7-10.4 K/CMM] 13.2 K/CMM *HI* (01/02/17 6:14 AM) RBC [4.20-5.40 4.36 M/CMM M/CMM] (01/02/17 6:14 AM) Hgb [12.0-16.0 g/dL] 12.6 g/dL (01/02/17 6:14 AM) Hct [36.0-48.0 %] 38.3 % (01/02/17 6:14 AM) MCV [80.0-98.0 fL] 87.9 fL (01/02/17 6:14 AM) MCH [27.0-31.0 pg] 29.0 pg (01/02/17 6:14 AM) MCHC [32.0-36.0 33.0 g/dL g/dL] (01/02/17 6:14 AM) RDW [11.5-14.5 %] 13.5 % (01/02/17 6:14 AM) Platelet [133-450 275 K/CMM K/CMM] (01/02/17 6:14 AM) MPV [7.4-10.4 fL] 7.8 fL (01/02/17 6:14 AM) Segs [45.0-75.0 %] 90.3 % *HI* (01/02/17 6:14 AM) Lymphocytes 8.9 % [20.0-40.0 %] *LOW* (01/02/17 6:14 AM) Monocytes [2.0-12.0 0.6 % %] *LOW* (01/02/17 6:14 AM) Basophils [0.0-1.0 0.2 % %] (01/02/17 6:14 AM) Segs-Bands # 11.9 K/CMM [1.5-8.1 K/CMM] *HI* (01/02/17 6:14 AM) Lymphocytes # 1.2 K/CMM [1.0-5.5 K/CMM] (01/02/17 6:14 AM) Monocytes # [0.0-0.8 0.1 K/CMM K/CMM] (01/02/17 6:14 AM) PT [12.0-14.7 13.2 seconds seconds] (01/02/17 6:14 AM) INR [0.85-1.17] 0.98 (01/02/17 6:14 AM) PTT [22.9-35.8 28.0 seconds seconds] (01/02/17 6:14 AM) Immunizations Given and Recorded Vaccine Date Status Refusal Reason pneumococcal 23-valent vaccine 01/02/17 Given Procedures Procedure Date Related Diagnosis Body Site Tumor destruction Social History Social History Type [...] 365 Days Yes; Reg Smoking Cessation Counseling No Assessment and Plan Extracted from: Title: Endocrine Consult Note Author: Crispin Shelby MD Date: 01/02/17 Endocrine Consult Note: Patient Room: [address] (: 1975) F Attending: Sawyer Brown MDPhone: Service: Neurosurgery DATE OF CONSULT: _01/02/17 REFERRING PHYSICIAN: _Dr. Sawyer Brown CONSULTING PHYSICIAN: _Dr. 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 Per patient, after suprasellar mass resection, had seziures and was placed on unknown AED. Self-discontinued medication after ~1 yr as seizures had resolved. 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 Was since started on Topomax 50mg PO BID , but has been non-compliant with medicaiton. 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 On night 01/01 at ~11pm, patient had witnessed seizure of 5 -10 minute diration with jerking movements of B/L LE. Also had post-ictal confusion with no recollection of events before or after the seizure. Patient was orignally brought to [facility] where OSH CT Head noted increase size of sellar/suprasellar mass (noted size 2.9 x 2.9 x 2cm vs 2.6 x2 x2.2 cm in 04/2016) . At [facility] patient was given IV dexamethasone and 500mg IV keppra load prior to transfer to [facility] for neurosurigical evaluation. Endocrine was futher consulted for evaluation of piteuitary mass in regards to possible hormonal dysfunction. Patient endosing sx of fatigue x coulple days, and currenty nausea. Also states worsening headahces, nausea, and gradually decreasing R Eye vision over the past couple years. Patient also enroses unintentional weight gain (unknown quantity), along with some lightheadness on standing. Otherwise jude sx of easy bruising, abdominal striae/stretch marcelo, hot/cold intolerance, tremors/ palpitaitons, diarrhea/constipation, irrgular menses, changes in ring size or shoe size, or swelling, denies nipple discharge. Patietn states after her previous surgery in 2008, she was never needed any hormone replacement either. PAST MEDICAL HISTORY: _Pituitary Macroadenoma, Seizure d/o, Chronic migraines PAST SURGICAL HISTORY: _Partial resection of Sellar/Suprasellar mass via R Craniotomy (2008) SOCIAL HISTORY: _Denies Tobacco or IDU. Social Drinker FAMILY HISTORY: _HTN - Mother; Ovarian Ca - Grandmother Allergies (1) ActiveReaction NKDANone documented Medications (16) Active Scheduled Meds (7): 01/02/17 dexamethasone 4 mg PO Q6H 01/02/17 docusate 100 mg PO Q12H 01/02/17 famotidine 20 mg IVP Q12H 01/02/17 levETIRAcetam (Keppra 500 mg oral tablet) 500 mg PO BID 01/03/17 pneumococcal 23-valent vaccine 0.5 mL IM Daily 01/02/17 senna 8.6 mg PO Q12H 01/02/17 sodium chloride (Saline Flush 0.9%) 10 ml IVP Q12H Unscheduled Meds (1): 01/02/17 iohexol (Omnipaque 350mg/ml) 60 mL IVP ONCALL PRN Meds (4): 01/02/17 acetaminophen-hydrocodone (acetaminophen-hydrocodone 325 mg-5 mg oral tablet) 1 tab PO Q4H 01/02/17 acetaminophen 650 mg PO Q4H 01/02/17 ondansetron 4 mg IVP Q8H 01/02/17 sodium chloride (Saline Flush 0.9%) 10 ml IVP PRN One Time Meds (4): 01/02/17 (Completed) Electrolyte Solution (Isolyte S PH-7.4 (Bolus) IV) 1,000 mL IV ONCE 01/02/17 (Completed) dexamethasone 10 mg IVP ONCE 01/02/17 (Completed) diazepam (Valium) 5 mg PO ONCE 01/02/17 (Completed) levETIRAcetam (Keppra) 1,000 mg IVP ONCE Continuous Infusions: None REVIEW OF SYSTEMS: As noted above in HPI PHYSICAL EXAMINATION: Vital Signs - Reviewed VitalsTmp(F)[id number] 01/02 12:07----[id number]------ 01/02 12:04----73-----15------ 01/02 11:08----[id number]------ 01/02 10:00-------116/82--94--- 01/02 09:00----83-----3397--- 24 Hr Tmax: 97.9F (36.61c) at 01/02 05:43Vital Signs are the last 5 in the past 48 hours. DateWt(kg)Wt(lb)Ht(cm)Ht(in)Method 01/02 (initial) 93.64 206.00Estimated 70.18 67.00Stated General- _Laying in bed in NAD. HEENT- _R afferent pupillary defect. Pupils dilated 2/2 opthalmolgic exam. Complete blindness of R eye. EOMI. NC/AT. Thyroid non-palpable. CVS- _RRR, no M/R/G. normal S1 and S2 Chest- _Lung CTAB, symmetrical chest expansion. No increased WOB. Abdomen- _Soft, NTND, NABS, no organomegaly. No Abdominal striae Extremities- _No edema noted. Pulses palpable peripherally Skin- _No brusining, rash, leisons. Neuro- _A&Ox3. 5/5 strength in proximal and distal B/L UE and B/L LE. (5/5 B/L Shoulder Girdle and Hip Flexor and Pre Owned Sales Manager strength) Psych- _Cooperative, appropriate mood, affect, and judgement. DATA: 24hr Labs 01/02 0752 T4 Free1.01 TSH0.673 Cortisol5.6 FSH4.2 LH2.42 Prolactin Lvl9.7 ACTH Lvl<5 01/02 0614 Antibody ScrnNegative ABO/RhA POS Temp Ven37.0 pH Ven7.31 pCO2 Ven47 pO2 Ven25 HCO3 Ven24 BE Da-3 L O2 Sat Ven38.4 L Glucose Pvr335 H BUN9 Creatinine Lvl0.78 Sodium Xqy341 Potassium Lvl4.4 Chloride Yyl099 CO222 L AGAP13.4 Calcium Lvl8.1 L lOFG958 Lactic Acid Lvl0.9 WBC13.2 H RBC4.36 Hgb12.6 Hct38.3 MCV87.9 MCH29.0 MCHC33.0 RDW13.5 Jpztghrd245 MPV7.8 Segs90.3 H Monocytes0.6 L Lymphocytes8.9 L Basophils0.2 Segs-Bands #11.9 H Lymphocytes #1.2 Monocytes #0.1 PT13.2 INR0.98 PTT28.0 UA ColorYellow UA TurbidityClear UA Spec Grav1.010 UA pH5.5 UA ProteinNegative UA GlucoseNegative UA KetonesNegative UA BiliNegative UA BloodTrace UA Urobilinogen0.2 UA NitriteNegative UA Leuk EstNegative UA RBC0-2 UA WBCNone Seen UA BacteriaNone Seen UA Sq EpiNone Seen ASSESSMENT AND PLAN: _ HISTORY OF PRESENT ILLNESS: _ Patient is a 41 AAF with 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 Endocrine was consulted for evaluation of what was thought to be a pituitary mass in regards to possible hormonal dysfunction, now clarified as a menigioma. Suprasellar menigioma -Based off HPI, patient originally thought to have non-functional pituitiary macroadenoma with compressive sx -CT Head 04/16/16 shows size 26 x 20 x 25 mm ---> MRI Brain 01/02/17 shows size 27 x 25 x 30 mm -Neurosurgery consulted - No s/sx pituitary apoplex and mass unlikely c/u for seziure, management pending w/u -Opthalmology consulted - Recommend surgical resection to preserve vision of L eye, R eye vision does not seem salvageable at this point -Neurology consulted - breakthrough seizure 2/2 topomax compliance, recommend Keppra load and cont 500 BID; Meurosurgery eval for possible decompression to preserve L eye vision/possible R eye vision salvage -TFT's wnl: TSH 0.673, fT4 1.01 -Gonadotropins wnl: FSH 4.2, LH 2.42 -Prolactin wnl: 9.7 (r/o prolactinoma) -Cortisol wnl: 5.6 -ACTH <5 (suppressed for morning level) and Cortisol 5.6 (increased >1.8 for morning level) likely 2/2 administation of Dexamethasone at OSH -Growth Hormone levels pending -Per neurosurgery - pt likely with sellar meningioma, will be discharged with follow up on Thursday for further evaluation and surgical managment discussion. Patient will be discharged on 4mg PO Decadron BID. Endocrine to follow up when patient accepted back for surgery inpatient. -Will continue to follow labs, but as patient now diagnosed with suprasellar meningioma per Neurosurgery, non-hormone producing tumor so will not expect to see any hormonal changes Patient seen and case discussed with Dr. Marguerite Shelby MD Internal Medicine-Prelim PGY1 [phone] Pager #[phone] Endocrine Attending Teaching Note: I have interviewed and examined the patient, and I have reviewed the resident's note and agree with the clinical findings, assessment, and plan. I have discussed the case with Dr. Shelby. We were consulted for suprasellar mass complicated by seizure disorder and optic nerve involvement. I have viewed the MRI images. She states that this was a meningioma on prior resection in 2008. She is clinically and biochemically euhormonal except for low ACTH/Cortisol levels that are explained by prior dexamethasone Rx. She is having regular cycles and PRL is normal. No evidence of DI. She will be readmitted for surgery at a later date and I have reviewed with her possible hormonal issues that may arise at the time of surgery and would be happy to follow her on readmission. Thank you for the consultation. No need for further hormonal evaluation or treatment at this time. She was counseled on not driving and taking anticonvulsants.
--- OUTSIDE RECORDS SUMMARY | 2018-04-11 21:49 | XMS REPORT | CCD ---
Author Author [facility] Organization [facility] Address Unknown Phone Unavailable Care Team Providers Care Director Of Counseling Name Role Phone Juan Luis Espinal CP Allergies, Adverse Reactions, Alerts Substance Reaction Status NKDA Active Problem List Condition Effective Dates Status Brain tumor Active Medications Medication Instructions Start Date End Date Status ketorolac 30 mg, Route: IVP, Drug form: INJ, 06/23/2013 06/23/2013 Completed ONCE, kg, Priority: STAT, Start date: 06/23/13 0:13:00, Stop date: 06/23/13 0:13:00 Reglan 20 mg, Route: IV, ONCE, kg, Start 06/23/2013 06/23/2013 Completed date: 06/23/13 0:13:00, Stop date: 06/23/13 0:13:00 Benadryl 25 mg, Route: IVP, ONCE, kg, 06/23/2013 06/23/2013 Completed Priority: STAT, Start date: 06/23/13 0:13:00, Stop date: 06/23/13 0:13:00 Sodium Chloride 0.9% 1,000 mL, Rate: 1,000 ml/hr, Infuse 06/23/2013 Completed (Bolus) IV 1000 mL over: 1 hr, Route: IV, Total Volume: 1,000, Priority: STAT, Start date: 06/23/13 0:13:00, Duration: 1 doses or times, Stop date: 06/23/13 1:12:00, Bolus Dose Bolus Dose acetaminophen-hydroc 1 tab, PO, Q4H, PRN, 12 tab, for 06/23/2013 Ordered odone 325 mg-5 mg pain, Substitution Allowed, oral tablet Maintenance, TAB Vital Signs Most recent to oldest [Reference Range]: 1 2 3 Temperature Oral [96.4-99.1 DegF] 98.4 DegF (06/23/2013 02:15:00) 98.8 DegF (06/22/2013 23:09:00) Systolic Blood Pressure [90-140 mmHg] 109 mmHg (06/23/2013 02:15:00) 113 mmHg (06/23/2013 01:45:00) 104 mmHg (06/23/2013 00:42:00) Diastolic Blood Pressure [60-90 mmHg] 71 mmHg (06/23/2013 02:15:00) 71 mmHg (06/23/2013 01:45:00) 70 mmHg (06/23/2013 00:42:00) Respiratory Rate [14-20 BRMIN] 16 BRMIN (06/23/2013 02:15:00) 18 BRMIN (06/22/2013 23:09:00) Peripheral Pulse Rate [60-100 bpm] 83 bpm (06/23/2013 02:15:00) 84 bpm (06/22/2013 23:09:00) Results CHEMISTRY Most recent to oldest [Reference Range]: 1 Sodium Lvl [135-145 mEq/L] 141 mEq/L (06/23/2013 00:24:00) Potassium Lvl [3.5-5.1 mEq/L] 3.8 mEq/L (06/23/2013 00:24:00) Chloride Lvl [95-109 mEq/L] 105 mEq/L (06/23/2013 00:24:00) CO2 [24-32 mEq/L] 29 mEq/L (06/23/2013 00:24:00) AGAP [10.0-20.0 mEq/L] 10.8 mEq/L (06/23/2013 00:24:00) Creatinine Lvl [0.5-1.4 mg/dL] 0.9 mg/dL (06/23/2013 00:24:00) eGFR 93 mL/min/1.73m2 1 *NA* (06/23/2013 00:24:00) BUN [7-22 mg/dL] 12 mg/dL (06/23/2013 00:24:00) Glucose Lvl [70-99 mg/dL] 82 mg/dL 2 (06/23/2013 00:24:00) Calcium Lvl [8.5-10.5 mg/dL] 8.4 mg/dL *LOW* (06/23/2013 00:24:00) S Preg [Negative] Negative (06/23/2013 00:24:00) 1Result Comment: The eGFR is calculated using [...] should be multiplied by the estimated BMI. 2Interpretive Data: Adult reference range values reflect the clinical guidelines of the [place] [employer]. HEMATOLOGY Most recent to oldest [Reference Range]: 1 WBC [3.7-10.4 K/CMM] 7.8 K/CMM (06/23/2013 00:24:00) RBC [4.20-5.40 M/CMM] 4.35 M/CMM (06/23/2013 00:24:00) Hgb [12.0-16.0 g/dL] 12.8 g/dL (06/23/2013:24:00) Hct [36.0-48.0 %] 39.7 % (06/23/2013 00:24:00) MCV [81.0-99.0 fL] 91.3 fL (06/23/2013 00:24:00) MCH [27.0-31.0 pg] 29.4 pg (06/23/2013 00:24:00) MCHC [32.0-36.0 g/dL] 32.2 g/dL (06/23/2013:24:00) RDW [11.5-14.5 %] 13.6 % (06/23/2013 00:24:00) Platelet [133-450 K/CMM] 292 K/CMM (06/23/2013 00:24:00) MPV [7.4-10.4 fL] 7.8 fL (06/23/2013 00:24:00) Segs [45.0-75.0 %] 41.8 % *LOW* (06/23/2013 00:24:00) Lymphocytes [20.0-40.0 %] 46.6 % *HI* (06/23/2013 00:24:00) Monocytes [2.0-12.0 %] 8.6 % (06/23/2013 00:24:00) Eosinophils [0.0-4.0 %] 2.3 % (06/23/2013 00:24:00) Basophils [0.0-1.0 %] 0.7 % (06/23/2013 00:24:00) Segs-Bands # [1.5-8.1 K/CMM] 3.2 K/CMM (06/23/2013 00:24:00) Lymphocytes # [1.0-5.5 K/CMM] 3.6 K/CMM (06/23/2013 00:24:00) Monocytes # [0.0-0.8 K/CMM] 0.7 K/CMM (06/23/2013 00:24:00) Eosinophils # [0.0-0.5 K/CMM] 0.2 K/CMM (06/23/2013 00:24:00) Basophils # [0.0-0.2 K/CMM] 0.1 K/CMM (06/23/2013 00:24:00) PT [12.0-14.7 seconds] 12.4 seconds (06/23/2013 00:24:00) INR [0.85-1.17] 0.90 3 (06/23/2013 00:24:00) PTT [22.9-35.8 seconds] 29.2 seconds 4 (06/23/2013 00:24:00) 3Interpretive Data: RECOMMENDED RANGES FOR PROTIME INR: 2.0-3.0 for most medical and surgical thromboembolic states. 2.5-3.5 for artificial heart valves and recurrent embolism. INR SHOULD BE USED ONLY FOR PATIENTS ON STABLE ANTICOAGULANT THERAPY. 4Interpretive Data: Heparin Therapeutic Range: 57 - 92 Seconds Procedures Procedures Date Related Diagnosis Tumor destruction
--- OUTSIDE RECORDS SUMMARY | 2018-04-11 21:49 | XMS REPORT | Summary of Care ---
Author Author [facility] Organization [facility] Address Unknown Phone Unavailable Encounter HQ Mariselantr_genaro(FIN) [id number] Date(s): 09/16/17 - 09/17/17 [facility] [address], [address] [place] [address] [phone] Vital Signs No data available for this section Problem List Condition Effective Dates Status Health Status Informant Brain Active tumor(Confirmed) GERD Active (gastroesophageal reflux disease)(Confirmed) Obesity(Confirmed) Active Obesity (BMI Active 30.0-34.9)(Confirmed )1 1BMI-33.3 Allergies, Adverse Reactions, Alerts Substance Reaction Severity Status NKDA Active Medications No data available for this section Results No data available for this section Immunizations Given and Recorded Vaccine Date Status Refusal Reason pneumococcal 23-valent vaccine 01/02/17 Given Procedures Procedure Date Related Diagnosis Body Site Cerebral angiogram Craniotomy Tumor destruction Social History Social History Type Response Alcohol Current, Type Wine. Frequency: 1-2 times per week. Alcohol use interferes with work or home: No. Drinks more than intended: No. Others hurt by drinking: No. Ready to change: No. Household alcohol concerns: No. Smoking Status Former smoker; Type: Cigarettes; Previous treatment: None; Ready to change: Yes; Concerns about tobacco use in household: No; Exposure to Tobacco Smoke None; Cigarette Smoking Last 365 Days Yes; Reg Smoking Cessation Counseling Yes; Number of years: 10; Assessment and Plan No data available for this section
--- OUTSIDE RECORDS SUMMARY | 2018-04-11 21:49 | XMS REPORT | Summary of Care ---
Author Author [facility]surgery [facility] Organization [facility] Address Unknown Phone Unavailable Encounter HQ Encntr_alikassandra(FIN) [phone] Date(s): 11/03/17 - 11/04/17 [facility] Neurosurgery [facility] [address], [address] [place], [place] [address] [phone] Vital Signs No data available for this [...]
--- OUTSIDE RECORDS SUMMARY | 2018-04-11 21:49 | XMS REPORT | Summary of Care ---
Author Author [facility] [place] Organization [facility] [place] Address Unknown Phone Unavailable Encounter TRISHA Collins(RAZA) [phone] Date(s): 09/25/17 - 09/25/17 [facility] [place] [address] [place] [address]- [phone] Discharge Disposition: Home or Self Care Attending Physician: Radha Spencer NP Vital Signs No data available for this [...]
--- OUTSIDE RECORDS SUMMARY | 2018-04-11 21:49 | XMS REPORT | Summary of Care ---
Author Author [facility] Organization [facility] Address Unknown Phone Unavailable Encounter TRISHA Collins(RAZA) [id number] Date(s): 02/03/17 - 02/04/17 [facility] [address] [facility] [employer] [place] [address]- Discharge Disposition: Home or Self Care Attending Physician: Sawyer Brown MD Admitting Physician: Sawyer Brown MD Referring Physician: Sawyer Brown MD Vital Signs 1 2 3 Most recent to oldest [Reference Range]: 172.72 cm (01/29/17 2:48 PM) Height 97.8 DegF (02/04/17 7:50 AM) 98.1 DegF (02/04/17 3:59 AM) 98.0 DegF (02/03/17 11:47 PM) Temperature Oral [96.4-99.1 DegF] 122/78 mmHg (02/04/17 7:50 AM) 127/79 mmHg (02/04/17 3:59 AM) 125/83 mmHg (02/03/17 11:47 PM) Blood Pressure [90-140/60-90 mmHg] 18 BRMIN (02/04/17 7:50 AM) 16 BRMIN (02/04/17 3:59 AM) 16 BRMIN (02/03/17 11:47 PM) Respiratory Rate [14-20 BRMIN] 72 bpm (02/04/17 7:50 AM) 67 bpm (02/04/17 3:59 AM) 65 bpm (02/03/17 11:47 PM) Peripheral Pulse Rate [60-100 bpm] 102 kg (02/04/17 7:29 AM) 99.54 kg (02/03/17 1:28 PM) 99.545 kg (01/29/17 2:48 PM) Weight 33.37 m2 (01/29/17 2:48 PM) Body Mass Index Problem List Condition Effective Dates Status Health Status Informant Brain Active tumor(Confirmed) GERD Active (gastroesophageal reflux disease)(Confirmed) Obesity(Confirmed) Active Obesity (BMI Active 30.0-34.9)(Confirmed )1 1BMI-33.3 Allergies, Adverse Reactions, Alerts Substance Reaction Severity Status NKDA Active Medications acetaminophen-hydrocodone 325 mg-10 mg oral tablet 1 tab, Route: PO, Drug Form: TAB, Dosing Weight 99.545, kg, Q4H, PRN Pain Score 4-6, Start date: 02/03/17 6:26:00 CDT, Duration: 30 day, Stop date: 03/05/17 6: 25:00 CDT Notes: Do not exceed 4gm/day of acetaminophen. (Same as: Lagrange 325/10) Start Date: 02/03/17 Stop Date: 02/04/17 Status: Discontinued acetaminophen-hydrocodone 325 mg-5 mg oral tablet 1 tab, Route: PO, Drug Form: TAB, Dosing Weight 99.545, kg, Q4H, PRN Pain Score 1-3, Start date: 02/03/17 6:26:00 CDT, Duration: 30 day, Stop date: 03/05/17 6: 25:00 CDT Notes: (Same as: Lagrange 325/5) Do not exceed 4gm/day of acetaminophen. Start Date: 02/03/17 Stop Date: 02/04/17 Status: Discontinued apixaban 10 mg, 2 tab, Route: PO, Drug form: TAB, Q12H, Dosing Weight 99.54, kg, Start date: 02/03/17 21:00:00 CDT, Duration: 7 day, Stop date: 02/10/17 9:00:00 CDT Notes: Same as: Nazia Start Date: 02/03/17 Stop Date: 02/04/17 Status: Discontinued apixaban 5 mg oral tablet 10 mg=2 tab, PO, BID, # 24 tab, 0 Refill(s) Start Date: 02/04/17 Stop Date: 02/10/17 Status: Ordered apixaban 5 mg oral tablet 10 mg=2 tab, PO, Q12H, # 28 tab, 0 Refill(s) Start Date: 02/04/17 Stop Date: 02/04/17 Status: Deleted ceFAZolin (ANES) Route: IV, Drug form: INJ, ONCE, Stop date: 02/03/17 10:05:00 CDT Start Date: 02/03/17 Stop Date: 02/03/17 Status: Completed ceFAZolin (ANES) Route: IV, Drug form: INJ, ONCE, Stop date: 02/03/17 10:38:00 CDT Start Date: 02/03/17 Stop Date: 02/03/17 Status: Completed ceFAZolin (SCIP) + sodium chloride 0.9% INJ 100 mL 2 gm, Route: IVPB, ABXQ8H, Dosing Weight 99.545, kg, Start date: 02/03/17 8:00: 00 CDT, Duration: 3 doses or times, Stop date: 02/04/17 0:00:00 CDT Notes: (Same As: John Jensenfzol) MEDICATION WASTE Product Size: 1000 mgProduct Wasted: ___ mg Start Date: 02/03/17 Stop Date: 02/04/17 Status: Completed dexamethasone 4 mg, 1 mL, Route: IV, Drug form: INJ, Q6H, Dosing Weight 99.545, kg, Start date : 02/03/17 12:00:00 CDT, Duration: 30 day, Stop date: 03/05/17 6:00:00 CDT Notes: Concentration: 4mg/ml Start Date: 02/03/17 Stop Date: 02/03/17 Status: Canceled Dextrose 50% Syringe 6.25 gm, 12.5 mL, Route: IVP, Drug Form: INJ, Dosing Weight 99.545, kg, PRN, PRN Abnormal Lab Result, Start date: 02/03/17 6:26:00 CDT, Duration: 30 day, Stop date: 03/05/17 6:25:00 CDT Start Date: 02/03/17 Stop Date: 02/03/17 Status: Discontinued Dextrose 50% Syringe 12.5 gm, 25 mL, Route: IVP, Drug Form: INJ, Dosing Weight 99.545, kg, PRN, PRN Abnormal Lab Result, Start date: 02/03/17 6:26:00 CDT, Duration: 30 day, Stop date: 03/05/17 6:25:00 CDT Start Date: 02/03/17 Stop Date: 02/03/17 Status: Discontinued Dextrose 50% Syringe 25 gm, 50 mL, Route: IVP, Drug Form: INJ, Dosing Weight 99.545, kg, PRN, PRN Abnormal Lab Result, Start date: 02/03/17 6:26:00 CDT, Duration: 30 day, Stop date: 03/05/17 6:25:00 CDT Start Date: 02/03/17 Stop Date: 02/03/17 Status: Discontinued docusate 100 mg, 1 cap, Route: PO, Drug form: CAP, Q12H, Dosing Weight 99.545, kg, Start date: 02/03/17 9:00:00 CDT, Duration: 30 day, Stop date: 03/04/17 21:00:00 CDT Notes: (Same as: Colace) (Do Not Crush) Start Date: 02/03/17 Stop Date: 02/04/17 Status: Discontinued famotidine 20 mg, 2 mL, Route: IVP, Drug form: INJ, Q12H, Dosing Weight 99.545, kg, Start date: 02/03/17 9:00:00 CDT, Duration: 30 day, Stop date: 03/04/17 21:00:00 CDT Notes: (Same as: Pepcid)Can be dilute in 5-10cc NS IVP: Slow IV push over at least 2 minutes. Start Date: 02/03/17 Stop Date: 02/03/17 Status: Discontinued fentaNYL (ANES) Route: IV, Drug form: INJ, ONCE, Stop date: 02/03/17 10:05:00 CDT Start Date: 02/03/17 Stop Date: 02/03/17 Status: Completed heparin 5000 units/mL injectable solution 5,000 unit, 1 mL, Route: SUB-Q, Drug form: INJ, Q8H, Dosing Weight 99.545, kg, Start date: 02/03/17 16:00:00 CDT, Duration: 30 day, Stop date: 03/05/17 8:00: 00 CDT Notes: porcine heparin Start Date: 02/03/17 Stop Date: 02/03/17 Status: Discontinued hydromorphone 0.5 mg, 0.25 mL, Route: IV, Drug form: INJ, Q3H, Dosing Weight 99.545, kg, PRN Pain Score 7-10, Start date: 02/03/17 6:26:00 CDT, Duration: 30 day, Stop date: 03/05/17 6:25:00 CDT Notes: Same as: Dilaudid Start Date: 02/03/17 Stop Date: 02/04/17 Status: Discontinued insulin regular 100 units/mL human recombinant 7 unit, 0.07 mL, Route: SUB-Q, Drug form: SOLN, PRN, Dosing Weight 99.545, kg, PRN Abnormal Lab Result, Start date: 02/03/17 6:26:00 CDT, Duration: 30 day, Stop date: 03/05/17 6:25:00 CDT Notes: (Same as: Humulin R) Roll in palms of hands gently; Do not shake vigorously. "single patient use only"(Restricted to patients requiring a dose > 60 units)WASTE: F/P - Black; E - Municipal Trash Bin Stable for 28 days at room temperatureExpires in days from Date Start Date: 02/03/17 Stop Date: 02/03/17 Status: Discontinued insulin regular 100 units/mL human recombinant 5 unit, 0.05 mL, Route: SUB-Q, Drug form: SOLN, PRN, Dosing Weight 99.545, kg, PRN Abnormal Lab Result, Start date: 02/03/17 6:26:00 CDT, Duration: 30 day, Stop date: 03/05/17 6:25:00 CDT Notes: (Same as: Humulin R) Roll in palms of hands gently; Do not shake vigorously. "single patient use only"(Restricted to patients requiring a dose > 60 units)WASTE: F/P - Black; E - Municipal Trash Bin Stable for 28 days at room temperatureExpires in days from Date Start Date: 02/03/17 Stop Date: 02/03/17 Status: Discontinued insulin regular 100 units/mL human recombinant 3 unit, 0.03 mL, Route: SUB-Q, Drug form: SOLN, PRN, Dosing Weight 99.545, kg, PRN Abnormal Lab Result, Start date: 02/03/17 6:26:00 CDT, Duration: 30 day, Stop date: 03/05/17 6:25:00 CDT Notes: (Same as: Humulin R) Roll in palms of hands gently; Do not shake vigorously. "single patient use only"(Restricted to patients requiring a dose > 60 units)WASTE: F/P - Black; E - Municipal Trash Bin Stable for 28 days at room temperatureExpires in days from Date Start Date: 02/03/17 Stop Date: 02/03/17 Status: Discontinued levETIRAcetam 1,000 mg, 2 tab, Route: PO, Drug form: TAB, Q12H, Dosing Weight 99.545, kg, Start date: 02/03/17 9:00:00 CDT, Duration: 30 day, Stop date: 03/04/17 21:00: 00 CDT Notes: (Same as:Cheri) Start Date: 02/03/17 Stop Date: 02/04/17 Status: Discontinued levETIRAcetam 500 mg oral tablet 1,000 mg=2 tab, PO, Q12H, 0 Refill(s) Start Date: 02/04/17 Status: Ordered lidocaine (ANES) Route: IV, Drug form: INJ, ONCE, Stop date: 02/03/17 10:05:00 CDT Start Date: 02/03/17 Stop Date: 02/03/17 Status: Completed LR 1000 mL INJ (ANES) Route: IV, Total Volume: 1,000, Start date: 02/03/17 7:47:00 CDT, Stop date: 02/16 8:47:00 CDT Start Date: 02/03/17 Stop Date: 02/03/17 Status: Completed metoclopramide 10 mg, 2 mL, Route: IVP, Drug form: INJ, Q6H, Dosing Weight 99.545, kg, PRN as needed for nausea/vomiting, Start date: 02/03/17 6:26:00 CDT, Duration: 48 hr, Stop date: 02/05/17 6:25:00 CDT Notes: (Same as: Reglan) Start Date: 02/03/17 Stop Date: 02/04/17 Status: Discontinued naloxone (ANES) Route: IV, Drug form: INJ, ONCE, Stop date: 02/03/17 10:05:00 CDT Start Date: 02/03/17 Stop Date: 02/03/17 Status: Completed niCARdipine (ANES) Route: IV, Drug form: INJ, ONCE, Stop date: 02/03/17 10:38:00 CDT Start Date: 02/03/17 Stop Date: 02/03/17 Status: Completed ondansetron 4 mg, 2 mL, Route: IVP, Drug form: INJ, Q8H, Dosing Weight 99.545, kg, PRN Nausea & Vomiting, Start date: 02/03/17 6:26:00 CDT, Duration: 30 day, Stop date : 03/05/17 6:25:00 CDT Notes: (Same as: Mily) MEDICATION WASTE Product Size: 4 mgProduct Wasted: ___ mg Start Date: 02/03/17 Stop Date: 02/04/17 Status: Discontinued ondansetron (ANES) Route: IV, Drug form: INJ, ONCE, Stop date: 02/03/17 10:05:00 CDT Start Date: 02/03/17 Stop Date: 02/03/17 Status: Completed propofol (ANES) Route: IV, Drug form: INJ, ONCE, Stop date: 02/03/17 10:05:00 CDT Start Date: 02/03/17 Stop Date: 02/03/17 Status: Completed remifentanil (ANES) Route: IV, Drug form: INJ, ONCE, Stop date: 02/03/17 10:38:00 CDT Start Date: 02/03/17 Stop Date: 02/03/17 Status: Completed remifentanil (ANES) (ANES) Route: IV, Drug form: INJ, Start date: 02/03/17 7:49:00 CDT, Stop date: 8:49:00 CDT Start Date: 02/03/17 Stop Date: 02/03/17 Status: Completed rocuronium (ANES) Route: IV, Drug form: INJ, ONCE, Stop date: 02/03/17 10:05:00 CDT Start Date: 02/03/17 Stop Date: 02/03/17 Status: Completed Saline Flush 0.9% 10 ml, Route: IVP, Drug Form: INJ, Dosing Weight 99.545, kg, Q12H, Start date: 02/03/17 9:00:00 CDT, Duration: 30 day, Stop date: 03/04/17 21:00:00 CDT Notes: Same as: BD Posiflush Sterile Start Date: 02/03/17 Stop Date: 02/04/17 Status: Discontinued Saline Flush 0.9% 10 ml, Route: IVP, Drug Form: INJ, Dosing Weight 99.545, kg, PRN, PRN Line Flush , Start date: 02/03/17 6:26:00 CDT, Duration: 30 day, Stop date: 03/05/17 6:25: 00 CDT Notes: Same as: BD Posiflush Sterile Start Date: 02/03/17 Stop Date: 02/04/17 Status: Discontinued senna 8.6 mg, 1 tab, Route: PO, Drug Form: TAB, Dosing Weight 99.545, kg, Q12H, Start date: 02/03/17 9:00:00 CDT, Duration: 30 day, Stop date: 03/04/17 21:00:00 CDT Notes: (Same as: Senokot) Start Date: 02/03/17 Stop Date: 02/04/17 Status: Discontinued Tylenol with Codeine #3 oral tablet 1 tab, PO, Q6H, PRN Pain, X 5 day, # 20 tab, 0 Refill(s) Start Date: 02/04/17 Stop Date: 02/09/17 Status: Ordered Visipaque 320mg/ml 85 mL, Route: IVP, Drug Form: SOLN, Dosing Weight 99.545, kg, ONCALL, STAT, Start date: 02/03/17 10:51:00 CDT, Duration: 1 doses or times, Dose=2.2ml/kg, Max godm=104og -- "To be infused by Radiology Staff ONLY" Start Date: 02/03/17 Stop Date: 02/03/17 Status: Completed Results BLOOD BANK RESULTS Most recent to 1 oldest [Reference Range]: ABO/Rh A POS *Unknown* (02/03/17 6:55 AM) Antibody Scrn Negative (02/03/17 6:55 AM) ELECTROLYTES Most recent to 1 oldest [Reference Range]: Sodium Lvl [135-145 140 mEq/L mEq/L] (02/03/17 2:14 PM) Potassium Lvl 3.7 mEq/L [3.5-5.1 mEq/L] (02/03/17 2:14 PM) Chloride Lvl [95-109 103 mEq/L mEq/L] (02/03/17 2:14 PM) CO2 [24-32 mEq/L] 25 mEq/L (02/03/17 2:14 PM) AGAP [10.0-20.0 15.7 mEq/L mEq/L] (02/03/17 2:14 PM) CHEM PANEL Most recent to 1 oldest [Reference Range]: Creatinine Lvl 0.69 mg/dL [0.50-1.40 mg/dL] (02/03/17 2:14 PM) eGFR 123 mL/min/1.73m2 1 *NA* (02/03/17 2:14 PM) BUN [7-22 mg/dL] 11 mg/dL (02/03/17 2:14 PM) Glucose Lvl [70-99 88 mg/dL mg/dL] (02/03/17 2:14 PM) Calcium Lvl 7.9 mg/dL [8.5-10.5 mg/dL] *LOW* (02/03/17 2:14 PM) 1Result Comment: The eGFR is calculated [...] should be multiplied by the estimated BMI. ANEMIA STUDY Most recent to 1 oldest [Reference Range]: Vitamin B12 Lvl 547 pg/mL [254-1320 pg/mL] (02/03/17 9:15 PM) IMMUNOLOGY Most recent to 1 oldest [Reference Range]: Treponemal Scr [Non Non Reactive Reactive] *NA* (02/03/17 9:15 PM) IRVING [Negative] Negative (02/03/17 9:14 PM) C3 Complement 158 mg/dL [88-201 mg/dL] (02/03/17 9:15 PM) C4 Complement [16-47 31 mg/dL mg/dL] (02/03/17 9:15 PM) DNA Ab (DS) Negative [Negative] (02/03/17 9:14 PM) SS-A (Ro) Ab [<=0.9 <0.2 AI AI] (02/03/17 9:14 PM) SS-B (La) Ab [<=0.9 <0.2 AI AI] (02/03/17 9:14 PM) C-ANCA [Negative] Negative (02/03/17 9:14 PM) P-ANCA [Negative] Negative (02/03/17 9:14 PM) CRP [<=2.9 mg/L] 10.7 mg/L *HI* (02/03/17 9:15 PM) HIV 1/2 Ab Negative [Negative] *NA* (02/03/17 9:15 PM) Cardiolipin IgA 1.4 APL-U/mL [<=19.9 APL-U/mL] (02/03/17 9:14 PM) Cardiolipin IgG <1.6 GPL-U/mL [<=19.9 GPL-U/mL] (02/03/17 9:14 PM) Cardiolipin IgM 0.5 MPL-U/mL [<=19.9 MPL-U/mL] (02/03/17 9:14 PM) Beta2-Glycoprotein 0.2 unit/mL IgM [<=19.9 unit/mL] (02/03/17 9:14 PM) Beta2-Glycoprotein <1.4 unit/mL IgG [<=19.9 unit/mL] (02/03/17 9:14 PM) Beta2-Glycoprotein 0.6 unit/mL IgA [<=19.9 unit/mL] (02/03/17 9:14 PM) Homocyst Tot 12.0 uMol/L [3.7-13.9 uMol/L] (02/03/17 9:15 PM) Hgb S % [0.0-0.0 %] 0.0 % (02/03/17 9:14 PM) Hgb A % [95.8-97.8 97.1 % %] (02/03/17 9:14 PM) Hgb A2 % [2.2-3.2 %] 2.7 % (02/03/17 9:14 PM) Hgb F % [0.0-1.0 %] 0.2 % (02/03/17 9:14 PM) Hgb C % [0.0-0.0 %] 0.0 % (02/03/17 9:14 PM) Hgb Interp No abnormal hemoglobins are detected. This is a normal hemoglobin electrophoresis pattern. The electronic medical record has been reviewed for relevant medical information. I have personally reviewed the test results and concur with the resident's interpretation. CPT 43609-PI *NA* (02/03/17 9:14 PM) HEMATOLOGY Most recent to 1 oldest [Reference Range]: WBC [3.7-10.4 K/CMM] 8.0 K/CMM (02/03/17 2:14 PM) RBC [4.20-5.40 4.06 M/CMM M/CMM] *LOW* (02/03/17 2:14 PM) Hgb [12.0-16.0 g/dL] 11.9 g/dL *LOW* (02/03/17 2:14 PM) Hct [36.0-48.0 %] 35.6 % *LOW* (02/03/17 2:14 PM) MCV [80.0-98.0 fL] 87.7 fL (02/03/17 2:14 PM) MCH [27.0-31.0 pg] 29.2 pg (02/03/17 2:14 PM) MCHC [32.0-36.0 33.3 g/dL g/dL] (02/03/17 2:14 PM) RDW [11.5-14.5 %] 14.2 % (02/03/17 2:14 PM) Platelet [133-450 328 K/CMM K/CMM] (02/03/17 2:14 PM) MPV [7.4-10.4 fL] 8.0 fL (02/03/17 2:14 PM) Segs [45.0-75.0 %] 42.4 % *LOW* (02/03/17 2:14 PM) Lymphocytes 48.4 % [20.0-40.0 %] *HI* (02/03/17 2:14 PM) Monocytes [2.0-12.0 7.9 % %] (02/03/17 2:14 PM) Eosinophils [0.0-4.0 0.7 % %] (02/03/17 2:14 PM) Basophils [0.0-1.0 0.6 % %] (02/03/17 2:14 PM) Segs-Bands # 3.4 K/CMM [1.5-8.1 K/CMM] (02/03/17 2:14 PM) Lymphocytes # 3.9 K/CMM [1.0-5.5 K/CMM] (02/03/17 2:14 PM) Monocytes # [0.0-0.8 0.6 K/CMM K/CMM] (02/03/17 2:14 PM) Eosinophils # 0.1 K/CMM [0.0-0.5 K/CMM] (02/03/17 2:14 PM) Sed Rate [0-20 4 mm/hr mm/hr] (02/03/17 9:14 PM) PT [12.0-14.7 14.0 seconds seconds] (02/03/17 2:14 PM) INR [0.85-1.17] 1.06 (02/03/17 2:14 PM) F2 Mutation PCR Negative (02/03/17 9:14 PM) F2 Mut Interp FACTOR II PT: Negative INTERPRETATION: Molecular analysis for the Factor II (Prothrombin) [id number]>[id number] mutation was negative. Other causes of elevated prothrombin levels and hereditary forms of venous thrombosis are not ruled out. Final diagnosis requires correlation with clinical history and other pertinent laboratory findings. Where appropriate, medical consultation and genetic counseling should be offered to inform and explain the risk implications and genetic implications of these test results. ASSAY LIMITATIONS: The assay uses the FDA-cleared Veronica Factor II (Prothrombin) [id number] IVD (Polymerase chain reaction/FRET detection)kit, 8020 MediaA Pure LC Instrument and the Veronica LightCycler 1.2 Instrument. A 165-bp fragment of Factor II gene(FII) containing the Factor II [id number] sequence is amplified in the assay. The assay is designed to detect the [id number] mutation only. Other causes of elevated prothrombin levels and hereditary forms of venous thrombosis are not ruled out. However, the melting curve analysis may implicate the presence of a possible rare mutation at position 04771 (Further testing will be recommended in the report). A minimum detection level is 198 copies of Factor II per reaction. The level of agreement between the Factor II(Prothrombin) [id number] Kit and sequence analysis was 98.9%. The test result must be interpreted along with the patient's clinical history and revelant laboratory data. This assay has been validated by [facility]. *NA* (02/03/17 9:14 PM) F5 Leiden PCR Negative (02/03/17 9:14 PM) F5 Leiden Intrp FACTOR V LEIDEN: Negative INTERPRETATION: Molecular analysis for the Factor V Leiden, R506Q mutation was negative. Other causes of activated protein C resistance and hereditary forms of venous thrombosis are not ruled out. Final diagnosis requires correlation with clinical history and other pertinent laboratory findings. Where appropriate, medical consultation and/or genetic counseling should be offered to inform and explain the risk implications and genetic implications of these test results. ASSAY LIMITATIONS: The assay uses the FDA-cleared Veronica Factor V Leiden IVD(Poymerase chain reaction/FRET detection)kit, Veronica rankurA Pure LC Instrument and the Veronica LightCycler 1.2 [...] data. This assay has been validated by [facility]. *NA* (02/03/17 9:14 PM) Factor VIII [50-242 207 % %] (02/03/17 9:14 PM) AT III Func [77-140 105 % %] (02/03/17 9:14 PM) PTT [22.9-35.8 29.7 seconds seconds] (02/03/17 2:14 PM) dRVV Ratio [<=1.20] 0.79 (02/03/17 9:14 PM) Hex Phos N Negative [Negative] (02/03/17 9:14 PM) Lup Interp Negative for lupus anticoagulant with all tests performed (dRVVT , and hexagonal phospholipid neutralization). CPT: 24198 *NA* (02/03/17 9:14 PM) Protein C Func 117 % [72-147 %] (02/03/17 9:14 PM) Protein S Func 73 % [54-137 %] (02/03/17 9:14 PM) Immunizations Given and Recorded Vaccine Date Status [...]
--- OUTSIDE RECORDS SUMMARY | 2018-04-11 21:49 | XMS REPORT | Summary of Care ---
Author Author [facility] Organization [facility] Address Unknown Phone Unavailable Encounter TRISHA Collins(RAZA) [id number] Date(s): 01/27/17 - 01/27/17 [facility] [address] Discharge Disposition: Home or Self Care Attending Physician: Ray Pratt MD Referring Physician: Ray Pratt MD Vital Signs 1 2 3 Most recent to oldest [Reference Range]: 171.45 cm (01/27/17 6:58 AM) Height 92/61 mmHg (01/27/17 3:30 PM) 96/62 mmHg (01/27/17 3:00 PM) 93/60 mmHg (01/27/17 2:45 PM) Blood Pressure [90-140/60-90 mmHg] 18 BRMIN (01/27/17 3:30 PM) 15 BRMIN (01/27/17 3:00 PM) 14 BRMIN (01/27/17 2:45 PM) Respiratory Rate [14-20 BRMIN] 94.545 kg (01/27/17 6:58 AM) Weight 32.16 m2 (01/27/17 6:58 AM) Body Mass Index Problem List Condition Effective Dates Status Health Status Informant Brain Active tumor(Confirmed) GERD Active (gastroesophageal reflux disease)(Confirmed) Obesity(Confirmed) Active Obesity (BMI Active 30.0-34.9)(Confirmed )1 1BMI-33.3 Allergies, Adverse Reactions, Alerts Substance Reaction Severity Status NKDA Active Medications ibuprofen 400 mg oral tablet 600 mg, Route: PO, ONCE, Dosing Weight 94.545, kg, Start date: 01/27/17 16:13: 00 CDT, Stop date: 01/27/17 16:13:00 CDT Start Date: 01/27/17 Stop Date: 01/27/17 Status: Completed lidocaine 1% 1 ml, Route: SUB-Q, Dosing Weight 94.545, kg, ONCE, Start date: 01/27/17 11:33: 00 CDT, Stop date: 01/27/17 11:33:00 CDT Start Date: 01/27/17 Stop Date: 01/27/17 Status: Completed nitroglycerin 200 microgram, Route: INTRAARTERIAL, ONCE, Dosing Weight 94.545, kg, Start date : 01/27/17 12:12:00 CDT, Stop date: 01/27/17 12:12:00 CDT Start Date: 01/27/17 Stop Date: 01/27/17 Status: Completed nitroglycerin 200 microgram, Route: INTRAARTERIAL, ONCE, Dosing Weight 94.545, kg, Start date : 01/27/17 12:08:00 CDT, Stop date: 01/27/17 12:08:00 CDT Start Date: 01/27/17 Stop Date: 01/27/17 Status: Completed Ofirmev 1,000 mg, Route: IV, Drug form: INJ, ONCE, Dosing Weight 94.545, kg, PRN Pain Score 1-3, for > or=50 kg, Start date: 01/27/17 14:10:00 CDT Start Date: 01/27/17 Stop Date: 01/27/17 Status: Completed Omnipaque 300 150 ml, Route: INTRAARTERIAL, Dosing Weight 94.545, kg, ONCE, Start date: 11:32:00 CDT, Stop date: 01/27/17 11:32:00 CDT Start Date: 01/27/17 Stop Date: 01/27/17 Status: Completed verapamil 5 mg, Route: INTRAARTERIAL, ONCE, Dosing Weight 94.545, kg, Start date: 12:15:00 CDT, Stop date: 01/27/17 12:15:00 CDT Start Date: 01/27/17 Stop Date: 01/27/17 Status: Completed Results URINE CHEM Most recent to 1 oldest [Reference Range]: U Preg [Negative] Negative (01/27/17 7:03 AM) Immunizations Given and Recorded Vaccine Date [...] Smoking Cessation Counseling No Assessment and Plan No data available for this section
--- OUTSIDE RECORDS SUMMARY | 2018-04-11 21:49 | XMS REPORT | Summary of Care ---
Author Author [facility] [facility] Address Unknown Phone Unavailable Encounter HQ Mariselantr_genaro(FIN) [phone] Date(s): 09/11/17 - 09/12/17 [facility] [place] [address], [address] [place] [phone] Vital Signs No data available for this [...]
--- OUTSIDE RECORDS SUMMARY | 2018-04-11 21:49 | XMS REPORT | Summary of Care ---
Author Author [facility] Organization [facility] Address Unknown Phone Unavailable Encounter HQ Dennis(RAZA) [id number] Date(s): 08/17/17 - 08/19/17 [facility] [address] [employer] provided by [employer] [place] [address]- Discharge Disposition: Home or Self Care Attending Physician: Sawyer Brown MD Admitting Physician: Sawyer Brown MD Referring Physician: Sawyer Brown MD Vital Signs 1 2 3 Most recent to oldest [Reference Range]: 172.72 cm (08/17/17 5:55 PM) 172.72 cm (08/12/17 12:33 PM) 172.72 cm (08/12/17 11:22 AM) Height 98.0 DegF (08/19/17 7:28 AM) 98.2 DegF (08/19/17 4:00 AM) 98.1 DegF (08/19/17 12:00 AM) Temperature Oral [96.4-99.1 DegF] 132/82 mmHg (08/19/17 7:28 AM) 146/85 mmHg *HI* (08/19/17 4:00 AM) 137/79 mmHg (08/19/17 12:00 AM) Blood Pressure [90-140/60-90 mmHg] 18 BRMIN (08/19/17 7:28 AM) 18 BRMIN (08/19/17 4:00 AM) 17 BRMIN (08/19/17 12:00 AM) Respiratory Rate [14-20 BRMIN] 72 bpm (08/19/17 7:28 AM) 75 bpm (08/19/17 4:00 AM) 71 bpm (08/19/17 12:00 AM) Peripheral Pulse Rate [60-100 bpm] 100 kg (08/17/17 5:55 PM) 100 kg (08/17/17 5:55 AM) 100.909 kg (08/12/17 11:22 AM) Weight 33.52 m2 (08/17/17 5:55 PM) 33.52 m2 (08/17/17 5:55 AM) 33.83 m2 (08/12/17 11:22 AM) Body Mass Index Problem List Condition Effective Dates Status Health Status Informant Brain Active tumor(Confirmed) GERD Active (gastroesophageal reflux disease)(Confirmed) Obesity(Confirmed) Active Obesity (BMI Active 30.0-34.9)(Confirmed )1 1BMI-33.3 Allergies, Adverse Reactions, Alerts Substance Reaction Severity Status NKDA Active Medications acetaminophen (ANES) Route: IV, Drug form: INJ, ONCE, Stop date: 08/17/17 13:22:00 CDT Start Date: 08/17/17 Stop Date: 08/17/17 Status: Completed acetaminophen-hydrocodone 325 mg-10 mg oral tablet 1 tab, PO, Q6H, PRN Pain Score 4-6, # 60 tab, 0 Refill(s) Start Date: 08/19/17 Stop Date: 09/02/17 Status: Ordered acetaminophen-hydrocodone 325 mg-10 mg oral tablet 1 tab, Route: PO, Drug Form: TAB, Dosing Weight 100, kg, Q4H, PRN Pain Score 4-6 , Start date: 08/17/17 15:08:00 CDT, Duration: 30 day, Stop date: 09/16/17 15:07 :00 MATERIAL DAMAGE ADJUSTER Notes: Do not exceed 4gm/day of acetaminophen. (Same as: [place] 325/10) Start Date: 08/17/17 Stop Date: 08/19/17 Status: Discontinued amLODIPine 5 mg, 1 tab, Route: PO, Drug form: TAB, Daily, Dosing Weight 100, kg, Priority: NOW, Start date: 08/18/17 13:27:00 CDT, Duration: 30 day, Stop date: 09/17/17 9: 00:00 MATERIAL DAMAGE ADJUSTER Notes: (Same as: Norvasc) Start Date: 08/18/17 Stop Date: 08/19/17 Status: Discontinued ANES dexamethasone 4 mg, 1 mL, Route: IVP, Drug form: INJ, ONCE, Dosing Weight 100, kg, PRN Nausea & Vomiting, Start date: 08/17/17 12:57:00 CDT Notes: Concentration: 4mg/ml Start Date: 08/17/17 Stop Date: 08/17/17 Status: Discontinued ANES flumazenil 0.2 mg, 2 mL, Route: IVP, Drug form: INJ, PRN, Dosing Weight 100, kg, PRN Benzodiazepine Reversal, Initial dose, Start date: 08/17/17 12:57:00 CDT, Duration: 30 day, Stop date: 09/16/17 11:56:00 MATERIAL DAMAGE ADJUSTER Notes: (Same as: Romazicon) Start Date: 08/17/17 Stop Date: 08/17/17 Status: Discontinued ANES hydrALAZINE 10 mg, 0.5 mL, Route: IVP, Drug form: INJ, Q20Min, Dosing Weight 100, kg, PRN Elevated BP, Start date: 08/17/17 12:57:00 CDT, Duration: 2 doses or times, Stop date: 08/18/17 0:00:00 CDT Notes: (Same as: Apresoline)Push over 5 minutes Start Date: 08/17/17 Stop Date: 08/17/17 Status: Discontinued ANES HYDROmorphone 0.5 mg, 0.25 mL, Route: IVP, Drug form: INJ, Q5Min, Dosing Weight 100, kg, PRN Pain Score 7-10, Start date: 08/17/17 12:57:00 CDT, Duration: 4 doses or times, Stop date: 08/18/17 0:00:00 CDT Notes: Same as: Dilaudid Start Date: 08/17/17 Stop Date: 08/17/17 Status: Discontinued ANES naloxone 0.4 mg, 1 mL, Route: IVP, Drug form: INJ, Q2MIN, Dosing Weight 100, kg, PRN Narcotic Reversal, Start date: 08/17/17 12:57:00 CDT, Duration: 8 doses or times , Stop date: 08/18/17 0:00:00 CDT Notes: Same as Narcan Start Date: 08/17/17 Stop Date: 08/17/17 Status: Discontinued ANES ondansetron 4 mg, 2 mL, Route: IVP, Drug form: INJ, ONCE, Dosing Weight 100, kg, PRN Nausea & Vomiting, Start date: 08/17/17 12:57:00 CDT Notes: (Same as: Mily) MEDICATION WASTE Product Size: 4 mgProduct Wasted: ___ mg Start Date: 08/17/17 Stop Date: 08/17/17 Status: Completed calcium carbonate 500 mg (200 mg elemental calcium) oral tablet 1,000 mg, 2 tab, Route: PO, Drug form: CHEWTAB, PRN, Dosing Weight 100, kg, PRN Abnormal Lab Result, FOR ICU USE ONLY, Start date: 08/17/17 17:37:00 CDT, Duration: 30 day, Stop date: 09/16/17 16:36:00 MATERIAL DAMAGE ADJUSTER Notes: (Same As: Nithya)Calcium Carbonate 500 ov=128 mg elemental calcium Dose=_ mg calcium carbonate ( mg elemental calcium) Start Date: 08/17/17 Stop Date: 08/19/17 Status: Discontinued calcium carbonate 500 mg (200 mg elemental calcium) oral tablet 500 mg, 1 tab, Route: PO, Drug form: CHEWTAB, PRN, Dosing Weight 100, kg, PRN Abnormal Lab Result, FOR ICU USE ONLY, Start date: 08/17/17 17:37:00 CDT, Duration: 30 day, Stop date: 09/16/17 16:36:00 MATERIAL DAMAGE ADJUSTER Notes: (Same As: Nithya)Calcium Carbonate 500 se=956 mg elemental calcium Dose=_ mg calcium carbonate ( mg elemental calcium) Start Date: 08/17/17 Stop Date: 08/19/17 Status: Discontinued calcium chloride (ANES) Route: IV, Drug form: INJ, ONCE, Stop date: 08/17/17 10:12:00 CDT Start Date: 08/17/17 Stop Date: 08/17/17 Status: Completed calcium gluconate + sodium chloride 0.9% INJ 50 mL 1 gm, 10 mL, Route: IVPB, PRN, Dosing Weight 100, kg, PRN Abnormal Lab Result, Start date: 08/17/17 17:37:00 CDT, Duration: 30 day, Stop date: 09/16/17 16:36: 00 MATERIAL DAMAGE ADJUSTER, FOR ICU USE ONLY Notes: WASTE: F/P - Sink; E - Municipal Trash Bin Start Date: 08/17/17 Stop Date: 08/19/17 Status: Discontinued ceFAZolin (ANES) Route: IV, Drug form: INJ, ONCE, Stop date: 08/17/17 10:02:00 CDT Start Date: 08/17/17 Stop Date: 08/17/17 Status: Completed ceFAZolin (SCIP) + sodium chloride 0.9% INJ 100 mL 2 gm, Route: IVPB, Q8H, Dosing Weight 100, kg, Start date: 08/17/17 22:00:00 CDT , Duration: 3 doses or times, Stop date: 08/18/17 14:00:00 CDT, ABX Indication: Surgical Prophylaxis Notes: (Same As: Annia Jensen)Cefazolin FOR IV SET ONLY MEDICATION WASTE Product Size: 1000 mgProduct Wasted: ___ mg Start Date: 08/17/17 Stop Date: 08/18/17 Status: Completed Colace 100 mg oral capsule 100 mg=1 cap, PO, BID, # 28 cap, 0 Refill(s), [id number] Start Date: 08/19/17 Stop Date: 09/02/17 Status: Ordered dexamethasone 4 mg, 1 mL, Route: IVP, Drug form: INJ, Q6H, Dosing Weight 100, kg, Start date: 08/17/17 19:07:00 CDT, Duration: 30 day, Stop date: 09/16/17 19:00:00 MATERIAL DAMAGE ADJUSTER Start Date: 08/17/17 Stop Date: 08/19/17 Status: Discontinued dexamethasone (ANES) Route: IV, Drug form: INJ, ONCE, Stop date: 08/17/17 9:37:00 CDT Start Date: 08/17/17 Stop Date: 08/17/17 Status: Completed dexamethasone 4 mg oral tablet See Instructions, 4 mg TID on days 1 and 2 2 mg BID on days 3 and 4 2 mg daily on days 5 and 6 1 mg daily on day 7 and then stop, # 20 tab, 0 Refill(s) , Pharmacy: [facility]/pharmacy #[id number] Start Date: 08/19/17 Stop Date: 08/25/17 Status: Ordered docusate 100 mg, 1 cap, Route: PO, Drug form: CAP, Q12H, Dosing Weight 100, kg, Start date: 08/17/17 21:00:00 CDT, Duration: 30 day, Stop date: 09/16/17 9:00:00 MATERIAL DAMAGE ADJUSTER Notes: (Same as: Colace) (Do Not Crush) Start Date: 08/17/17 Stop Date: 08/19/17 Status: Discontinued ePHEDrine (ANES) Route: IV, Drug form: INJ, ONCE, Stop date: 08/17/17 10:02:00 CDT Start Date: 08/17/17 Stop Date: 08/17/17 Status: Completed erythromycin ophthalmic 0.5% ointment 1 appl, Route: RIGHT EYE, QID, Drug form: OINT, Start date: 08/18/17 21:00:00 CDT, Duration: 5 day, Stop date: 08/23/17 17:00:00 CDT Start Date: 08/18/17 Stop Date: 08/19/17 Status: Discontinued famotidine 20 mg, 2 mL, Route: IVP, Drug form: INJ, Q12H, Dosing Weight 100, kg, Start date : 08/17/17 21:00:00 CDT, Duration: 30 day, Stop date: 09/16/17 9:00:00 MATERIAL DAMAGE ADJUSTER Notes: (Same as: Pepcid)Can be dilute in 5-10cc NS IVP: Slow IV push over at least 2 minutes. Start Date: 08/17/17 Stop Date: 08/19/17 Status: Discontinued famotidine (ANES) Route: IV, Drug form: INJ, ONCE, Stop date: 08/17/17 10:17:00 CDT Start Date: 08/17/17 Stop Date: 08/17/17 Status: Completed fentaNYL (ANES) Route: IV, Drug form: INJ, ONCE, Stop date: 08/17/17 9:32:00 CDT Start Date: 08/17/17 Stop Date: 08/17/17 Status: Completed heparin 5000 units/mL injectable solution 5,000 unit, 1 mL, Route: SUB-Q, Drug form: INJ, Q8H, Dosing Weight 100, kg, Start date: 08/19/17 0:00:00 CDT, Duration: 30 day, Stop date: 09/17/17 16:00: 00 MATERIAL DAMAGE ADJUSTER Notes: porcine heparin Start Date: 08/19/17 Stop Date: 08/19/17 Status: Discontinued hydrALAZINE 10 mg, 0.5 mL, Route: IVP, Drug form: INJ, Q4H, Dosing Weight 100, kg, PRN Hypertension, Start date: 08/17/17 15:12:00 CDT, Duration: 30 day, Stop date: 15:11:00 MATERIAL DAMAGE ADJUSTER Notes: (Same as: Apresoline)Push over 5 minutes Start Date: 08/17/17 Stop Date: 08/19/17 Status: Discontinued ibuprofen PO, PRN, 0 Refill(s) Start Date: 08/12/17 Stop Date: 08/19/17 Status: Discontinued labetalol 10 mg, 2 mL, Route: IVP, Drug form: INJ, Q4H, Dosing Weight 100, kg, PRN Hypertension, Start date: 08/17/17 19:00:00 CDT, Duration: 30 day, Stop date: 18:59:00 MATERIAL DAMAGE ADJUSTER Start Date: 08/17/17 Stop Date: 08/19/17 Status: Discontinued labetalol 10 mg, Route: IVP, Drug form: INJ, [id number], Dosing Weight 100, kg, PRN Hypertension, Start date: 08/17/17 15:11:00 CDT, Duration: 3 doses or times, Stop date: Limited # of times Start Date: 08/17/17 Stop Date: 08/17/17 Status: Discontinued labetalol (ANES) Route: IV, Drug form: INJ, ONCE, Stop date: 08/17/17 15:22:00 CDT Start Date: 08/17/17 Stop Date: 08/17/17 Status: Completed levETIRAcetam (ANES) Route: IV, Drug form: INJ, ONCE, Stop date: 08/17/17 9:57:00 CDT Start Date: 08/17/17 Stop Date: 08/17/17 Status: Completed levETIRAcetam 500 mg oral tablet 1,000 mg, 2 tab, Route: PO, Drug form: TAB, Q12H, Dosing Weight 100, kg, Start date: 08/17/17 21:00:00 CDT, Duration: 30 day, Stop date: 09/16/17 9:00:00 MATERIAL DAMAGE ADJUSTER Notes: (Same as:Cheri) Start Date: 08/17/17 Stop Date: 08/19/17 Status: Discontinued lidocaine (ANES) Route: IV, Drug form: INJ, ONCE, Stop date: 08/17/17 9:32:00 CDT Start Date: 08/17/17 Stop Date: 08/17/17 Status: Completed LR 1000 mL INJ (ANES) Route: IV, Total Volume: 1,000, Start date: 08/17/17 7:30:00 CDT, Stop date: 8:30:00 CDT Start Date: 08/17/17 Stop Date: 08/17/17 Status: Completed magnesium citrate 1.745 g/30 mL oral liquid 8.725 vx=706 ml, PO, ONCE, if no bowel movement in couple days, # 300 ml, 0 Refill(s), Pharmacy: [facility]/pharm[facility] #[id number] Start Date: 08/19/17 Status: Ordered magnesium oxide 800 mg, 2 tab, Route: PO, Drug form: TAB, PRN, Dosing Weight 100, kg, PRN Abnormal Lab Result, FOR ICU USE ONLY, Start date: 08/17/17 17:37:00 CDT, Duration: 30 day, Stop date: 09/16/17 16:36:00 MATERIAL DAMAGE ADJUSTER Notes: (Same as: Mag-Ox 400)Magnesium oxide [id number] elemental magnesiumDose= ____mg magnesium oxide (___mg elemental magnesium) Start Date: 08/17/17 Stop Date: 08/19/17 Status: Discontinued magnesium sulfate 2 gm, 50 mL, Route: IVPB, Drug form: INJ, PRN, Dosing Weight 100, kg, PRN Abnormal Lab Result, Start date: 08/17/17 17:37:00 CDT, Duration: 30 day, Stop date: 09/16/17 16:36:00 MATERIAL DAMAGE ADJUSTER, FOR ICU USE ONLY Notes: WASTE: F/P - Sink; E - Municipal Trash Bin Start Date: 08/17/17 Stop Date: 08/19/17 Status: Discontinued mannitol (ANES) (ANES) Route: IV, Drug form: INJ, Start date: 08/17/17 8:45:00 CDT, Stop date: 9:45:00 CDT Start Date: 08/17/17 Stop Date: 08/17/17 Status: Completed morphine Sulfate 2 mg, 0.5 mL, Route: IVP, Drug form: SOLN, Q2H, Dosing Weight 100, kg, PRN Pain Score 7-10, Start date: 08/17/17 15:08:00 CDT, Stop date: 09/16/17 15:07:00 MATERIAL DAMAGE ADJUSTER Notes: (Same as:MORPhine Sulfate) Start Date: 08/17/17 Stop Date: 08/19/17 Status: Discontinued niCARdipine (ANES) Route: IV, Drug form: INJ, ONCE, Stop date: 08/17/17 15:22:00 CDT Start Date: 08/17/17 Stop Date: 08/17/17 Status: Completed niCARdipine 20 mg 20 mg, 200 mL, Rate: Titrate, Start Dose: 5 mg/hr, Titration: 2.5 mg/hr every 15 minutes, Goal(s): SBP < 140, Max Dose: 15 mg/hr, Route: IV, Dosing Weight 100 kg, Total Volume: 200, Start date: 08/17/17 15:30:00 CDT, Duration: 30 day, Stop date: 09/16... Start Date: 08/17/17 Stop Date: 08/17/17 Status: Discontinued niCARdipine 20mg/NS 200ml IV Soln 20 mg 20 mg, 200 mL, Rate: Titrate, Start Dose: 5 mg/hr, Titration: 2.5 mg/hr every 15 minutes, Goal(s): SBP 110-140, Max Dose: 15 mg/hr, Route: IV, Dosing Weight 100 kg, Total Volume: 200, Start date: 08/17/17 19:34:00 CDT, Duration: 30 day, Stop date: .. Notes: Same as: CardeneConcentration: (0.1 mg/ 1 ml) Start Date: 08/17/17 Stop Date: 08/19/17 Status: Discontinued niCARdipine 20mg/NS 200ml IV Soln 20 mg 20 mg, 200 mL, Rate: Titrate, Start Dose: 5 mg/hr, Titration: 2.5 mg/hr every 15 minutes, Goal(s): SBP < 140, Max Dose: 15 mg/hr, Route: IV, Dosing Weight 100 kg, Total Volume: 200, Start date: 08/17/17 18:48:00 CDT, Duration: 30 day, Stop date: 09/16... Notes: Same as: CardeneConcentration: (0.1 mg/ 1 ml) Start Date: 08/17/17 Stop Date: 08/17/17 Status: Discontinued ondansetron 4 mg, 2 mL, Route: IVP, Drug form: INJ, Q8H, Dosing Weight 100, kg, PRN Nausea & Vomiting, Start date: 08/17/17 15:08:00 CDT, Duration: 30 day, Stop date: 15:07:00 MATERIAL DAMAGE ADJUSTER Notes: (Same as: Mily) MEDICATION WASTE Product Size: 4 mgProduct Wasted: ___ mg Start Date: 08/17/17 Stop Date: 08/17/17 Status: Discontinued ondansetron 4 mg, 2 mL, Route: IVP, Drug form: INJ, Q6H, Dosing Weight 100, kg, PRN Nausea & Vomiting, Priority: NOW, Start date: 08/17/17 19:10:00 CDT, Duration: 30 day, Stop date: 09/16/17 19:09:00 MATERIAL DAMAGE ADJUSTER Notes: (Same as: Mily) MEDICATION WASTE Product Size: 4 mgProduct Wasted: ___ mg Start Date: 08/17/17 Stop Date: 08/19/17 Status: Discontinued ondansetron (ANES) Route: IV, Drug form: INJ, ONCE, Stop date: 08/17/17 14:52:00 CDT Start Date: 08/17/17 Stop Date: 08/17/17 Status: Completed phenylephrine (ANES) Route: IV, Drug form: INJ, ONCE, Stop date: 08/17/17 10:02:00 CDT Start Date: 08/17/17 Stop Date: 08/17/17 Status: Completed potassium chloride 20 mEq, 1 tab, Route: PO, Drug form: ERTAB, PRN, Dosing Weight 100, kg, PRN Abnormal Lab Result, Start date: 08/17/17 17:37:00 CDT, Duration: 30 day, Stop date: 09/16/17 16:36:00 MATERIAL DAMAGE ADJUSTER, FOR ICU USE ONLY Notes: (Same as: K-Dur 20)"Do Not Crush" With food and full glass of water Start Date: 08/17/17 Stop Date: 08/19/17 Status: Discontinued potassium chloride 20 mEq, 100 mL, Route: IVPB, Drug form: INJ, PRN, Dosing Weight 100, kg, PRN Abnormal Lab Result, Via central line, Start date: 08/17/17 17:37:00 CDT, Duration: 30 day, Stop date: 09/16/17 16:36:00 MATERIAL DAMAGE ADJUSTER, FOR ICU USE ONLY Notes: (Same as: KCL) Infuse no faster than 10 mEq/hr if given peripherally. Start Date: 08/17/17 Stop Date: 08/19/17 Status: Discontinued potassium chloride 20 mEq, 15 mL, Route: NJ, Drug form: LIQ, PRN, Dosing Weight 100, kg, PRN Abnormal Lab Result, Start date: 08/17/17 17:37:00 CDT, Duration: 30 day, Stop date: 09/16/17 16:36:00 MATERIAL DAMAGE ADJUSTER, FOR ICU USE ONLY Notes: (Same as: Potassium Chloride) Start Date: 08/17/17 Stop Date: 08/19/17 Status: Discontinued potassium chloride 10 mEq, 50 mL, Route: IVPB, Drug form: INJ, PRN, Dosing Weight 100, kg, PRN Abnormal Lab Result, Via peripheral line, Start date: 08/17/17 17:37:00 CDT, Duration: 30 day, Stop date: 09/16/17 16:36:00 MATERIAL DAMAGE ADJUSTER, FOR ICU USE ONLY Notes: (Same as: KCL) Infuse over 2 hours. Start Date: 08/17/17 Stop Date: 08/19/17 Status: Discontinued potassium phosphate + sodium chloride 0.9% INJ 250 mL 45 mmol, 15 mL, Route: IVPB, PRN, Dosing Weight 100, kg, PRN Abnormal Lab Result , Start date: 08/17/17 17:37:00 CDT, Duration: 30 day, Stop date: 09/16/17 16:36 :00 MATERIAL DAMAGE ADJUSTER, FOR ICU USE ONLY Notes: (Same as: K Phosphate.) 1 mMol phoshate has 1.47 mEq potassium Infuse over 4 hours Start Date: 08/17/17 Stop Date: 08/19/17 Status: Discontinued potassium phosphate + sodium chloride 0.9% INJ 250 mL 30 mmol, 10 mL, Route: IVPB, PRN, Dosing Weight 100, kg, PRN Abnormal Lab Result , Start date: 08/17/17 17:37:00 CDT, Duration: 30 day, Stop date: 09/16/17 16:36 :00 MATERIAL DAMAGE ADJUSTER, FOR ICU USE ONLY Notes: (Same as: K Phosphate.) 1 mMol phoshate has 1.47 mEq potassium Infuse over 4 hours Start Date: 08/17/17 Stop Date: 08/19/17 Status: Discontinued potassium phosphate + sodium chloride 0.9% INJ 250 mL 15 mmol, 5 mL, Route: IVPB, PRN, Dosing Weight 100, kg, PRN Abnormal Lab Result , Start date: 08/17/17 17:37:00 CDT, Duration: 30 day, Stop date: 09/16/17 16:36 :00 MATERIAL DAMAGE ADJUSTER, FOR ICU USE ONLY Notes: (Same as: K Phosphate.) 1 mMol phoshate has 1.47 mEq potassium Infuse over 4 hours Start Date: 08/17/17 Stop Date: 08/19/17 Status: Discontinued potassium phosphate-sodium phosphate 250 mg-280 mg-160 mg oral powder for reconstitution 2 pkt, Route: PO, Drug Form: PDR/REC, Dosing Weight 100, kg, PRN, PRN Abnormal Lab Result, FOR ICU USE ONLY, Start date: 08/17/17 17:37:00 CDT, Duration: 30 day, Stop date: 09/16/17 16:36:00 MATERIAL DAMAGE ADJUSTER Notes: (Same as: Phos-NaK) Each 1.5 gm pkt has 250mg phosphorous. Mix w/2.5oz water and stir. Start Date: 08/17/17 Stop Date: 08/19/17 Status: Discontinued propofol (ANES) Route: IV, Drug form: INJ, ONCE, Stop date: 08/17/17 9:32:00 CDT Start Date: 08/17/17 Stop Date: 08/17/17 Status: Completed propofol (ANES) (ANES) Route: IV, Drug form: INJ, Start date: 08/17/17 7:43:00 CDT, Stop date: 8:43:00 CDT Start Date: 08/17/17 Stop Date: 08/17/17 Status: Completed remifentanil (ANES) (ANES) Route: IV, Drug form: INJ, Start date: 08/17/17 7:43:00 CDT, Stop date: 8:43:00 CDT Start Date: 08/17/17 Stop Date: 08/17/17 Status: Completed rocuronium (ANES) Route: IV, Drug form: INJ, ONCE, Stop date: 08/17/17 9:32:00 CDT Start Date: 08/17/17 Stop Date: 08/17/17 Status: Completed Saline Flush 0.9% 10 ml, Route: IVP, Drug Form: INJ, Dosing Weight 100, kg, PRN, PRN Line Flush, Start date: 08/17/17 15:08:00 CDT, Duration: 30 day, Stop date: 09/16/17 14:07: 00 MATERIAL DAMAGE ADJUSTER Notes: (Same as: BD Posiflush) Start Date: 08/17/17 Stop Date: 08/19/17 Status: Discontinued Saline Flush 0.9% 10 ml, Route: IVP, Drug Form: INJ, Dosing Weight 100, kg, Q12H, Start date: 21:00:00 CDT, Duration: 30 day, Stop date: 09/16/17 9:00:00 MATERIAL DAMAGE ADJUSTER Notes: (Same as: BD Posiflush) Start Date: 08/17/17 Stop Date: 08/19/17 Status: Discontinued senna 8.6 mg, 1 tab, Route: PO, Drug Form: TAB, Dosing Weight 100, kg, Q12H, Start date: 08/17/17 21:00:00 CDT, Duration: 30 day, Stop date: 09/16/17 9:00:00 MATERIAL DAMAGE ADJUSTER Notes: (Same as: Senokot) Start Date: 08/17/17 Stop Date: 08/19/17 Status: Discontinued senna 8.6 mg oral tablet 17.2 mg=2 tab, PO, Bedtime, PRN Constipation, X 10 day, # 20 tab, 0 Refill(s), Pharmacy: [facility]/pharmacy #[id number] Start Date: 08/19/17 Stop Date: 08/29/17 Status: Ordered sodium chloride 0.9% 1000 ml INJ (ANES) Route: IV, Total Volume: 1,000, Start date: 08/17/17 8:30:00 CDT, Stop date: 9:30:00 CDT Start Date: 08/17/17 Stop Date: 08/17/17 Status: Completed sodium chloride 0.9% 1000 ml INJ 1,000 mL 1,000 mL, Rate: 100 ml/hr, Infuse over: 10 hr, Route: IV, Dosing Weight 100 kg, Total Volume: 1,000, Start date: 08/17/17 15:08:00 CDT, Stop date: 09/16/17 15: 07:00 MATERIAL DAMAGE ADJUSTER Start Date: 08/17/17 Stop Date: 08/19/17 Status: Discontinued sodium chloride 0.9% 500 ml INJ (ANES) Route: IV, Total Volume: 500, Start date: 08/17/17 8:29:00 CDT, Stop date: 08/17 9:29:00 CDT Start Date: 08/17/17 Stop Date: 08/17/17 Status: Completed sodium phosphate + sodium chloride 0.9% INJ 250 mL 45 mmol, 15 mL, Route: IVPB, PRN, Dosing Weight 100, kg, PRN Abnormal Lab Result , Start date: 08/17/17 17:37:00 CDT, Duration: 30 day, Stop date: 09/16/17 16:36 :00 MATERIAL DAMAGE ADJUSTER, FOR ICU USE ONLY Start Date: 08/17/17 Stop Date: 08/19/17 Status: Discontinued sodium phosphate + sodium chloride 0.9% INJ 250 mL 30 mmol, 10 mL, Route: IVPB, PRN, Dosing Weight 100, kg, PRN Abnormal Lab Result , Start date: 08/17/17 17:37:00 CDT, Duration: 30 day, Stop date: 09/16/17 16:36 :00 MATERIAL DAMAGE ADJUSTER, FOR ICU USE ONLY Start Date: 08/17/17 Stop Date: 08/19/17 Status: Discontinued sodium phosphate + sodium chloride 0.9% INJ 250 mL 15 mmol, 5 mL, Route: IVPB, PRN, Dosing Weight 100, kg, PRN Abnormal Lab Result , Start date: 08/17/17 17:37:00 CDT, Duration: 30 day, Stop date: 09/16/17 16:36 :00 MATERIAL DAMAGE ADJUSTER, FOR ICU USE ONLY Start Date: 08/17/17 Stop Date: 08/19/17 Status: Discontinued Zofran 4 mg oral tablet 4 mg=1 tab, PO, Q8H, PRN Nausea/vomiting, # 30 tab, 0 Refill(s), Pharmacy: [facility]/ pharmacy #[id number] Start Date: 08/19/17 Stop Date: 08/29/17 Status: Ordered Results BLOOD BANK RESULTS 1 2 3 Most recent to oldest [Reference Range]: A POS *Unknown* (08/17/17 6:06 AM) ABO/Rh Negative (08/17/17 6:06 AM) Antibody Scrn ELECTROLYTES 1 2 3 Most recent to oldest [Reference Range]: 140 mEq/L (08/18/17 12:50 AM) 139 mEq/L (08/17/17 3:37 PM) 141 mEq/L (08/12/17 1:30 PM) Sodium Lvl [135-145 mEq/L] 4.3 mEq/L (08/18/17 8:58 AM) 3.4 mEq/L *LOW* (08/18/17 12:50 AM) 4.1 mEq/L (08/17/17 3:37 PM) Potassium Lvl [3.5-5.1 mEq/L] 104 mEq/L (08/18/17 12:50 AM) 109 mEq/L (08/17/17 3:37 PM) 104 mEq/L (08/12/17 1:30 PM) Chloride Lvl [95-109 mEq/L] 22 mEq/L *LOW* (08/18/17 12:50 AM) 23 mEq/L *LOW* (08/17/17 3:37 PM) 28 mEq/L (08/12/17 1:30 PM) CO2 [24-32 mEq/L] 17.4 mEq/L (08/18/17 12:50 AM) 11.1 mEq/L (08/17/17 3:37 PM) 13.9 mEq/L (08/12/17 1:30 PM) AGAP [10.0-20.0 mEq/L] CHEM PANEL 1 2 3 Most recent to oldest [Reference Range]: 0.96 mg/dL (08/18/17 12:50 AM) 0.91 mg/dL (08/17/17 3:37 PM) 0.69 mg/dL (08/12/17 1:30 PM) Creatinine Lvl [0.50-1.40 mg/dL] 84 mL/min/1.73m2 1 *NA* (08/18/17 12:50 AM) 89 mL/min/1.73m2 2 *NA* (08/17/17 3:37 PM) 123 mL/min/1.73m2 3 *NA* (08/12/17 1:30 PM) eGFR 5 mg/dL *LOW* (08/18/17 12:50 AM) 6 mg/dL *LOW* (08/17/17 3:37 PM) 11 mg/dL (08/12/17 1:30 PM) BUN [7-22 mg/dL] 134 mg/dL *HI* (08/18/17 12:50 AM) 143 mg/dL *HI* (08/17/17 3:37 PM) 90 mg/dL (08/12/17 1:30 PM) Glucose Lvl [70-99 mg/dL] 8.4 mg/dL *LOW* (08/18/17 12:50 AM) 7.8 mg/dL *LOW* (08/17/17 3:37 PM) 8.9 mg/dL (08/12/17 1:30 PM) Calcium Lvl [8.5-10.5 mg/dL] 3.1 mg/dL (08/18/17 12:50 AM) 2.5 mg/dL (08/17/17 3:37 PM) Phosphorus [2.5-4.5 mg/dL] 1.8 mg/dL (08/18/17 12:50 AM) 1.7 mg/dL *LOW* (08/17/17 3:37 PM) Magnesium Lvl [1.8-2.4 mg/dL] 1Result Comment: The eGFR is calculated using [...] should be multiplied by the estimated BMI. 2Result Comment: The eGFR is calculated using the [...] should be multiplied by the estimated BMI. 3Result Comment: The eGFR is calculated using the [...] should be multiplied by the estimated BMI. CARDIAC ENZYMES 1 2 3 Most recent to oldest [Reference Range]: 1299 unit/L *HI* (08/18/17 4:54 AM) 1114 unit/L *HI* (08/17/17 8:52 PM) Total CK [12-191 unit/L] 6.0 ng/mL *HI* (08/17/17 8:52 PM) CK MB [0.5-3.6 ng/mL] 0.5 (08/17/17 8:52 PM) CK MB Index [0.0-2.5] <0.02 ng/mL (08/17/17 8:52 PM) Troponin-I [0.00-0.40 ng/mL] PARATHYROID PROFILE 1 2 3 Most recent to oldest [Reference Range]: 1.09 mMol/L (08/18/17 12:50 AM) Ca Ion WB [1.05-1.25 mMol/L] 1.09 mMol/L (08/18/17 12:50 AM) Ca Norm WB [1.05-1.25 mMol/L] HEMATOLOGY 1 2 3 Most recent to oldest [Reference Range]: 15.1 K/CMM *HI* (08/18/17 12:50 AM) 7.5 K/CMM (08/17/17 3:37 PM) 7.5 K/CMM (08/12/17 1:30 PM) WBC [3.7-10.4 K/CMM] 3.72 M/CMM *LOW* (08/18/17 12:50 AM) 3.37 M/CMM *LOW* (08/17/17 3:37 PM) 4.43 M/CMM (08/12/17 1:30 PM) RBC [4.20-5.40 M/CMM] 10.6 g/dL *LOW* (08/18/17 12:50 AM) 9.6 g/dL *LOW* (08/17/17 3:37 PM) 12.8 g/dL (08/12/17 1:30 PM) Hgb [12.0-16.0 g/dL] 31.9 % *LOW* (08/18/17 12:50 AM) 29.1 % *LOW* (08/17/17 3:37 PM) 38.7 % (08/12/17 1:30 PM) Hct [36.0-48.0 %] 85.7 fL (08/18/17 12:50 AM) 86.6 fL (08/17/17 3:37 PM) 87.3 fL (08/12/17 1:30 PM) MCV [80.0-98.0 fL] 28.5 pg (08/18/17 12:50 AM) 28.6 pg (08/17/17 3:37 PM) 28.8 pg (08/12/17 1:30 PM) MCH [27.0-31.0 pg] 33.3 g/dL (08/18/17 12:50 AM) 33.1 g/dL (08/17/17 3:37 PM) 33.0 g/dL (08/12/17 1:30 PM) MCHC [32.0-36.0 g/dL] 14.4 % (08/18/17 12:50 AM) 14.7 % *HI* (08/17/17 3:37 PM) 14.8 % *HI* (08/12/17 1:30 PM) RDW [11.5-14.5 %] 285 K/CMM (08/18/17 12:50 AM) 247 K/CMM (08/17/17 3:37 PM) 313 K/CMM (08/12/17 1:30 PM) Platelet [133-450 K/CMM] 8.2 fL (08/18/17 12:50 AM) 7.7 fL (08/17/17 3:37 PM) 8.3 fL (08/12/17 1:30 PM) MPV [7.4-10.4 fL] 92.1 % *HI* (08/18/17 12:50 AM) 82.1 % *HI* (08/17/17 3:37 PM) 45.7 % (08/12/17 1:30 PM) Segs [45.0-75.0 %] 5.5 % *LOW* (08/18/17 12:50 AM) 15.5 % *LOW* (08/17/17 3:37 PM) 46.0 % *HI* (08/12/17 1:30 PM) Lymphocytes [20.0-40.0 %] 2.3 % (08/18/17 12:50 AM) 2.0 % (08/17/17 3:37 PM) 6.7 % (08/12/17 1:30 PM) Monocytes [2.0-12.0 %] 0.1 % (08/17/17 3:37 PM) 0.8 % (08/12/17 1:30 PM) Eosinophils [0.0-4.0 %] 0.1 % (08/18/17 12:50 AM) 0.3 % (08/17/17 3:37 PM) 0.8 % (08/12/17 1:30 PM) Basophils [0.0-1.0 %] 13.9 K/CMM *HI* (08/18/17 12:50 AM) 6.2 K/CMM (08/17/17 3:37 PM) 3.4 K/CMM (08/12/17 1:30 PM) Segs-Bands # [1.5-8.1 K/CMM] 0.8 K/CMM *LOW* (08/18/17 12:50 AM) 1.2 K/CMM (08/17/17 3:37 PM) 3.5 K/CMM (08/12/17 1:30 PM) Lymphocytes # [1.0-5.5 K/CMM] 0.3 K/CMM (08/18/17 12:50 AM) 0.1 K/CMM (08/17/17 3:37 PM) 0.5 K/CMM (08/12/17 1:30 PM) Monocytes # [0.0-0.8 K/CMM] 0.1 K/CMM (08/12/17 1:30 PM) Eosinophils # [0.0-0.5 K/CMM] 0.1 K/CMM (08/12/17 1:30 PM) Basophils # [0.0-0.2 K/CMM] 14.6 seconds (08/18/17 12:50 AM) 13.9 seconds (08/17/17 8:52 PM) 14.5 seconds (08/17/17 3:37 PM) PT [12.0-14.7 seconds] 1.12 (08/18/17 12:50 AM) 1.05 (08/17/17 8:52 PM) 1.11 (08/17/17 3:37 PM) INR [0.85-1.17] 30.8 seconds (08/18/17 12:50 AM) 28.6 seconds (08/17/17 8:52 PM) 28.6 seconds (08/17/17 3:37 PM) PTT [22.9-35.8 seconds] 5.6 minutes (08/12/17 1:30 PM) R-time [5.0-10.0 minutes] 1.3 minutes (08/12/17 1:30 PM) K-time [1.0-3.0 minutes] 71.0 degrees (08/12/17 1:30 PM) Angle [53.0-72.0 degrees] 70.5 mm *HI* (08/12/17 1:30 PM) Max Amp [50.0-70.0 mm] 11.9 K d/sc *HI* (08/12/17 1:30 PM) G-value [4.5-11.0 K d/sc] 0.2 % (08/12/17 1:30 PM) Ly30 [0.0-7.5 %] 2.1 (08/12/17 1:30 PM) Coag Index [-3.0-3.0] Thrombelastograph results show increased values of MA. This finding is suggestive of platelet hypercoagulation. CPT:17643 *NA* (08/12/17 1:30 PM) TEG Interp See Note (08/12/17 1:30 PM) TEG Data BACTERIAL - SEROLOGY 1 2 3 Most recent to oldest [Reference Range]: Negative (08/18/17 8:58 AM) MRSA by PCR Immunizations Given and Recorded Vaccine Date Status [...] No. Smoking Status Former smoker; Type: Cigarettes; Number of years: 10; Previous treatment: None; Ready to change: Yes; Concerns about tobacco use in household: No; Exposure to Tobacco Smoke None; Cigarette Smoking Last 365 Days Yes; Reg Smoking Cessation Counseling Yes Assessment and Plan No data available for this section
--- OUTSIDE RECORDS SUMMARY | 2018-04-11 21:49 | XMS REPORT | CCD ---
Author Author [facility] Organization [facility] Address Unknown Phone Unavailable Care Team Providers Care Regional Economic Liaison Name Role Phone Isca Solis CP Allergies, Adverse Reactions, Alerts Substance Reaction Status NKDA Active Problem List Condition Effective Dates Status Brain tumor Active Medications Medication Instructions Start Date End Date Status Dilaudid 1 mg, 1 mL, Route: IM, Drug form: 11/26/2013 11/26/2013 Completed INJ, ONCE, Dosing Weight 90, kg, Start date: 11/26/13 17:00:00, Stop date: 11/26/13 17:00:00 ondansetron 4 mg, 1 tab, Route: PO, Drug form: 11/26/2013 11/26/2013 Completed TABDIS, ONCE, Dosing Weight 90, kg, Priority: STAT, Start date: 11/26/13 16:59:00, Stop date: 11/26/13 16:59:00(Same as: Zofran ODT) Zofran ODT 4 mg, Route: PO, ONCE, Dosing 11/26/2013 11/26/2013 Completed Weight 90, kg, Start date: 11/26/13 18:01:00, Stop date: 11/26/13 18:01:00 [place] 5/325 oral 1 tab, PO, Q4-6H, as needed for 11/26/2013 Ordered tablet pain, # 12 tab, 0 Refill(s) Zofran 4 mg oral 4 mg=1 tab, PO, BID, # 6 tab, 0 11/26/2013 Ordered tablet Refill(s) Vital Signs Most recent to oldest [Reference Range]: 1 2 Height 170.18 cm (11/26/2013 14:45:00) Temperature Oral [96.4-99.1 DegF] 98.1 DegF (11/26/2013 18:03:00) 98.5 DegF (11/26/2013 14:45:00) Systolic Blood Pressure [90-140 mmHg] 117 mmHg (11/26/2013 18:03:00) 115 mmHg (11/26/2013 14:45:00) Diastolic Blood Pressure [60-90 mmHg] 88 mmHg (11/26/2013 18:03:00) 72 mmHg (11/26/2013 14:45:00) Respiratory Rate [14-20 BRMIN] 16 BRMIN (11/26/2013 18:03:00) 18 BRMIN (11/26/2013 14:45:00) Peripheral Pulse Rate [60-100 bpm] 86 bpm (11/26/2013 18:03:00) 84 bpm (11/26/2013 14:45:00) Weight 90 kg (11/26/2013 14:45:00)
--- OUTSIDE RECORDS SUMMARY | 2018-04-11 21:49 | XMS REPORT | Summary of Care ---
Author Author [facility] [place] Organization [facility] [place] Address Unknown Phone Unavailable Encounter TRISHA Collins(RAZA) [id number] Date(s): 05/04/17 - 05/04/17 [facility] [place] [address] [place] [address]- [phone] Discharge Disposition: Home or Self Care Attending Physician: Abbe Vasquez MD Vital Signs No data available for this [...]
--- OUTSIDE RECORDS SUMMARY | 2018-04-11 21:49 | XMS REPORT | Summary of Care ---
Author Author [facility] Organization [facility] Address Unknown Phone Unavailable Encounter TRISHA Collins(RAZA) [id number] Date(s): 05/20/17 - 06/18/17 [facility] [address] [facility] [address] [phone] Discharge Disposition: Home or Self Care Attending Physician: Abbe Vasquez MD Referring Physician: Abbe Vasquez MD Vital Signs Most recent to 1 oldest [Reference Range]: Height 170.1 cm (05/20/17 2:03 PM) Temperature Oral 98 DegF [96.4-99.1 DegF] (05/20/17 2:03 PM) Blood Pressure 110/79 mmHg [90-140/60-90 mmHg] (05/20/17 2:03 PM) Respiratory Rate 18 BRMIN [14-20 BRMIN] (05/20/17 2:03 PM) Peripheral Pulse 98 bpm Rate [60-100 bpm] (05/20/17 2:03 PM) Weight 100.273 kg (05/20/17 2:03 PM) Body Mass Index 34.66 m2 (05/20/17 2:03 PM) Problem List Condition Effective Dates Status Health Status Informant Brain Active tumor(Confirmed) GERD Active (gastroesophageal reflux disease)(Confirmed) Obesity(Confirmed) Active Obesity (BMI Active 30.0-34.9)(Confirmed )1 1BMI-33.3 Allergies, Adverse Reactions, Alerts Substance Reaction Severity Status NKDA Active Medications apixaban 5 mg oral tablet 5 mg=1 tab, PO, BID, # 120 tab, 0 Refill(s) Start Date: 04/08/17 Stop Date: 06/07/17 Status: Ordered Results No data available for this section Immunizations Given and Recorded Vaccine Date Status Refusal Reason pneumococcal 23-valent vaccine 3/3/17 Given Procedures Procedure Date Related Diagnosis Body [...]
--- OUTSIDE RECORDS SUMMARY | 2018-04-11 21:49 | XMS REPORT | Summary of Care ---
Author Author [facility] Organization [facility] Address Unknown Phone Unavailable Encounter TRISHA Collins(RAZA) [id number] Date(s): 06/24/15 - 06/24/15 [facility] [address] [place] [address]- Discharge Diagnosis: Corneal abrasion, left Discharge Disposition: Home Attending Physician: Hermann Rodríguez MD PHD Vital Signs Most recent to 1 2 oldest [Reference Range]: Height 170.18 cm (06/24/15 6:56 PM) Most recent to 1 2 oldest [Reference Range]: Temperature Oral 97.9 DegF 98.5 DegF [96.4-99.1 DegF] (06/24/15 8:50 PM) (06/24/15 6:56 PM) Most recent to 1 2 oldest [Reference Range]: Blood Pressure 118/89 mmHg 127/85 mmHg [90-140/60-90 mmHg] (06/24/15 8:50 PM) (06/24/15 6:56 PM) Most recent to 1 2 oldest [Reference Range]: Respiratory Rate 22 BRMIN 18 BRMIN [14-20 BRMIN] *HI* (06/24/15 6:56 PM) (06/24/15 8:50 PM) Most recent to 1 2 oldest [Reference Range]: Peripheral Pulse 85 bpm 99 bpm Rate [60-100 bpm] (06/24/15 8:50 PM) (06/24/15 6:56 PM) Most recent to 1 2 oldest [Reference Range]: Weight 90 kg (06/24/15 6:56 PM) Most recent to 1 2 oldest [Reference Range]: Body Mass Index 31.08 m2 (06/24/15 6:56 PM) Problem List Condition Effective Dates Status Health Status Informant Brain Active tumor(Confirmed) Allergies, Adverse Reactions, Alerts Substance Reaction Severity Status NKDA Active Medications moxifloxacin 0.5% ophthalmic solution 1 drp, Each Affected Eye, TID, X 7 day, # 3 mL, 0 Refill(s) Start Date: 06/24/15 Stop Date: 07/01/15 Status: Ordered [place] 7.5/325 oral tablet 1 tab, Route: PO, Drug Form: TAB, Dosing Weight 90, kg, ONCE, STAT, Start date: 06/24/15 20:24:00, Stop date: 06/24/15 20:24:00 Start Date: 06/24/15 Stop Date: 06/24/15 Status: Completed tramadol 50 mg oral tablet 50 mg=1 tab, PO, Q6H, PRN Pain, X 7 day, # 28 tab, 0 Refill(s) Start Date: 06/24/15 Stop Date: 07/01/15 Status: Ordered Results No data available for this section Immunizations No data available for this section Procedures Procedure Date Related Diagnosis Body Site Tumor destruction Social History Social History Type Response Smoking Status Never smoker; Exposure to Tobacco Smoke None; Cigarette Smoking Last 365 Days No; Reg Smoking Cessation Counseling No Assessment and Plan No data available for this section
--- OUTSIDE RECORDS SUMMARY | 2018-04-11 21:49 | XMS REPORT | Summary of Care ---
Author Author [facility] Organization [facility] Address Unknown Phone Unavailable Encounter HQ Dennis(RAZA) [id number] Date(s): 09/30/17 - 09/30/17 [facility] [address] [facility], [address] [place] [phone] Discharge Disposition: Home or Self Care Attending Physician: Sawyer Brown MD Vital Signs Most recent to 1 oldest [Reference Range]: Height 172.72 cm (09/30/17 2:35 PM) Temperature Oral 92 DegF [96.4-99.1 DegF] *LOW* (09/30/17 2:35 PM) Blood Pressure 119/86 mmHg [90-140/60-90 mmHg] (09/30/17 2:35 PM) Weight 103.409 kg (09/30/17 2:35 PM) Body Mass Index 34.66 m2 (09/30/17 2:35 PM) Problem List Condition Effective Dates Status [...]
--- OUTSIDE RECORDS SUMMARY | 2018-04-11 21:49 | XMS REPORT | Summary of Care ---
Author Author [facility] Organization [facility] Address Unknown Phone Unavailable Encounter TRISHA Collins(RAZA) [id number] Date(s): 04/16/16 - 04/16/16 [facility] [address] [place] [address]- [phone] Discharge Diagnosis: Acute headache Discharge Diagnosis: Brain mass Discharge Disposition: Home Attending Physician: Kedar Espinal MD Vital Signs Most recent to 1 2 oldest [Reference Range]: Height 172.72 cm (04/16/16 1:45 PM) Temperature Oral 97.6 DegF 98.4 DegF [96.4-99.1 DegF] (04/16/16 3:44 PM) (04/16/16 1:45 PM) Blood Pressure 116/78 mmHg 125/87 mmHg [90-140/60-90 mmHg] (04/16/16 3:44 PM) (04/16/16 1:45 PM) Respiratory Rate 20 BRMIN 20 BRMIN [14-20 BRMIN] (04/16/16 3:44 PM) (04/16/16 1:45 PM) Peripheral Pulse 82 bpm 91 bpm Rate [60-100 bpm] (04/16/16 3:44 PM) (04/16/16 1:45 PM) Weight 91.818 kg (04/16/16 1:45 PM) Body Mass Index 30.78 m2 (04/16/16 1:45 PM) Problem List Condition Effective Dates Status Health Status Informant Brain Active tumor(Confirmed) Allergies, Adverse Reactions, Alerts Substance Reaction Severity Status NKDA Active Medications Benadryl 25 mg, Route: IVP, ONCE, Dosing Weight 91.818, kg, Start date: 04/16/16 13:48: 00 CDT, Stop date: 04/16/16 13:48:00 CDT Start Date: 04/16/16 Stop Date: 04/16/16 Status: Completed morphine Sulfate 4 mg, Route: IVP, Drug form: INJ, ONCE, Dosing Weight 91.818, kg, Priority: STAT , Start date: 04/16/16 14:37:00 CDT, Stop date: 04/16/16 14:37:00 CDT Start Date: 04/16/16 Stop Date: 04/16/16 Status: Completed [place] 5/325 oral tablet 1 tab, PO, Q6H, PRN for pain, X 3 day, # 12 tab, 0 Refill(s) Start Date: 04/16/16 Stop Date: 04/19/16 Status: Ordered Reglan 20 mg, Route: IV, ONCE, Dosing Weight 91.818, kg, Start date: 04/16/16 13:48:00 CDT, Stop date: 04/16/16 13:48:00 CDT Start Date: 04/16/16 Stop Date: 04/16/16 Status: Completed Sodium Chloride 0.9% (Bolus) IV 500 mL, 500 ml/hr, Infuse Over: 1 hr, Route: IV, ONCE, Priority: STAT, Dosing Weight 91.818 kg, Start date: 04/16/16 13:48:00 CDT, Duration: 1 doses or times , Stop date: 04/16/16 13:48:00 CDT Start Date: 04/16/16 Stop Date: 04/16/16 Status: Completed Results No data available for this section [...]
--- OUTSIDE RECORDS SUMMARY | 2018-04-11 21:50 | XMS REPORT | Summary of Care ---
Author Author [facility] Organization [facility] Address Unknown Phone Unavailable Encounter TRISHA Collins(RAZA) [id number] Date(s): 10/30/17 - 11/28/17 [facility] [address] [facility], [address] [phone] Encounter Diagnosis Encounter for antineoplastic radiation therapy (Final) - 12/02/17 Benign neoplasm of meninges, unspecified (Final) - Discharge Disposition: Home or Self Care Attending Physician: Fito Anderson MD Vital Signs 1 2 3 Most recent to oldest [Reference Range]: 97.4 DegF (11/23/17 11:11 AM) 98.2 DegF (11/09/17 11:36 AM) 96.5 DegF (11/03/17 5:06 PM) Temperature Oral [96.4-99.1 DegF] 124/74 mmHg (11/23/17 11:11 AM) 122/83 mmHg (11/09/17 11:36 AM) 128/83 mmHg (11/03/17 5:06 PM) Blood Pressure [90-140/60-90 mmHg] 18 BRMIN (11/23/17 11:11 AM) 18 BRMIN (11/09/17 11:36 AM) 14 BRMIN (11/03/17 5:06 PM) Respiratory Rate [14-20 BRMIN] 78 bpm (11/23/17 11:11 AM) 80 bpm (11/09/17 11:36 AM) 83 bpm (11/03/17 5:06 PM) Peripheral Pulse Rate [60-100 bpm] 102.727 kg (11/23/17 11:11 AM) 102.727 kg (11/09/17 11:36 AM) 103 kg (11/03/17 5:06 PM) Weight Problem List Condition Effective Dates Status Health Status Informant Brain Active tumor(Confirmed) GERD Active (gastroesophageal reflux disease)(Confirmed) Obesity(Confirmed) Active Obesity (BMI Active 30.0-34.9)(Confirmed )1 1BMI-33.3 Allergies, Adverse Reactions, Alerts Substance Reaction Severity Status NKDA Active Medications Medrol Dosepak 4 mg oral tablet See Instructions, PO, Take by mouth as directed on label., # 1 Pack, 0 Refill(s) , Pharmacy: [facility] [id number] Start Date: 11/05/17 Stop Date: 11/11/17 Status: Ordered ondansetron 8 mg oral tablet 8 mg=1 tab, PO, TID, as needed for nausea, # 90 tab, 0 Refill(s), Pharmacy: [facility] pharmacy #[id number] Start Date: 11/13/17 Status: Ordered ondansetron 8 mg oral tablet 8 mg=1 tab, PO, TID, as needed for nausea, # 90 tab, 0 Refill(s), Pharmacy: [facility] [id number] Start Date: 11/05/17 Status: Ordered Results No data available for this section Immunizations Given and Recorded Vaccine Date Status Refusal Reason pneumococcal 23-valent vaccine 01/02/17 Given Procedures Procedure Date Related Diagnosis Body Site Status Biopsy of brain tissue tumor Completed Cerebral angiogram Completed Craniotomy Completed Tumor destruction Completed Social History Social History Type Response Alcohol [...] Cessation Counseling Yes; Number of years: 10; entered on: 02/24/18 Assessment and Plan No data available for this section
--- OUTSIDE RECORDS SUMMARY | 2018-04-11 21:50 | XMS REPORT | Summary of Care ---
Author Author [facility] Organization [facility] Address Unknown Phone Unavailable Encounter TRISHA Collins(RAZA) [id number] Date(s): 09/30/17 - 10/29/17 [facility] [address] [facility], [address] [phone] Discharge Disposition: Home or Self Care Attending Physician: Fito Anderson MD Vital Signs Most recent to 1 oldest [Reference Range]: Temperature Oral 98.3 DegF [96.4-99.1 DegF] (09/30/17 3:58 PM) Blood Pressure 124/85 mmHg [90-140/60-90 mmHg] (09/30/17 3:58 PM) Respiratory Rate 20 BRMIN [14-20 BRMIN] (09/30/17 3:58 PM) Peripheral Pulse 91 bpm Rate [60-100 bpm] (09/30/17 3:58 PM) Problem List Condition Effective Dates Status Health Status Informant Brain Active tumor(Confirmed) GERD Active (gastroesophageal reflux disease)(Confirmed) Obesity(Confirmed) Active Obesity (BMI Active 30.0-34.9)(Confirmed )1 1BMI-33.3 Allergies, Adverse Reactions, Alerts Substance Reaction Severity Status NKDA Active Medications ondansetron 8 mg oral tablet 8 mg=1 tab, PO, TID, as needed for nausea, # 90 tab, 0 Refill(s), Pharmacy: [facility]/ pharmacy #[id number] Start Date: 10/28/17 Status: Ordered Results CHEM PANEL Most recent to 1 oldest [Reference Range]: eGFR 123 mL/min/1.73m2 1 *NA* (10/08/17 2:18 PM) POC Creatinine 0.7 mg/dL [0.5-1.4 mg/dL] (10/08/17 2:18 PM) 1Result Comment: The eGFR is calculated [...] should be multiplied by the estimated BMI. Immunizations Given and Recorded Vaccine Date Status [...]
--- OUTSIDE RECORDS SUMMARY | 2018-04-11 21:50 | XMS REPORT | Summary of Care ---
Author Author [facility] Organization [facility] Address Unknown Phone Unavailable Encounter HQ Gabriel_genaro(FIN) [id number] Date(s): 02/10/18 - 02/10/18 [facility] [address] [facility], [address] [place] [phone] Attending Physician: Sawyer Brown MD Vital Signs No data available for [...] Procedure Date Related Diagnosis Body Site Status Cerebral angiogram Completed Craniotomy Completed Tumor destruction [...] Yes; Number of years: 10; entered on: 09/30/17 Assessment and Plan No data available for this section
--- OUTSIDE RECORDS SUMMARY | 2018-04-11 21:50 | XMS REPORT | Summary of Care ---
Author Author [facility] Organization [facility] Neurosurgery [facility] Address Unknown Phone Unavailable Encounter TRISHA Collins(RAZA) [id number] Date(s): 02/24/18 - 02/24/18 [facility] [address] [facility], [address] [place], [place] [address] [phone] Discharge Disposition: Home or Self Care Attending Physician: Sawyer Brown MD Referring Physician: Sawyer Brown MD Vital Signs Most recent to 1 oldest [Reference Range]: Height 170.18 cm (02/24/18 3:16 PM) Temperature Oral 98.0 DegF [96.4-99.1 DegF] (02/24/18 3:16 PM) Blood Pressure 113/78 mmHg [90-140/60-90 mmHg] (02/24/18 3:16 PM) Peripheral Pulse 86 bpm Rate [60-100 bpm] (02/24/18 3:16 PM) Weight 101.364 kg (02/24/18 3:16 PM) Body Mass Index 35 m2 (02/24/18 3:16 PM) Problem List Condition Effective Dates Status [...]
--- OUTSIDE RECORDS SUMMARY | 2018-04-11 21:50 | XMS REPORT ---
Author Author Temi L[facility] Organization [employer] Address Unknown Phone Unavailable Care Team Providers Care Steamtable Worker Name Role Phone Temi Lr CP Unavailable Allergies, Adverse Reactions, Alerts Substance Reaction Event Type N.K.D.A. Info Not Available Non Drug Allergy Problems Problem Type Condition Code Onset Dates Condition Status Assessment Skin lesion of cheek L98.9 Active Assessment Screening for breast cancer Z12.31 Active Assessment Encounter to establish care Z76.89 Active Assessment Screening for cervical cancer Z12.4 Active Medications No Known Medications Vital Signs Date/Time: January 11, 2018 BMI 35.39 Index Weight 226 lbs Height 67 in Temperature 98.2 F Blood Pressure Diastolic 98 mm Hg Blood Pressure Systolic 128 mm Hg Results No Known Results Summary Purpose [employer] Submission
--- OUTSIDE RECORDS SUMMARY | 2018-04-11 21:50 | XMS REPORT | Summary of Care ---
Author Author [facility] Organization [facility] Address Unknown Phone Unavailable Encounter TRISHA Collins(RAZA) [id number] Date(s): 11/30/17 - 12/29/17 [facility] [address] [facility], [address] [phone] Encounter Diagnosis Benign neoplasm of meninges, unspecified (Final) - 01/01/18 Discharge Disposition: Home or Self Care Attending Physician: Fito Anderson MD Vital Signs 1 2 3 Most recent to oldest [Reference Range]: 98.2 DegF (12/07/17 11:31 AM) 96.9 DegF (11/30/17 1:54 PM) 98.0 DegF (11/16/17 11:36 AM) Temperature Oral [96.4-99.1 DegF] 114/76 mmHg (12/07/17 11:31 AM) 113/74 mmHg (11/30/17 1:54 PM) 118/76 mmHg (11/16/17 11:36 AM) Blood Pressure [90-140/60-90 mmHg] 18 BRMIN (12/07/17 11:31 AM) 18 BRMIN (11/30/17 1:54 PM) Respiratory Rate [14-20 BRMIN] 85 bpm (12/07/17 11:31 AM) 82 bpm (11/30/17 1:54 PM) 90 bpm (11/16/17 11:36 AM) Peripheral Pulse Rate [60-100 bpm] 102.955 kg (12/07/17 11:31 AM) 103.807 kg (11/30/17 1:54 PM) 103.636 kg (11/16/17 11:36 AM) Weight Problem List Condition Effective Dates Status [...]
--- OUTSIDE RECORDS SUMMARY | 2018-04-11 21:50 | XMS REPORT | Summary of Care ---
Author Author [facility] [place] Organization [facility] [place] Address Unknown Phone Unavailable Encounter HQ Dennis(FIN) [id number] Date(s): 02/09/18 - 02/09/18 [facility] [place] [address] [place] [address]- [phone] Discharge Disposition: Home or Self Care Attending [...]
[2018-04-11] MEDS ORDERED: ALBUTEROL SULF 0.083% NEB SOLN 3 ML NEB NEB STA (21:58)
[2018-04-11] MEDS ORDERED: IPRATROPIUM BROMIDE 0.02% 2.5 ML NEB NEB ONE (22:00)
[2018-04-11 22:14] LABS: BASOPHILS # (AUTO) 0.1 (0.0-0.1); BASOPHILS % 0.6 % (0.0-1.0); EOSINOPHILS # (AUTO) 0.3 (0.0-0.4); EOSINOPHILS % 2.7 % (0.0-6.0); HEMATOCRIT 39.4 % (34.2-44.1); LYMPHOCYTES % 42.1 % (18.0-39.1); MEAN CORPUSCULAR HEMOGLOBIN 27.5 pg (28-32); MEAN CORPUSCULAR VOLUME 83.5 fL (81-99); MONOCYTES # (AUTO) 0.9 (0.2-0.8); MONOCYTES % 9.1 % (4.4-11.3); NEUTROPHILS # (AUTO) 4.3 (2.1-6.9); NEUTROPHILS % 45.2 % (38.7-80.0); PLATELET COUNT 376 x10e3/uL (140-360); RED BLOOD COUNT 4.72 x10e6/uL (3.6-5.1); RED CELL DISTRIBUTION WIDTH 14.2 % (11.7-14.4)
[2018-04-11 22:30] LABS: INR 1.06
[2018-04-11 22:31] LABS: PARTIAL THROMBOPLASTIN TIME 31.5 seconds (23.8-35.5)
[2018-04-11 22:40] LABS: AMPHETAMINES SCREEN,URINE NEGATIVE (NEGATIVE); BENZODIAZEPINES SCREEN,URINE NEGATIVE (NEGATIVE); PHENCYCLIDINE SCREEN,URINE NEGATIVE (NEGATIVE)
[2018-04-11 22:40] LABS: ALANINE AMINOTRANSFERASE 52 IU/L (0-55); ALBUMIN 3.6 g/dL (3.5-5.0); ALBUMIN/GLOBULIN RATIO 0.9 (0.8-2.0); ALKALINE PHOSPHATASE 84 IU/L (40-150); ANION GAP 14.7 mmol/L (8-16); BLOOD UREA NITROGEN 9 mg/dL (7-26); BUN/CREATININE RATIO 11 (6-25); CALCIUM 9.2 mg/dL (8.4-10.2); CARBON DIOXIDE 23 mmol/L (22-29); CHLORIDE 106 mmol/L (98-107); CREATINE KINASE 78 IU/L (29-168); CREATININE, SERUM 0.83 mg/dL (0.57-1.11); EST GLOMERULAR FILTRATION RATE > 60 ML/MIN (60-); GLUCOSE 106 mg/dL (74-118); MAGNESIUM 1.6 MG/DL (1.3-2.1); POTASSIUM 3.7 mmol/L (3.5-5.1); SODIUM 140 mmol/L (136-145)
[2018-04-11 22:41] LABS: CLARITY,URINE CLEAR (CLEAR); COLOR,URINE YELLOW (YELLOW); KETONES,URINE TRACE (NEGATIVE); LEUKOCYTE ESTERASE ,URINE TRACE (NEGATIVE); NITRITE,URINE NEGATIVE (NEGATIVE); PREGNANCY TEST, URINE NEGATIVE (NEGATIVE); PROTEIN,URINE DIPSTICK TRACE (NEGATIVE); URINE UROBILINOGEN 0.2 mg/dL (0.2 - 1)
[2018-04-11 22:42] LABS: BILIRUBIN,URINE NEGATIVE (NEGATIVE)
[2018-04-11 22:48] LABS: BACTERIA,URINE MODERATE /HPF; EPITHELIAL CELLS,URINE MANY /LPF; MUCUS,URINE MANY (RARE); RBC,URINE 0-5 /HPF (0-5)
--- NOTE | 2018-04-11 23:21 | Diagnostic Imaging Report ---
EXAMINATION: CHEST 2 VIEWS INDICATION: , Shortness of breath COMPARISON: None FINDINGS: TUBES and LINES: None. LUNGS: Lungs are well inflated. Lungs are clear. There is no evidence of pneumonia or pulmonary edema. PLEURA: No pleural effusion or pneumothorax. HEART AND MEDIASTINUM: The cardiomediastinal silhouette is unremarkable. BONES AND SOFT TISSUES: No acute osseous lesion. Soft tissues are unremarkable. UPPER ABDOMEN: No free air under the diaphragm. IMPRESSION: No acute thoracic abnormality. Signed by: Dr. Maximo Hurley M.D. on 04/11/2018 11:18 PM
[2018-04-11 23:39] VITALS: BP 105/75
== END 2018-04-12 00:04 | disposition home or self-care (01) ==
LOC: ER 21:44
DX: R05 Cough (principal); J20.9 Acute bronchitis, unspecified; E03.9 Hypothyroidism, unspecified; F17.210 Nicotine dependence, cigarettes, uncomplicated
CPT/HCPCS: 36415; 71046; 80053; 80307; 81001; 81025; 82550; 82553; 83605; 83735; 83880; 84484; 85025; 85610; 85730; 87040; 87086; 93005; 94640; 99284

== ENCOUNTER 2019-03-03 13:47 | Emergency (ER) | payer OTHER ==
[~2019-03-03] VITALS: Ht 170.2 cm; Wt 93.4 kg
--- OUTSIDE RECORDS SUMMARY | 2019-03-03 14:08 | XMS REPORT | Continuity of Care Document ---
Author Author [facility] Address Unknown Phone Unavailable Problems Problem Status Onset Date Classification Date Reported Comments Source Skin lesion of cheek Active Diagnosis 01/19/2018 Enayet Rahim Screening for breast cancer Active Diagnosis 01/19/2018 Enayet Rahim Encounter to establish care Active Diagnosis 01/19/2018 Enayet Rahim Screening for cervical cancer Active Diagnosis 01/19/2018 Enayet Rahim Medications Medication Details Route Status Patient Instructions Ordering Provider Order Date Source Allergies, Adverse Reactions, Alerts Substance Category Reaction Severity Reaction type Status Date Reported Comments Source N.K.D.A. Adverse Reaction Info Not Available Adverse Reaction Active 01/11/2018 Enayet Rahim Immunizations Immunization Date Given Site Status Last Updated Comments Source Results Order Name Results Value Reference Range Date Interpretation Comments Source Vital Signs Vital Sign Value Date Comments Source Weight 226 01/11/2018 Enayet Rahim Height 67 01/11/2018 Enayet Rahim Temperature Oral (F) 98.2 F 01/11/2018 Enayet Rahim Diastolic (mm Hg) 98 01/11/2018 Enayet Rahim Systolic (mm Hg) 128 01/11/2018 Enayet Rahim Encounters Location Location Details Encounter Type Encounter Number Reason For Visit Attending Provider ADM Date DC Date Status Source Procedures Procedure Code Date Perfomer Comments Source
--- OUTSIDE RECORDS SUMMARY | 2019-03-03 14:08 | XMS REPORT ---
Author Author [facility] Address Unknown Phone Unavailable Care Team Providers Care Building Admin Name Role Phone Nini RETANA Unavailable Unavailable Problems This patient has no known problems. Allergies, Adverse Reactions, Alerts This patient has no known allergies or adverse reactions. Medications This patient has no known medications. Results Test Description Test Time Test Comments Text Results Atomic Results Result Comments CHEST 2 VIEWS 2018-04-11 23:17:00 [place] [address] Patient Name: SUMI NIXON MR #: [id number] : 1975 Age/Sex: 42/F Req #: [id number] [facility] Physician: Ordered by: LILO RETANA MD Report #: [id number] Location: ER Room/Bed: Procedure: [id number] DX/CHEST 2 VIEWS Exam Date: 04/11/18 Exam Time: 2216 REPORT STATUS: Signed EXAMINATION: CHEST 2 VIEWS INDICATION: , Shortness of breath COMPARISON: None FINDINGS: TUBES and LINES: None. LUNGS: Lungs are well inflated. Lungs are clear. There is no evidence of pneumonia or pulmonary edema. PLEURA: No pleural effusion or pneumothorax. HEART AND MEDIASTINUM: The cardiomediastinal silhouette is unremarkable. BONES AND SOFT TISSUES: No acute osseous lesion. Soft tissues are unremarkable. UPPER ABDOMEN: No free air under the diaphragm. IMPRESSION: No acute thoracic abnormality. Signed by: Dr. Maximo Hurley M.D. on 04/11/2018 11:18 PM Dictated By: MAXIMO MERAZ MD 17 Transcribed By: NANCY on 04/11/182317 COPY TO: LILO RETANA MD
== END 2019-03-03 14:29 | disposition home or self-care (01) ==
LOC: FSED 13:47
DX: A60.04 Herpesviral vulvovaginitis (principal)
CPT/HCPCS: 87252; 99283